=== PATIENT | female | born 1940 | race Caucasian/White ===

== ENCOUNTER 2017-09-03 09:47 | Emergency (ER) | payer MEDICARE, OTHER ==
--- NOTE | 2017-09-03 10:42 | EDM.PDOC ---
ED HPI GENERAL MEDICAL PROBLEM - General Chief Complaint: Neuro Symptoms/Deficits Stated Complaint: MEDICAL Time Seen by Provider: 09/03/17 10:15 Source of Information: Reports: Patient, EMS History Limitations: Reports: No Limitations - History of Present Illness INITIAL COMMENTS - FREE TEXT/NARRATIVE: 76-year-old female with sudden onset of vertigo last evening. She was watching TV when she got up to go to the bathroom and had a sudden onset of spinning sensation and difficulty walking. It bothered her all night, some nausea but no vomiting and no pain. No peripheral symptoms such as extremity weakness. Today she was still having difficulty getting around her apartment so she called the ambulance. They had to assist her to the gurney because she was so unsteady. She has not had previous episodes similar to this, no recent illness, fever, or trauma. Onset: Sudden Duration: Hour(s): (13-14 hours ago, symptoms developed last evening) Severity: Moderate Associated Symptoms: Reports: Malaise, Weakness. Denies: Fever/Chills, Loss of Appetite Right Arm Pain Score (Numeric/FACES): 10 - Related Data Allergies Allergy/AdvReac Type Severity Reaction Status Date / Time azithromycin [From Zithromax] Allergy Hives Verified 09/03/17 16:04 citalopram Allergy Cannot Verified 09/03/17 16:04 Remember paroxetine Allergy Cannot Verified 09/03/17 16:04 Remember Sulfa (Sulfonamide Allergy Rash Verified 09/03/17 16:04 Antibiotics) trazodone Allergy Arrhythmias Verified 09/03/17 16:04 Home Meds: Home Meds Albuterol [Proair HFA] 2 puff INH Q4H 05/11/15 [History] Aspirin [Adult Low Dose Aspirin EC] 81 mg PO DAILY 05/11/15 [History] Biotin 1 mg PO DAILY 05/11/15 [History] Cholecalciferol (Vitamin D3) [Vitamin D3] 1,000 unit PO DAILY 05/11/15 [History] Ipratropium/Albuterol Sulfate [Iprat-Albut 0.5-3(2.5) MG/3 ML] 3 ml INH Q6H PRN 05/11/15 [History] Montelukast [Singulair] 10 mg PO BEDTIME 05/11/15 [History] Multivitamin [Multi-Vitamin Daily] 1 tab PO DAILY 05/11/15 [History] Sertraline [Zoloft] 100 mg PO DAILY 05/11/15 [History] Past Medical History 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 Respiratory History: Reports: COPD, Other (See Below) Other Respiratory History: home 02 3L Neurological History: Reports: Other (See Below) Other Neuro History: ventigo this am ambulance found her sitting on floor in apartment Psychiatric History: Reports: Depression Social & Family History - Tobacco Use Smoking Status *Q: Former Smoker Years of Tobacco use: 30 Used Tobacco, but Quit: Yes Month Tobacco Last Used: 240 Second Hand Smoke Exposure: No - Caffeine Use Caffeine Use: Reports: Coffee - Recreational Drug Use Recreational Drug Use: No - Living Situation & Occupation Living situation: Reports: Alone ED ROS GENERAL - Review of Systems Review Of Systems: See Below Constitutional: Reports: Malaise. Denies: Fever, Chills HEENT: Reports: Other (Left eye is artificial) Respiratory: Denies: Shortness of Breath Cardiovascular: Denies: Chest Pain GI/Abdominal: Denies: Abdominal Pain, Nausea, Vomiting Neurological: Reports: Dizziness. Denies: Headache Psychiatric: Reports: No Symptoms ED EXAM, NEURO - Physical Exam Exam: See Below Exam Limited By: No Limitations General Appearance: Alert, No Apparent Distress Eye Exam: Right Eye: Nystagmus (Patient has a small amount of right eye nystagmus when looking to the left), Left Eye: Other (Left eye is prosthetic) Neck: Normal Inspection. No: Carotid Bruit Respiratory/Chest: No Respiratory Distress, Lungs Clear Cardiovascular: Regular Rate, Rhythm, Extra Beats (Occasional ectopic beats) Neurological: Alert, No Motor/Sensory Deficits Psychiatric: Normal Affect, Normal Mood Skin Exam: Warm, Dry Course - Vital Signs Last Recorded V/S: Last Vital Signs Temp 96.1 F 09/03/17 09:56 Pulse 96 09/03/17 11:14 Resp 22 H 09/03/17 09:56 BP 149/82 H 09/03/17 11:14 Pulse Ox 97 09/03/17 09:56 - Orders/Labs/Meds Meds: Medications Discontinued Medications Generic Name Dose Route Start Last Admin Trade Name Freq PRN Reason Stop Dose Admin Meclizine HCl 25 mg 09/03/17 10:53 09/03/17 10:57 Antivert PO 09/03/17 10:54 25 mg ONETIME ONE Administration - Re-Assessments/Exams Free Text/Narrative Re-Assessment/Exam: 09/03/17 10:49 Because of the intensity of the symptoms and sudden onset, a CT the head was obtained. 09/03/17 11:[address] was negative for any acute findings. It did show some chronic hydrocephaly-like changes and there were no previous films for comparison. 30 minutes after a 25 mg dose of meclizine the patient was feeling much better. She wanted to try to treat this at home so was discharged with extra doses of meclizine to take 3 times daily. I asked her to follow up with her primary physician in the next 1-2 weeks at discuss the CT findings and she can return sooner if worsening. Departure - Departure Time of Disposition: 12:49 Disposition: Home, Self-Care 01 Condition: Good Clinical Impression: Vertigo - Discharge Information Instructions: Vertigo, [id number] Referrals: PCP,None [Primary Care Provider] - Forms: ED Department Discharge Care Plan Goals: Use meclizine as prescribed for the next couple of days if needed. Resume activity as tolerated and return anytime if worsening. Recheck next week if not improving satisfactorily.
[2017-09-03] MEDS ORDERED: Meclizine 25 MG Tab PO ONE (10:53)
--- NOTE | 2017-09-03 11:07 | CT ---
Head wo Cont HISTORY: Sudden severe vertigo COMPARISON: None Total DLP: 708. FINDINGS: There is hydrocephalus. There is dilatation of the lateral ventricles as well as third vent ricle. Fourth ventricle is not dilated. There is no hemorrhage, mass effect, or edema. There are scat tered coarse calcifications involving the cerebral cortex bilaterally. Impression: 1. Findings concerning for obstructive hydrocephalus perhaps at the aqueduct of [place]. If there are prior studies performed elsewhere comparison would be useful. 2. Scattered coarse calcifications of the cerebral cortex bilaterally. The findings suggest a prior g ranulomatous or infectious process.
[2017-09-03 11:14] VITALS: BP 149/82
== END 2017-09-03 12:48 | disposition home or self-care (01) ==
LOC: JP.ED 09:47
DX: R42 Dizziness and giddiness (principal); J44.9 Chronic obstructive pulmonary disease, unspecified; F32.9 Major depressive disorder, single episode, unspecified; Z88.1 Allergy status to other antibiotic agents; Z88.2 Allergy status to sulfonamides; Z88.8 Allergy status to other drugs, medicaments and biological substances; Z87.891 Personal history of nicotine dependence; Z79.82 Long term (current) use of aspirin
CPT/HCPCS: 70450; 99284; A9270

== ENCOUNTER 2017-09-03 15:56 | Inpatient (IN) | payer MEDICARE, OTHER ==
[2017-09-03] MEDS ORDERED: methylPREDNISolone Sodium Succinate 125 MG/2 ML SDV IVPUSH ONE (15:58)
[2017-09-03] MEDS ORDERED: Albuterol/Ipratropium 3.0-0.5 MG/3 ML Neb Soln NEB ONE (16:05)
[2017-09-03] MEDS ORDERED: Albuterol/Ipratropium 3.0-0.5 MG/3 ML Neb Soln ONE (16:07)
--- NOTE | 2017-09-03 16:12 | EDM.PDOC ---
ED HPI GENERAL MEDICAL PROBLEM - General Chief Complaint: Respiratory Problem Stated Complaint: MEDICAL Time Seen by Provider: 09/03/17 15:56 Source of Information: Reports: Patient, EMS History Limitations: Reports: Physical Impairment, Respiratory Distress - History of Present Illness INITIAL COMMENTS - FREE TEXT/NARRATIVE: 76-year-old female who was in the emergency room this morning with vertigo and dizziness went home and several hours later became acutely short of breath. EMS was called and when they arrived she was tripoding, O2 saturations in the mid to upper 80s and laboring. A DuoNeb was given and CPAP applied, O2 saturations 95% on arrival to the emergency room but she was still very short of breath. She does have a history of COPD. She was anxious this morning prior to discharge but not dyspneic. Onset: Sudden (Within the last few hours) Severity: Moderate Improves with: Reports: Other (Nebulizer and CPAP was improving her condition) Associated Symptoms: Reports: Weakness, Other (Evaluated for vertigo earlier this morning). Denies: Fever/Chills, Headaches - Related Data Allergies Allergy/AdvReac Type Severity Reaction Status Date / Time azithromycin [From Zithromax] Allergy Hives Verified 09/03/17 16:04 citalopram Allergy Cannot Verified 09/03/17 16:04 Remember paroxetine Allergy Cannot Verified 09/03/17 16:04 Remember Sulfa (Sulfonamide Allergy Rash Verified 09/03/17 16:04 Antibiotics) trazodone Allergy Arrhythmias Verified 09/03/17 16:04 Home Meds: Home Meds Albuterol [Proair HFA] 2 puff INH Q4H 05/11/15 [History] Aspirin [Adult Low Dose Aspirin EC] 81 mg PO DAILY 05/11/15 [History] Biotin 1 mg PO DAILY 05/11/15 [History] Cholecalciferol (Vitamin D3) [Vitamin D3] 1,000 unit PO DAILY 05/11/15 [History] Ipratropium/Albuterol Sulfate [Iprat-Albut 0.5-3(2.5) MG/3 ML] 3 ml INH Q6H PRN 05/11/15 [History] Montelukast [Singulair] 10 mg PO BEDTIME 05/11/15 [History] Multivitamin [Multi-Vitamin Daily] 1 tab PO DAILY 09/05/15 [History] Sertraline [Zoloft] 100 mg PO DAILY 05/11/15 [History] Past Medical History 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 Respiratory History: Reports: COPD, Other (See Below) Other Respiratory History: home 02 3L Neurological History: Reports: Other (See Below) Other Neuro History: ventigo this am ambulance found her sitting on floor in apartment Psychiatric History: Reports: Depression Social & Family History - Tobacco Use Smoking Status *Q: Former Smoker Years of Tobacco use: 30 Used Tobacco, but Quit: Yes Month Tobacco Last Used: 240 Second Hand Smoke Exposure: No - Caffeine Use Caffeine Use: Reports: Coffee - Recreational Drug Use Recreational Drug Use: No - Living Situation & Occupation Living situation: Reports: Alone ED ROS GENERAL - Review of Systems Review Of Systems: Unable To Obtain (Patient is unable to respond with the CPAP and dyspnea, a review of systems was obtained on her visit this morning) ED EXAM, GENERAL - Physical Exam Exam: See Below Exam Limited By: Respiratory Distress General Appearance: Moderate Distress Eye Exam: Bilateral Eye: Other (Prosthetic left eye) Respiratory/Chest: Respiratory Distress, Decreased Breath Sounds (Bilaterally, especially on the right). No: Crackles, Rales Cardiovascular: Regular Rate, Rhythm, Tachycardia GI/Abdominal: Non-Tender Extremities: No: Pedal Edema Neurological: Alert, Oriented Psychiatric: Anxious Skin Exam: Warm, Dry Course - Vital Signs Last Recorded V/S: Last Vital Signs Temp 98.9 F 09/04/17 06:00 Pulse 121 H 09/04/17 06:00 Resp 25 H 09/04/17 06:00 BP 192/87 H 09/04/17 06:00 Pulse Ox 87 L 09/04/17 06:00 - Orders/Labs/Meds Orders: Active Orders 24 hr Category Date Time Status Chest 1V Frontal [CR] Stat Exams 09/03/17 15:58 Taken Medication Orders Acetaminophen (Tylenol) 650 mg PO Q4H PRN PRN Reason: Pain (Mild 1-3)/fever Acetaminophen (Tylenol) 650 mg RECTAL Q4H PRN PRN Reason: Mild pain/fever Albuterol (Proventil Neb Soln) 2.5 mg NEB Q4H PRN PRN Reason: Shortness Of Breath/wheezing Last Admin: 09/04/17 01:22 Dose: 2.5 mg Albuterol/Ipratropium (Duoneb 3.0-0.5 Mg/3 Ml) 3 ml NEB QIDRT [facility] Last Admin: 09/04/17 07:15 Dose: 3 ml Admin: 09/03/17 21:05 Dose: 3 ml Aspirin (Halfprin) 81 mg PO DAILY [facility] Budesonide (Pulmicort) 0.5 mg NEB BIDRT [facility] Last Admin: 09/04/17 07:15 Dose: 0.5 mg Admin: 09/03/17 21:05 Dose: 0.5 mg Docusate Sodium (Colace) 100 mg PO BID PRN PRN Reason: Constipation Enoxaparin Sodium (Lovenox) 40 mg SUBCUT Q24H [facility] Levofloxacin/Dextrose 750 mg/ (Premix) 150 mls @ 100 mls/hr IV Q24H [facility] Last Admin: 09/03/17 18:55 Dose: 100 mls/hr Sodium Chloride (Normal Saline) 1,000 mls @ 75 mls/hr IV ASDIRECTED [facility] Last Admin: 09/04/17 06:10 Dose: 75 mls/hr Infusion: 09/04/17 04:12 Dose: 75 mls/hr Infusion: 09/03/17 23:55 Dose: 75 mls/hr Admin: 09/03/17 18:29 Dose: 125 mls/hr Lorazepam (Ativan) 0.5 mg IVPUSH Q2H PRN PRN Reason: Anxiety Last Admin: 09/04/17 05:58 Dose: 0.5 mg Admin: 09/03/17 23:45 Dose: 0.5 mg Admin: 09/03/17 21:06 Dose: 0.5 mg Magnesium Hydroxide (Milk Of Magnesia) 30 ml PO Q12H PRN PRN Reason: Constipation Methylprednisolone Sodium Succinate (Solu-Medrol) 40 mg IVPUSH Q6H [facility] Last Admin: 09/04/17 04:04 Dose: 40 mg Admin: 09/03/17 21:14 Dose: 40 mg Montelukast Sodium (Singulair) 10 mg PO BEDTIME [facility] Last Admin: 09/03/17 21:14 Dose: 10 mg Ondansetron HCl (Zofran) 4 mg IV Q4H PRN PRN Reason: Nausea/Vomiting Oxycodone HCl (Oxycodone) 5 mg PO Q4H PRN PRN Reason: Pain (moderate 4-6) Last Admin: 09/04/17 01:06 Dose: 5 mg Polyethylene Glycol (Miralax) 17 gm PO DAILY PRN PRN Reason: Constipation Sertraline HCl (Zoloft) 100 mg PO DAILY [facility] Sodium Chloride (Saline Flush) 10 ml FLUSH ASDIRECTED PRN PRN Reason: Keep Vein Open Labs: Laboratory Tests 09/03/17 09/03/17 09/03/17 Range/Units 15:58 15:58 16:25 WBC 12.8 H (4.5-11.0) K/uL RBC 4.74 (3.30-5.50) M/uL Hgb 14.1 (12.0-15.0) g/dL Hct 43.4 (36.0-48.0) % MCV 92 (80-98) fL MCH 30 (27-31) pg MCHC 33 (32-36) % Plt Count 285 (150-400) K/uL Neut % (Auto) 92 H (36-66) % Lymph % (Auto) 4 L (24-44) % [place]vert % (Auto) 5 (2-6) % Eos % (Auto) 0 L (2-4) % Baso % (Auto) 0 (0-1) % Puncture Site Rt radial ABG pH 7.263 L (7.350-7.450) ABG pCO2 62.6 H (35.0-42.0) mmHg ABG pO2 88.0 (75.0-100.0) mmHg ABG HCO3 27.3 H (22.0-26.0) mmol/L ABG Total CO2 24.8 (21.0-25.0) mmol/L ABG O2 Saturation 95.2 (95.0-98.0) % ABG O2 Content 18.9 (15.0-23.0) %vol ABG Base Excess -0.8 mm/L ABG Hemoglobin 14.2 (12.0-16.0) g/dL ABG Oxyhemoglobin 94.2 % ABG Carboxyhemoglobin 0.3 (0.0-1.6) % ABG Methemoglobin 0.7 % Damien Test Pass O2 Delivery Device Non rebr mask Oxygen Flow Rate 10 L Sodium 137 L (140-148) mmol/L Potassium 4.9 (3.6-5.2) mmol/L Chloride 100 (100-108) mmol/L Carbon Dioxide 28 (21-32) mmol/L Anion Gap 13.9 (5.0-14.0) mmol/L BUN 20 H D (7-18) mg/dL Creatinine 0.7 (0.6-1.0) mg/dL Est Cr Clr Drug Dosing 49.88 mL/min Estimated GFR (MDRD) > 60 (>60) Glucose 166 H (74-106) mg/dL Calcium 9.0 (8.5-10.1) mg/dL Total Bilirubin 0.5 (0.2-1.0) mg/dL AST 32 (15-37) U/L ALT 40 (12-78) U/L Alkaline Phosphatase 76 (46-116) U/L Troponin I 0.085 H* (0.000-0.056) ng/mL Total Protein 6.9 (6.4-8.2) g/dL Albumin 3.7 (3.4-5.0) g/dL Globulin 3.2 (2.3-3.5) g/dL Albumin/Globulin Ratio 1.2 (1.2-2.2) Meds: Medications Generic Name Dose Route Start Last Admin Trade Name Freq PRN Reason Stop Dose Admin Acetaminophen 650 mg 09/03/17 17:39 Tylenol PO Q4H PRN Pain (Mild 1-3)/fever Acetaminophen 650 mg 09/03/17 17:39 Tylenol RECTAL Q4H PRN Mild pain/fever Albuterol 2.5 mg 09/03/17 17:39 09/04/17 01:22 Proventil Neb Soln NEB 2.5 mg Q4H PRN Administration Shortness Of Breath/wheezing Albuterol/Ipratropium 3 ml 09/03/17 21:00 09/04/17 07:15 Duoneb 3.0-0.5 Mg/3 Ml NEB 3 ml QIDRT [facility] Administration Aspirin 81 mg 09/04/17 09:00 Halfprin PO DAILY [facility] Budesonide 0.5 mg 09/03/17 21:00 09/04/17 07:15 Pulmicort NEB 0.5 mg BIDRT [facility] Administration Docusate Sodium 100 mg 09/03/17 17:39 Colace PO BID PRN Constipation Enoxaparin Sodium 40 mg 09/04/17 20:00 Lovenox SUBCUT Q24H [facility] Levofloxacin/Dextrose 750 mg/ 150 mls @ 100 mls/hr 09/03/17 18:00 09/03/17 18 :55 Premix IV 100 mls/hr Q24H [facility] Administration Sodium Chloride 1,000 mls @ 75 mls/hr 09/03/17 17:39 09/04/17 06:10 Normal Saline IV 75 mls/hr ASDIRECTED [facility] Administration Lorazepam 0.5 mg 09/03/17 17:39 09/04/17 05:58 Ativan IVPUSH 0.5 mg Q2H PRN Administration Anxiety Magnesium Hydroxide 30 ml 09/03/17 17:39 Milk Of Magnesia PO Q12H PRN Constipation Methylprednisolone Sodium Succinate 40 mg 09/03/17 22:00 09/04/17 04:04 Solu-Medrol IVPUSH 40 mg Q6H [facility] Administration Montelukast Sodium 10 mg 09/03/17 21:00 09/03/17 21:14 Singulair PO 10 mg BEDTIME [facility] Administration Ondansetron HCl 4 mg 09/03/17 17:39 Zofran IV Q4H PRN Nausea/Vomiting Oxycodone HCl 5 mg 09/03/17 17:39 09/04/17 01:06 Oxycodone PO 5 mg Q4H PRN Administration Pain (moderate 4-6) Polyethylene Glycol 17 gm 09/03/17 17:39 Miralax PO DAILY PRN Constipation Sertraline HCl 100 mg 09/04/17 09:00 Zoloft PO DAILY [facility] Sodium Chloride 10 ml 09/03/17 17:39 Saline Flush FLUSH ASDIRECTED PRN Keep Vein Open Discontinued Medications Generic Name Dose Route Start Last Admin Trade Name Freq PRN Reason Stop Dose Admin Albuterol/Ipratropium 3 ml 09/03/17 16:05 09/03/17 16:40 Duoneb 3.0-0.5 Mg/3 Ml NEB 09/03/17 16:06 3 ml ONETIME ONE Administration Albuterol/Ipratropium Confirm 09/03/17 16:07 Duoneb 3.0-0.5 Mg/3 Ml Administered 09/03/17 16:08 Dose 3 ml .ROUTE .STK-MED ONE Enoxaparin Sodium 40 mg 09/03/17 17:39 09/03/17 19:52 Lovenox SUBCUT 40 mg DAILY [facility] Administration Lorazepam 0.5 mg 09/03/17 16:28 09/03/17 16:40 Ativan IVPUSH 09/03/17 16:29 0.5 mg ONETIME ONE Administration Lorazepam 0.5 mg 09/03/17 17:19 09/03/17 17:35 Ativan IVPUSH 09/03/17 17:20 0.5 mg ONETIME ONE Administration Methylprednisolone Sodium Succinate 125 mg 09/03/17 15:58 09/03/17 16:40 Solu-Medrol IVPUSH 09/03/17 15:59 125 mg ONETIME ONE Administration - Re-Assessments/Exams Free Text/Narrative Re-Assessment/Exam: 09/03/17 16:12 A 1 view chest x-ray showed hyperinflation of the right lung, chronic scarring but no acute findings, stable from previous x-rays. And second DuoNeb was given , an IV started and the patient was given 125 mg of Solu-Medrol. CBC CMP and troponin were obtained. 09/03/17 17:11 Hemoglobin was normal. White count was 14,000. Troponin returned slightly elevated at 0.08, likely from cardiac stress. BiPAP was ordered. ABGs done revealed a pH of 7.26, PCO2 of 62.6. Ativan 0.5 mg was given IV and the patient started to slowly improve. Dr. Morris was consulted to admit the patient for COPD exacerbation. I did discuss her head CT findings with neurology and it was felt the findings were chronic and very unlikely acute, however if she develops neurologic symptoms she would need urgent transfer to a neurosurgery capable hospital. Departure - Departure Time of Disposition: 18:06 Disposition: Admitted As Inpatient 67 Condition: Poor Clinical Impression: COPD exacerbation, Respiratory distress, acute, Anxiety - Discharge Information - My Orders Last 24 Hours: My Active Orders 09/03/17 15:58 Chest 1V Frontal [CR] Stat - Assessment/Plan Last 24 Hours: My Active Orders 09/03/17 15:58 Chest 1V Frontal [CR] Stat
[2017-09-03] MEDS ORDERED: LORazepam 2 MG/ML MDV IVPUSH ONE ×2 (16:28→17:19)
--- NOTE | 2017-09-03 17:38 | PCM.HP ---
H&P History of Present Illness - General Date of Service: 09/03/17 Admit Problem/Dx: Admission Diagnosis/Problem Admission Diagnosis/Problem Hypoxia Source of Information: Patient, Family, Old Records, Provider, RN Notes Reviewed History Limitations: Reports: Respiratory Distress (On BiPAP) - History of Present Illness Initial Comments - Free Text/Narative: Ms. Cheatham is a 76-year-old woman admitted through the emergency department with acute on chronic respiratory failure. At baseline she has severe COPD and does require use of oxygen at home. She came into the emergency department this morning because of acute onset of vertigo which occurred on the evening prior to admission and persisted into the following morning. CT scan of the head was obtained which did show dilatation of the ventricles, she had no specific neurologic compromise and after review with neurology it was felt likely that this was chronic and did not require acute evaluation. She was discharged home with family members. After arriving at home she rapidly developed significant respiratory compromise with increased shortness of breath. EMS was contacted and brought her into the emergency department for reassessment. She was noted to have severe respiratory compromise with hypoxia and hypercapnia. Chest x-ray shows no obvious infiltrate on initial assessment, white blood cell count is mildly elevated. Respiratory rate has remained increased despite supplemental oxygen and nebulizer therapy. She has been started on noninvasive positive pressure ventilation in the emergency department. I reviewed her wishes for CODE STATUS when I saw her in the emergency department and she is very emphatic about not wanting CPR, defibrillation, or intubation with mechanical ventilation. Both of her sons were present during this discussion. - Related Data Allergies/Adverse Reactions: Allergies Allergy/AdvReac Type Severity Reaction Status Date / Time azithromycin [From Zithromax] Allergy Hives Verified 09/03/17 16:04 citalopram Allergy Cannot Verified 09/03/17 16:04 Remember paroxetine Allergy Cannot Verified 09/03/17 16:04 Remember Sulfa (Sulfonamide Allergy Rash Verified 09/03/17 16:04 Antibiotics) trazodone Allergy Arrhythmias Verified 09/03/17 16:04 Home Medications: Home Meds Albuterol [Proair HFA] 2 puff INH Q4H 05/11/15 [History] Aspirin [Adult Low Dose Aspirin EC] 81 mg PO DAILY 05/11/15 [History] Biotin 1 mg PO DAILY 05/11/15 [History] Cholecalciferol (Vitamin D3) [Vitamin D3] 1,000 unit PO DAILY 05/11/15 [History] Ipratropium/Albuterol Sulfate [Iprat-Albut 0.5-3(2.5) MG/3 ML] 3 ml INH Q6H PRN 05/11/15 [History] Montelukast [Singulair] 10 mg PO BEDTIME 05/11/15 [History] Multivitamin [Multi-Vitamin Daily] 1 tab PO DAILY 05/11/15 [History] Sertraline [Zoloft] 100 mg PO DAILY 05/11/15 [History] Past Medical History 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 Respiratory History: Reports: COPD, Other (See Below) Other Respiratory History: home 02 3L Neurological History: Reports: Other (See Below) Other Neuro History: ventigo this am ambulance found her sitting on floor in apartment Psychiatric History: Reports: Depression Social & Family History - Tobacco Use Smoking Status *Q: Former Smoker Years of Tobacco use: 30 Used Tobacco, but Quit: Yes Month Tobacco Last Used: 240 Second Hand Smoke Exposure: No - Caffeine Use Caffeine Use: Reports: Coffee - Recreational Drug Use Recreational Drug Use: No - Living Situation & Occupation Living situation: Reports: Alone H&P Review of Systems - Review of Systems: Review Of Systems: See Below General: Reports: Fever, Chills, Weakness, Diaphoresis, Decreased Appetite HEENT: Reports: Vertigo. Denies: Ear Pain, Eye Pain, Headaches Pulmonary: Reports: Shortness of Breath, Wheezing, Cough. Denies: Sputum, Hemoptysis Cardiovascular: Reports: Dyspnea on Exertion. Denies: Chest Pain, Palpitations , Orthopnea, PND, Edema, Lightheadedness Gastrointestinal: Reports: No Symptoms Genitourinary: Reports: No Symptoms Musculoskeletal: Reports: No Symptoms Skin: Reports: No Symptoms Psychiatric: Reports: No Symptoms Neurological: Reports: No Symptoms Hematologic/Lymphatic: Reports: No Symptoms Immunologic: Reports: No Symptoms Exam - Exam Exam: See Below - Vital Signs Vital Signs: Last Vital Signs Temp 95.8 F 09/03/17 16:39 Pulse 127 H 09/03/17 16:59 Resp 32 H 09/03/17 16:39 BP 172/84 H 09/03/17 16:59 Pulse Ox 88 L 09/03/17 16:59 Weight: 105 lb 13.15 oz - Exam Quality Assessment: Supplemental Oxygen, DVT Prophylaxis General: Alert, Cooperative, Severe Distress HEENT: Conjunctiva Clear, Hearing Intact, Mucosa Moist & [place], Normal Nasal Septum, Posterior Pharynx Clear, Pupils Equal Neck: Supple, Trachea Midline, +2 Carotid Pulse wo Bruit Lungs: Decreased Breath Sounds, Rhonchi, Wheezing. No: Crackles, Rales, Rub, Stridor Cardiovascular: Regular Rhythm, Normal S1, Normal S2, Tachycardia. No: Irregular Rhythm, Systolic Murmur, Diastolic Murmur GI/Abdominal Exam: Soft, Non-Tender, No Organomegaly, No Distention Back Exam: Normal Inspection, Full Range of Motion Extremities: Non-Tender, No Pedal Edema Skin: Warm, Dry, Intact Neurological: Cranial Nerves Intact, Strength Equal Bilateral, Normal Speech, Normal Tone, Sensation Intact. No: Focal Deficit Neuro Extensive - Mental Status: Alert, Oriented x3, Normal Mood/Affect, Normal Cognition, Memory Intact - Patient Data Lab Results Last 24 hrs: Laboratory Results - last 24 hr 09/03/17 09/03/17 09/03/17 Range/Units 15:58 15:58 16:25 WBC 12.8 H (4.5-11.0) K/uL RBC 4.74 (3.30-5.50) M/uL Hgb 14.1 (12.0-15.0) g/dL Hct 43.4 (36.0-48.0) % MCV 92 (80-98) fL MCH 30 (27-31) pg MCHC 33 (32-36) % Plt Count 285 (150-400) K/uL Neut % (Auto) 92 H (36-66) % Lymph % (Auto) 4 L (24-44) % [place] % (Auto) 5 (2-6) % Eos % (Auto) 0 L (2-4) % Baso % (Auto) 0 (0-1) % Puncture Site Rt radial ABG pH 7.263 L (7.350-7.450) ABG pCO2 62.6 H (35.0-42.0) mmHg ABG pO2 88.0 (75.0-100.0) mmHg ABG HCO3 27.3 H (22.0-26.0) mmol/L ABG Total CO2 24.8 (21.0-25.0) mmol/L ABG O2 Saturation 95.2 (95.0-98.0) % ABG O2 Content 18.9 (15.0-23.0) %vol ABG Base Excess -0.8 mm/L ABG Hemoglobin 14.2 (12.0-16.0) g/dL ABG Oxyhemoglobin 94.2 % ABG Carboxyhemoglobin 0.3 (0.0-1.6) % ABG Methemoglobin 0.7 % Damien Test Pass O2 Delivery Device Non rebr mask Oxygen Flow Rate 10 L Sodium 137 L (140-148) mmol/L Potassium 4.9 (3.6-5.2) mmol/L Chloride 100 (100-108) mmol/L Carbon Dioxide 28 (21-32) mmol/L Anion Gap 13.9 (5.0-14.0) mmol/L BUN 20 H D (7-18) mg/dL Creatinine 0.7 (0.6-1.0) mg/dL Est Cr Clr Drug Dosing 49.88 mL/min Estimated GFR (MDRD) > 60 (>60) Glucose 166 H (74-106) mg/dL Calcium 9.0 (8.5-10.1) mg/dL Total Bilirubin 0.5 (0.2-1.0) mg/dL AST 32 (15-37) U/L ALT 40 (12-78) U/L Alkaline Phosphatase 76 (46-116) U/L Troponin I 0.085 H* (0.000-0.056) ng/mL Total Protein 6.9 (6.4-8.2) g/dL Albumin 3.7 (3.4-5.0) g/dL Globulin 3.2 (2.3-3.5) g/dL Albumin/Globulin Ratio 1.2 (1.2-2.2) Result Diagrams: 09/03/17 15:58 09/03/17 15:58 *Q Meaningful Use (ADM) - VTE *Q VTE Criteria *Q: - VTE Risk Assess *Q Each Risk Factor Represents 1 Point: Abnormal Pulmonary Function (COPD) Total Score 1 Point Risk Factors: 1 Each Risk Factor Represents 2 Points: None Total Score 2 Point Risk Factors: 0 Each Risk Factor Represents 3 Points: Age 75 Years or Greater Total Score 3 Point Risk Factors: 3 Each Risk Factor Represents 5 Points: None Total Score 5 Point Risk Factors: 0 Venous Thromboembolism Risk Factor Score *Q: 4 - Stroke *Q Stroke Criteria *Q: - AMI *Q AMI Criteria *Q: Problem List Initiated/Reviewed/Updated: Yes Orders Last 24hrs: Active Orders 24 hr Category Date Time Status Patient Status Manage Transfer [TRANSFER] Routine ADT 09/03/17 17:21 Ordered BIPAP Adult [RT BiPAP/CPAP] [RC] ASDIRECTED Care 09/03/17 16:42 Active RT Aerosol Therapy [RC] ASDIRECTED Care 09/03/17 16:06 Active Chest 1V Frontal [CR] Stat Exams 09/03/17 15:58 Taken Resuscitation Status Routine Resus Stat 09/03/17 17:22 Ordered Assessment/Plan Comment:: ASSESSMENT AND PLAN ACUTE ON CHRONIC HYPOXIC AND HYPERCAPNIC RESPIRATORY FAILURE-secondary to COPD exacerbation and likely underlying bronchitis. Chest x-ray shows no obvious infiltrate, white blood cell count is modestly elevated. She has a long- standing history of oxygen-dependent COPD. -Blood and sputum cultures pending -IV fluids for hydration -Noninvasive positive pressure ventilation -Nebulizer therapy with albuterol, duo nebs, and Pulmicort -Levofloxacin 750 mg IV every 24 hours -Solu-Medrol 40 milligrams IV every 6 hours COPD EXACERBATION SECONDARY TO BRONCHITIS -Management as above BENIGN POSITIONAL VERTIGO -Anti-medic therapy as needed -Symptomatic care PALLIATIVE CARE-patient is adamant about not wanting aggressive interventions past what we are currently doing. She understands that she is experiencing severe respiratory compromise and current interventions may not be enough to pull her through this episode. If she becomes worse despite interventions would like to be comfortable but does not want to consider intubation or mechanical ventilation. MAINTENANCE ISSUES -DVT prophylaxis; Lovenox 40 mg subcutaneous daily -GI prophylaxis; not indicated -Bellamy catheter; not indicated -Nutrition; regular diet -Nicotine dependence; not required CODE STATUS-DNR/DNI ADMISSION STATUS-patient will be admitted to inpatient status, expect at least a 2 night hospital stay for evaluation and management of problems as outlined above. At the time of this admission I do not reasonably expected evaluation and management of this problem will require more than a 96 hour hospital stay. DISPOSITION-anticipate discharge to home after the hospital stay. PRIMARY CARE PROVIDER-
[2017-09-03] MEDS ORDERED: Acetaminophen 650 MG Supp RECTAL PRN (17:39)
[2017-09-03] MEDS ORDERED: Enoxaparin 40 MG/0.4 ML Syringe SUBCUT SCH (17:39)
[2017-09-03] MEDS ORDERED: Ondansetron 4 MG/2 ML SDV IV PRN (17:39)
[2017-09-03] MEDS ORDERED: Polyethylene Glycol 3350 Powder 17 GM Packet PO PRN (17:39)
[2017-09-03] MEDS ORDERED: Sodium Chloride 0.9% 10 ML Syringe FLUSH PRN (17:39)
[2017-09-03] MEDS ORDERED: Acetaminophen 325 MG Tab PO PRN (17:39)
[2017-09-03] MEDS ORDERED: Magnesium Hydroxide 400 MG/5 ML Susp 30 ML Cup PO PRN (17:39)
[2017-09-03] MEDS ORDERED: Docusate Sodium 100 MG Cap PO PRN (17:39)
[2017-09-03] MEDS: Sodium Chloride 0.9% 1,000 ML IV SCH (18:29)
[2017-09-03] MEDS: Levofloxacin/Dextrose 5%-Water 750 MG in Premix Bag 1 BAG IV SCH (18:55)
[2017-09-03] MEDS: Albuterol/Ipratropium 3.0-0.5 MG/3 ML Neb Soln NEB SCH (21:05)
[2017-09-03] MEDS: Budesonide 0.5 MG/2 ML Neb Susp NEB SCH (21:05)
[2017-09-03] MEDS: LORazepam 2 MG/ML MDV IVPUSH PRN ×2 (21:06→23:45)
[2017-09-03] MEDS: Montelukast 10 MG Tab PO SCH (21:14)
[2017-09-03] MEDS: methylPREDNISolone Sodium Succinate 40 MG/1 ML SDV IVPUSH SCH (21:14)
[2017-09-04] MEDS: oxyCODONE 5 MG Tab PO PRN (01:06)
[2017-09-04] MEDS: Albuterol 0.083% 2.5 MG/3 ML Neb Soln NEB PRN (01:22)
[2017-09-04] MEDS: methylPREDNISolone Sodium Succinate 40 MG/1 ML SDV IVPUSH SCH ×4 (04:04→21:30)
[2017-09-04] MEDS: LORazepam 2 MG/ML MDV IVPUSH PRN ×2 (05:58→20:07)
[2017-09-04] MEDS: Sodium Chloride 0.9% 1,000 ML IV SCH ×2 (06:10→21:30)
[2017-09-04] MEDS: Albuterol/Ipratropium 3.0-0.5 MG/3 ML Neb Soln NEB SCH ×4 (07:15→20:28)
[2017-09-04] MEDS: Budesonide 0.5 MG/2 ML Neb Susp NEB SCH ×2 (07:15→20:28)
[2017-09-04] MEDS: Aspirin 81 MG Tab.EC PO SCH (08:33)
[2017-09-04] MEDS: Sertraline 50 MG Tab PO SCH (08:33)
--- NOTE | 2017-09-04 10:44 | PCM.PN ---
- General Info Date of Service: 09/04/17 Subjective Update: This patient has improved somewhat since admission, blood gases from this morning show adequate oxygenation and less CO2 retention. Continues to require use of noninvasive positive pressure ventilation and is unable to tolerate being off of support for any significant period of time. She reports that she is presently comfortable with use of the BiPAP. - Review of Systems General: Reports: Weakness. Denies: Fever, Chills Pulmonary: Reports: Shortness of Breath, Cough, Wheezing. Denies: Pleuritic Chest Pain, Sputum, Hemoptysis Cardiovascular: Reports: Dyspnea on Exertion. Denies: Chest Pain, Palpitations , Orthopnea, PND Gastrointestinal: Reports: No Symptoms - Patient Data Vitals - Most Recent: Last Vital Signs Temp 98.9 F 09/04/17 06:00 Pulse 121 H 09/04/17 06:00 Resp 25 H 09/04/17 06:00 BP 192/87 H 09/04/17 06:00 Pulse Ox 87 L 09/04/17 06:00 Weight - Most Recent: 110 lb 9.6 oz I&O - Last 24 Hours: Intake & Output 09/03/17 09/04/17 09/04/17 22:59 06:59 14:59 Intake Total 953 Output Total 150 Balance 803 Lab Results Last 24 Hours: Laboratory Results - last 24 hr 09/03/17 09/03/17 09/03/17 Range/Units 18:00 19:34 23:10 WBC (4.5-11.0) K/uL RBC (3.30-5.50) M/uL Hgb (12.0-15.0) g/dL Hct (36.0-48.0) % MCV (80-98) fL MCH (27-31) pg MCHC (32-36) % Plt Count (150-400) K/uL Neut % (Auto) (36-66) % Lymph % (Auto) (24-44) % [place] % (Auto) (2-6) % Eos % (Auto) (2-4) % Baso % (Auto) (0-1) % Puncture Site Lt radial ABG pH 7.254 L (7.350-7.450) ABG pCO2 61.2 H (35.0-42.0) mmHg ABG pO2 160.0 H (75.0-100.0) mmHg ABG HCO3 26.1 H (22.0-26.0) mmol/L ABG Total CO2 24.0 (21.0-25.0) mmol/L ABG O2 Saturation 98.8 H (95.0-98.0) % ABG O2 Content 18.7 (15.0-23.0) %vol ABG Base Excess -1.8 mm/L ABG Hemoglobin 13.5 (12.0-16.0) g/dL ABG Oxyhemoglobin 97.5 % ABG Carboxyhemoglobin 0.5 (0.0-1.6) % ABG Methemoglobin 0.8 % Damien Test Pass O2 Delivery Device Bipap Oxygen Flow Rate L Sodium (140-148) mmol/L Potassium (3.6-5.2) mmol/L Chloride (100-108) mmol/L Carbon Dioxide (21-32) mmol/L Anion Gap (5.0-14.0) mmol/L BUN (7-18) mg/dL Creatinine (0.6-1.0) mg/dL Est Cr Clr Drug Dosing mL/min Estimated GFR (MDRD) (>60) Glucose (74-106) mg/dL Lactic Acid 1.3 (0.4-2.0) mmol/L Calcium (8.5-10.1) mg/dL Magnesium (1.8-2.4) mg/dL Troponin I 0.659 H* (0.000-0.056) ng/mL 09/04/17 09/04/17 09/04/17 Range/Units 05:55 05:55 05:55 WBC 16.5 H (4.5-11.0) K/uL RBC 4.19 (3.30-5.50) M/uL Hgb 12.5 (12.0-15.0) g/dL Hct 39.0 (36.0-48.0) % MCV 93 (80-98) fL MCH 30 (27-31) pg MCHC 32 (32-36) % Plt Count 197 (150-400) K/uL Neut % (Auto) 95 H (36-66) % Lymph % (Auto) 2 L (24-44) % [place] % (Auto) 3 (2-6) % Eos % (Auto) 0 L (2-4) % Baso % (Auto) 0 (0-1) % Puncture Site R radial ABG pH 7.341 L (7.350-7.450) ABG pCO2 46.9 H (35.0-42.0) mmHg ABG pO2 72.8 L (75.0-100.0) mmHg ABG HCO3 24.7 (22.0-26.0) mmol/L ABG Total CO2 22.6 (21.0-25.0) mmol/L ABG O2 Saturation 94.6 L (95.0-98.0) % ABG O2 Content 16.1 (15.0-23.0) %vol ABG Base Excess -0.8 mm/L ABG Hemoglobin 12.3 (12.0-16.0) g/dL ABG Oxyhemoglobin 92.5 % ABG Carboxyhemoglobin 1.4 (0.0-1.6) % ABG Methemoglobin 0.8 % Damien Test [place] O2 Delivery Device Bipap Oxygen Flow Rate L Sodium 137 L (140-148) mmol/L Potassium 4.7 (3.6-5.2) mmol/L Chloride 103 (100-108) mmol/L Carbon Dioxide 26 (21-32) mmol/L Anion Gap 12.7 (5.0-14.0) mmol/L BUN 25 H (7-18) mg/dL Creatinine 0.7 (0.6-1.0) mg/dL Est Cr Clr Drug Dosing 49.88 mL/min Estimated GFR (MDRD) > 60 (>60) Glucose 129 H (74-106) mg/dL Lactic Acid (0.4-2.0) mmol/L Calcium 8.6 (8.5-10.1) mg/dL Magnesium 1.9 (1.8-2.4) mg/dL Troponin I 0.509 H* (0.000-0.056) ng/mL Med Orders - Current: Current Medications Acetaminophen (Tylenol) 650 mg PO Q4H PRN PRN Reason: Pain (Mild 1-3)/fever Acetaminophen (Tylenol) 650 mg RECTAL Q4H PRN PRN Reason: Mild pain/fever Albuterol (Proventil Neb Soln) 2.5 mg NEB Q4H PRN PRN Reason: Shortness Of Breath/wheezing Last Admin: 09/04/17 01:22 Dose: 2.5 mg Albuterol/Ipratropium (Duoneb 3.0-0.5 Mg/3 Ml) 3 ml NEB QIDRT [facility] Last Admin: 09/04/17 10:20 Dose: 3 ml Aspirin (Halfprin) 81 mg PO DAILY [facility] Last Admin: 09/04/17 08:33 Dose: 81 mg Budesonide (Pulmicort) 0.5 mg NEB BIDRT [facility] Last Admin: 09/04/17 07:15 Dose: 0.5 mg Docusate Sodium (Colace) 100 mg PO BID PRN PRN Reason: Constipation Enoxaparin Sodium (Lovenox) 40 mg SUBCUT Q24H [facility] Levofloxacin/Dextrose 750 mg/ (Premix) 150 mls @ 100 mls/hr IV Q24H [facility] Last Admin: 09/03/17 18:55 Dose: 100 mls/hr Sodium Chloride (Normal Saline) 1,000 mls @ 50 mls/hr IV ASDIRECTED [facility] Lorazepam (Ativan) 0.5 mg IVPUSH Q2H PRN PRN Reason: Anxiety Last Admin: 09/04/17 05:58 Dose: 0.5 mg Magnesium Hydroxide (Milk Of Magnesia) 30 ml PO Q12H PRN PRN Reason: Constipation Methylprednisolone Sodium Succinate (Solu-Medrol) 40 mg IVPUSH Q6H [facility] Last Admin: 09/04/17 04:04 Dose: 40 mg Montelukast Sodium (Singulair) 10 mg PO BEDTIME [facility] Last Admin: 09/03/17 21:14 Dose: 10 mg Ondansetron HCl (Zofran) 4 mg IV Q4H PRN PRN Reason: Nausea/Vomiting Oxycodone HCl (Oxycodone) 5 mg PO Q4H PRN PRN Reason: Pain (moderate 4-6) Last Admin: 09/04/17 01:06 Dose: 5 mg Polyethylene Glycol (Miralax) 17 gm PO DAILY PRN PRN Reason: Constipation Sertraline HCl (Zoloft) 100 mg PO DAILY [facility] Last Admin: 09/04/17 08:33 Dose: 100 mg Sodium Chloride (Saline Flush) 10 ml FLUSH ASDIRECTED PRN PRN Reason: Keep Vein Open Discontinued Medications Albuterol/Ipratropium (Duoneb 3.0-0.5 Mg/3 Ml) 3 ml NEB ONETIME ONE Stop: 09/03/17 16:06 Last Admin: 09/03/17 16:40 Dose: 3 ml Albuterol/Ipratropium (Duoneb 3.0-0.5 Mg/3 Ml) Confirm Administered Dose 3 ml .ROUTE .STK-MED ONE Stop: 09/03/17 16:08 Enoxaparin Sodium (Lovenox) 40 mg SUBCUT DAILY [facility] Last Admin: 09/03/17 19:52 Dose: 40 mg Sodium Chloride (Normal Saline) 1,000 mls @ 75 mls/hr IV ASDIRECTED [facility] Last Admin: 09/04/17 06:10 Dose: 75 mls/hr Lorazepam (Ativan) 0.5 mg IVPUSH ONETIME ONE Stop: 09/03/17 16:29 Last Admin: 09/03/17 16:40 Dose: 0.5 mg Lorazepam (Ativan) 0.5 mg IVPUSH ONETIME ONE Stop: 09/03/17 17:20 Last Admin: 09/03/17 17:35 Dose: 0.5 mg Methylprednisolone Sodium Succinate (Solu-Medrol) 125 mg IVPUSH ONETIME ONE Stop: 09/03/17 15:59 Last Admin: 09/03/17 16:40 Dose: 125 mg - Exam Quality Assessment: Supplemental Oxygen, DVT Prophylaxis General: Alert, Cooperative, Moderate Distress Lungs: Decreased Breath Sounds, Rhonchi, Wheezing. No: Crackles, Rales, Rub, Stridor Cardiovascular: Regular Rhythm, No Murmurs, Tachycardia GI/Abdominal Exam: Soft, Non-Tender, No Organomegaly, No Distention Extremities: Non-Tender, No Pedal Edema Skin: Warm, Dry, Intact - Problem List Review Problem List Initiated/Reviewed/Updated: Yes - My Orders Last 24 Hours: My Active Orders 09/03/17 17:22 Resuscitation Status Routine 09/03/17 17:39 Patient Status [ADT] Routine Ambulate [RC] QID Cardiac Monitoring [RC] Q6H Height and Weight [RC] DAILY Intake and Output [RC] QSHIFT Notify Provider Vital Signs [RC] Q12H Oxygen Therapy [RC] Q12H Peripheral IV Care [RC] Q6H Pulse Oximetry [RC] CONTINUOUS RT Aerosol Therapy [RC] ASDIRECTED RT BiPAP/CPAP [RC] ASDIRECTED Up With Assistance [RC] ASDIRECTED Up to Chair [RC] QID VTE/DVT Education [RC] Per Unit Routine Vital Signs [RC] Q2H PT Evaluation and Treatment [CONS] Routine Acetaminophen [Tylenol] 650 mg PO Q4H PRN Acetaminophen [Tylenol] 650 mg RECTAL Q4H PRN Albuterol [Proventil Neb Soln] 2.5 mg NEB Q4H PRN Docusate Sodium [Colace] 100 mg PO BID PRN LORazepam [Ativan] 0.5 mg IVPUSH Q2H PRN Magnesium Hydroxide [Milk of Magnesia] 30 ml PO Q12H PRN Ondansetron [Zofran] 4 mg IV Q4H PRN Polyethylene Glycol 3350 [MiraLAX] 17 gm PO DAILY PRN Sodium Chloride 0.9% [Saline Flush] 10 ml FLUSH ASDIRECTED PRN oxyCODONE 5 mg PO Q4H PRN Peripheral IV Insertion Adult [OM.PC] Routine 09/03/17 17:41 Blood Culture x2 Reflex Set [OM.PC] Urgent 09/03/17 17:42 CULTURE RESPIRATORY + SMEAR [RM] Stat 09/03/17 18:00 CULTURE BLOOD [BC] Stat Levofloxacin/Dextrose 5%-Water [Levaquin in D5W 750 MG/150 ML] 750 mg Premix Bag 1 bag IV Q24H 09/03/17 18:15 CULTURE BLOOD [BC] Stat 09/03/17 21:00 Albuterol/Ipratropium [DuoNeb 3.0-0.5 MG/3 ML] 3 ml NEB QIDRT Budesonide [Pulmicort] 0.5 mg NEB BIDRT 09/03/17 22:00 methylPREDNISolone Sod Succ [Solu-MEDROL] 40 mg IVPUSH Q6H 09/03/17 Dinner Regular Diet [DIET] 09/04/17 05:11 Chest 1V Frontal [CR] AM 09/04/17 10:45 Sodium Chloride 0.9% [Normal Saline] 1,000 ml IV ASDIRECTED 09/04/17 20:00 Enoxaparin [Lovenox] 40 mg SUBCUT Q24H 09/05/17 05:00 BASIC METABOLIC PANEL,BMP [CHEM] Timed BLOOD GAS ARTERIAL [BG] Timed CBC WITH AUTO DIFF [HEME] Timed MAGNESIUM [CHEM] Timed - Plan Plan:: ASSESSMENT AND PLAN ACUTE ON CHRONIC HYPOXIC AND HYPERCAPNIC RESPIRATORY FAILURE-moderately improved from admission, adequate oxygenation and improvement in hypercapnia. Continues to require use of the noninvasive positive pressure ventilation. -Blood and sputum cultures pending -IV fluids for hydration -Noninvasive positive pressure ventilation -Nebulizer therapy with albuterol, duo nebs, and Pulmicort -Levofloxacin 750 mg IV every 24 hours -Solu-Medrol 40 milligrams IV every 6 hours COPD EXACERBATION SECONDARY TO BRONCHITIS -Management as above BENIGN POSITIONAL VERTIGO -Anti-medic therapy as needed -Symptomatic care PALLIATIVE CARE-patient is adamant about not wanting aggressive interventions past what we are currently doing. She understands that she is experiencing severe respiratory compromise and current interventions may not be enough to pull her through this episode. If she becomes worse despite interventions would like to be comfortable but does not want to consider intubation or mechanical ventilation. MAINTENANCE ISSUES -DVT prophylaxis; Lovenox 40 mg subcutaneous daily -GI prophylaxis; not indicated -Bellamy catheter; not indicated -Nutrition; regular diet -Nicotine dependence; not required CODE STATUS-DNR/DNI ADMISSION STATUS-patient will be admitted to inpatient status, expect at least a 2 night hospital stay for evaluation and management of problems as outlined above. At the time of this admission I do not reasonably expected evaluation and management of this problem will require more than a 96 hour hospital stay. DISPOSITION-anticipate discharge to home after the hospital stay. PRIMARY CARE PROVIDER-
[2017-09-04] MEDS: Levofloxacin/Dextrose 5%-Water 750 MG in Premix Bag 1 BAG IV SCH (17:00)
[2017-09-04] MEDS: Enoxaparin 40 MG/0.4 ML Syringe SUBCUT SCH (21:30)
[2017-09-04] MEDS: Montelukast 10 MG Tab PO SCH (21:30)
[2017-09-05] MEDS: LORazepam 2 MG/ML MDV IVPUSH PRN ×5 (01:07→21:58)
[2017-09-05] MEDS: methylPREDNISolone Sodium Succinate 40 MG/1 ML SDV IVPUSH SCH ×3 (04:01→21:56)
[2017-09-05] MEDS: Budesonide 0.5 MG/2 ML Neb Susp NEB SCH ×2 (07:19→20:21)
[2017-09-05] MEDS: Albuterol/Ipratropium 3.0-0.5 MG/3 ML Neb Soln NEB SCH ×4 (07:19→20:08)
--- NOTE | 2017-09-05 08:33 | PCM.PN ---
- General Info Date of Service: 09/05/17 Subjective Update: Ms. Cheatham has remained stable over the past 24 hours, continues to require use of noninvasive positive pressure ventilation. Saturations dropped relatively rapidly when she is off of the respiratory support. Vital signs have been good and she has remained afebrile. Not able to provide significant information concerning current symptoms or review systems because of respiratory compromise and ongoing use of BiPAP. - Review of Systems General: Reports: Weakness. Denies: Fever, Chills - Patient Data Vitals - Most Recent: Last Vital Signs Temp 98.5 F 09/05/17 07:38 Pulse 122 H 09/05/17 07:38 Resp 26 H 09/05/17 07:38 BP 164/97 H 09/05/17 07:38 Pulse Ox 91 L 09/05/17 07:38 Weight - Most Recent: 117 lb 4.8 oz I&O - Last 24 Hours: Intake & Output 09/04/17 09/05/17 09/05/17 22:59 06:59 14:59 Intake Total 1130 718 Output Total 100 100 Balance 1030 618 Lab Results Last 24 Hours: Laboratory Results - last 24 hr 09/05/17 09/05/17 09/05/17 Range/Units 05:00 05:00 05:00 WBC 12.8 H (4.5-11.0) K/uL RBC 3.91 (3.30-5.50) M/uL Hgb 11.6 L (12.0-15.0) g/dL Hct 36.8 (36.0-48.0) % MCV 94 (80-98) fL MCH 30 (27-31) pg MCHC 32 (32-36) % Plt Count 160 (150-400) K/uL Neut % (Auto) 92 H (36-66) % Lymph % (Auto) 3 L (24-44) % Cocke % (Auto) 6 (2-6) % Eos % (Auto) 0 L (2-4) % Baso % (Auto) 0 (0-1) % Puncture Site R radial ABG pH 7.380 (7.350-7.450) ABG pCO2 46.8 H (35.0-42.0) mmHg ABG pO2 98.1 (75.0-100.0) mmHg ABG HCO3 27.1 H (22.0-26.0) mmol/L ABG Total CO2 24.7 (21.0-25.0) mmol/L ABG O2 Saturation 97.9 (95.0-98.0) % ABG O2 Content 15.9 (15.0-23.0) %vol ABG Base Excess 2.0 mm/L ABG Hemoglobin 11.7 L (12.0-16.0) g/dL ABG Oxyhemoglobin 95.9 % ABG Carboxyhemoglobin 1.2 (0.0-1.6) % ABG Methemoglobin 0.8 % Damien Test Passed O2 Delivery Device Bipap Oxygen Flow Rate L Sodium 140 (140-148) mmol/L Potassium 4.4 (3.6-5.2) mmol/L Chloride 105 (100-108) mmol/L Carbon Dioxide 28 (21-32) mmol/L Anion Gap 6.6 (5.0-14.0) mmol/L BUN 23 H (7-18) mg/dL Creatinine 0.5 L (0.6-1.0) mg/dL Est Cr Clr Drug Dosing 69.83 mL/min Estimated GFR (MDRD) > 60 (>60) Glucose 128 H (74-106) mg/dL Calcium 8.7 (8.5-10.1) mg/dL Magnesium 2.2 (1.8-2.4) mg/dL Toney Results Last 24 Hours: Microbiology 09/03/17 18:15 Aerobic Blood Culture - Preliminary Blood - Venous - Lab Draw NO GROWTH AFTER 1 DAY Anaerobic Blood Culture - Preliminary NO GROWTH AFTER 1 DAY 09/03/17 18:00 Aerobic Blood Culture - Preliminary Blood - Venous NO GROWTH AFTER 1 DAY Anaerobic Blood Culture - Preliminary NO GROWTH AFTER 1 DAY Med Orders - Current: Current Medications Acetaminophen (Tylenol) 650 mg PO Q4H PRN PRN Reason: Pain (Mild 1-3)/fever Acetaminophen (Tylenol) 650 mg RECTAL Q4H PRN PRN Reason: Mild pain/fever Albuterol (Proventil Neb Soln) 2.5 mg NEB Q4H PRN PRN Reason: Shortness Of Breath/wheezing Last Admin: 09/04/17 01:22 Dose: 2.5 mg Albuterol/Ipratropium (Duoneb 3.0-0.5 Mg/3 Ml) 3 ml NEB QIDRT [facility] Last Admin: 09/05/17 07:19 Dose: 3 ml Aspirin (Halfprin) 81 mg PO DAILY [facility] Last Admin: 09/04/17 08:33 Dose: 81 mg Budesonide (Pulmicort) 0.5 mg NEB BIDRT [facility] Last Admin: 09/05/17 07:19 Dose: 0.5 mg Docusate Sodium (Colace) 100 mg PO BID PRN PRN Reason: Constipation Enoxaparin Sodium (Lovenox) 40 mg SUBCUT Q24H [facility] Last Admin: 09/04/17 21:30 Dose: 40 mg Levofloxacin/Dextrose 750 mg/ (Premix) 150 mls @ 100 mls/hr IV Q24H [facility] Last Admin: 09/04/17 17:00 Dose: 100 mls/hr Sodium Chloride (Normal Saline) 1,000 mls @ 50 mls/hr IV ASDIRECTED [facility] Last Admin: 09/04/17 21:30 Dose: 50 mls/hr Lorazepam (Ativan) 0.5 mg IVPUSH Q2H PRN PRN Reason: Anxiety Last Admin: 09/05/17 06:26 Dose: 0.5 mg Magnesium Hydroxide (Milk Of Magnesia) 30 ml PO Q12H PRN PRN Reason: Constipation Methylprednisolone Sodium Succinate (Solu-Medrol) 40 mg IVPUSH Q6H [facility] Last Admin: 09/05/17 04:01 Dose: 40 mg Montelukast Sodium (Singulair) 10 mg PO BEDTIME [facility] Last Admin: 09/04/17 21:30 Dose: 10 mg Ondansetron HCl (Zofran) 4 mg IV Q4H PRN PRN Reason: Nausea/Vomiting Oxycodone HCl (Oxycodone) 5 mg PO Q4H PRN PRN Reason: Pain (moderate 4-6) Last Admin: 09/04/17 01:06 Dose: 5 mg Polyethylene Glycol (Miralax) 17 gm PO DAILY PRN PRN Reason: Constipation Sertraline HCl (Zoloft) 100 mg PO DAILY [facility] Last Admin: 09/04/17 08:33 Dose: 100 mg Sodium Chloride (Saline Flush) 10 ml FLUSH ASDIRECTED PRN PRN Reason: Keep Vein Open Discontinued Medications Albuterol/Ipratropium (Duoneb 3.0-0.5 Mg/3 Ml) 3 ml NEB ONETIME ONE Stop: 09/03/17 16:06 Last Admin: 09/03/17 16:40 Dose: 3 ml Albuterol/Ipratropium (Duoneb 3.0-0.5 Mg/3 Ml) Confirm Administered Dose 3 ml .ROUTE .STK-MED ONE Stop: 09/03/17 16:08 Last Admin: 09/04/17 16:52 Dose: Not Given Enoxaparin Sodium (Lovenox) 40 mg SUBCUT DAILY [facility] Last Admin: 09/03/17 19:52 Dose: 40 mg Sodium Chloride (Normal Saline) 1,000 mls @ 75 mls/hr IV ASDIRECTED [facility] Last Admin: 09/04/17 06:10 Dose: 75 mls/hr Lorazepam (Ativan) 0.5 mg IVPUSH ONETIME ONE Stop: 09/03/17 16:29 Last Admin: 09/03/17 16:40 Dose: 0.5 mg Lorazepam (Ativan) 0.5 mg IVPUSH ONETIME ONE Stop: 09/03/17 17:20 Last Admin: 09/03/17 17:35 Dose: 0.5 mg Methylprednisolone Sodium Succinate (Solu-Medrol) 125 mg IVPUSH ONETIME ONE Stop: 09/03/17 15:59 Last Admin: 09/03/17 16:40 Dose: 125 mg - Exam Quality Assessment: Supplemental Oxygen (Noninvasive positive pressure ventilation), Urine Catheter, DVT Prophylaxis General: Cooperative, Mild Distress Lungs: Rhonchi, Wheezing. No: Decreased Breath Sounds, Crackles, Rales, Rub, Stridor Cardiovascular: Regular Rhythm, Tachycardia. No: Irregular Rhythm GI/Abdominal Exam: Soft, Non-Tender, No Organomegaly, No Distention Extremities: Non-Tender, No Pedal Edema Skin: Warm, Dry - Problem List Review Problem List Initiated/Reviewed/Updated: Yes - My Orders Last 24 Hours: My Active Orders 09/06/17 05:00 BASIC METABOLIC PANEL,BMP [CHEM] Timed CBC WITH AUTO DIFF [HEME] Timed 09/04/17 10:45 Sodium Chloride 0.9% [Normal Saline] 1,000 ml IV ASDIRECTED 09/04/17 20:00 Enoxaparin [Lovenox] 40 mg SUBCUT Q24H - Plan Plan:: ASSESSMENT AND PLAN ACUTE ON CHRONIC HYPOXIC AND HYPERCAPNIC RESPIRATORY stable but not significantly improved over the past 24 hours, continues to require use of noninvasive positive pressure ventilation -Blood and sputum cultures pending -IV fluids for hydration, oral intake remains poor -Noninvasive positive pressure ventilation -Nebulizer therapy with albuterol, duo nebs, and Pulmicort -Levofloxacin 750 mg IV every 24 hours -Solu-Medrol 40 milligrams IV every 12 hours COPD EXACERBATION SECONDARY TO BRONCHITIS -Management as above BENIGN POSITIONAL VERTIGO -Anti-medic therapy as needed -Symptomatic care PALLIATIVE CARE-patient is adamant about not wanting aggressive interventions past what we are currently doing. She understands that she is experiencing severe respiratory compromise and current interventions may not be enough to pull her through this episode. If she becomes worse despite interventions would like to be comfortable but does not want to consider intubation or mechanical ventilation. MAINTENANCE ISSUES -DVT prophylaxis; Lovenox 40 mg subcutaneous daily -GI prophylaxis; not indicated -Bellamy catheter; not indicated -Nutrition; regular diet -Nicotine dependence; not required CODE STATUS-DNR/DNI ADMISSION STATUS-patient will be admitted to inpatient status, expect at least a 2 night hospital stay for evaluation and management of problems as outlined above. At the time of this admission I do not reasonably expected evaluation and management of this problem will require more than a 96 hour hospital stay. DISPOSITION-anticipate discharge to home after the hospital stay. PRIMARY CARE PROVIDER-
[2017-09-05] MEDS: Aspirin 81 MG Tab.EC PO SCH (10:27)
[2017-09-05] MEDS: Sertraline 50 MG Tab PO SCH (10:27)
[2017-09-05] MEDS: oxyCODONE 5 MG Tab PO PRN ×3 (11:15→20:24)
[2017-09-05] MEDS: Levofloxacin/Dextrose 5%-Water 750 MG in Premix Bag 1 BAG IV SCH (18:00)
[2017-09-05] MEDS: Enoxaparin 40 MG/0.4 ML Syringe SUBCUT SCH (19:36)
[2017-09-05] MEDS: Sodium Chloride 0.9% 1,000 ML IV SCH (19:51)
[2017-09-05] MEDS: Montelukast 10 MG Tab PO SCH (20:09)
[2017-09-06] MEDS: LORazepam 2 MG/ML MDV IVPUSH PRN ×4 (06:01→23:46)
[2017-09-06] MEDS: Albuterol/Ipratropium 3.0-0.5 MG/3 ML Neb Soln NEB SCH ×4 (06:31→20:15)
[2017-09-06] MEDS: Budesonide 0.5 MG/2 ML Neb Susp NEB SCH ×2 (07:09→20:04)
--- NOTE | 2017-09-06 09:39 | PCM.PN ---
- General Info Date of Service: 09/06/17 - Review of Systems General: Reports: Weakness Pulmonary: Reports: Shortness of Breath. Denies: Cough Systems Review Comment:: No acute events overnight. Vital signs have been stable with mild tachycardia persisting. She has not had any fevers. She does continue to require nearly constant use of noninvasive ventilation. She is able to tolerate only short periods of time without it and this is stable since hospital admission. No complaints of chest pain or abdominal pain. Volume status appears appropriate at this time. She is very weak. Significant anxiety that does seem better after use of lorazepam. - Patient Data Vitals - Most Recent: Last Vital Signs Temp 37.1 C 09/06/17 07:49 Pulse 123 H 09/06/17 07:49 Resp 30 H 09/06/17 07:49 BP 156/92 H 09/06/17 07:49 Pulse Ox 97 09/06/17 07:49 Weight - Most Recent: 55.792 kg I&O - Last 24 Hours: Intake & Output 09/05/17 09/06/17 09/06/17 22:59 06:59 14:59 Intake Total 471 700 Balance 471 700 Lab Results Last 24 Hours: Laboratory Results - last 24 hr 09/06/17 09/06/17 Range/Units 05:50 05:50 WBC 12.1 H (4.5-11.0) K/uL RBC 3.96 (3.30-5.50) M/uL Hgb 11.7 L (12.0-15.0) g/dL Hct 37.8 (36.0-48.0) % MCV 96 (80-98) fL MCH 30 (27-31) pg MCHC 31 L (32-36) % Plt Count 174 (150-400) K/uL Neut % (Auto) 91 H (36-66) % Lymph % (Auto) 3 L (24-44) % [place]more % (Auto) 6 (2-6) % Eos % (Auto) 0 L (2-4) % Baso % (Auto) 0 (0-1) % Sodium 142 (140-148) mmol/L Potassium 4.6 (3.6-5.2) mmol/L Chloride 106 (100-108) mmol/L Carbon Dioxide 34 H (21-32) mmol/L Anion Gap 6.6 (5.0-14.0) mmol/L BUN 23 H (7-18) mg/dL Creatinine 0.6 (0.6-1.0) mg/dL Est Cr Clr Drug Dosing 58.19 mL/min Estimated GFR (MDRD) > 60 (>60) Glucose 113 H (74-106) mg/dL Calcium 8.7 (8.5-10.1) mg/dL Troponin I 0.126 H* (0.000-0.056) ng/mL Toney Results Last 24 Hours: Microbiology 09/03/17 18:15 Aerobic Blood Culture - Preliminary Blood - Venous - Lab Draw NO GROWTH AFTER 2 DAYS Anaerobic Blood Culture - Preliminary NO GROWTH AFTER 2 DAYS 09/03/17 18:00 Aerobic Blood Culture - Preliminary Blood - Venous NO GROWTH AFTER 2 DAYS Anaerobic Blood Culture - Preliminary NO GROWTH AFTER 2 DAYS 09/05/17 16:23 Influenza Type A Antigen Screen - Final Nasopharyngeal Swab - Nare, Left NEGATIVE INFLUENZA A VIRUS AG Influenza Type B Antigen Screen - Final NEGATIVE INFLUENZA B VIRUS AG Med Orders - Current: Current Medications Acetaminophen (Tylenol) 650 mg PO Q4H PRN PRN Reason: Pain (Mild 1-3)/fever Acetaminophen (Tylenol) 650 mg RECTAL Q4H PRN PRN Reason: Mild pain/fever Albuterol (Proventil Neb Soln) 2.5 mg NEB Q4H PRN PRN Reason: Shortness Of Breath/wheezing Last Admin: 09/04/17 01:22 Dose: 2.5 mg Albuterol/Ipratropium (Duoneb 3.0-0.5 Mg/3 Ml) 3 ml NEB QIDRT [facility] Last Admin: 09/06/17 06:31 Dose: 3 ml Aspirin (Halfprin) 81 mg PO DAILY [facility] Last Admin: 09/05/17 10:27 Dose: 81 mg Budesonide (Pulmicort) 0.5 mg NEB BIDRT [facility] Last Admin: 09/06/17 07:09 Dose: 0.5 mg Docusate Sodium (Colace) 100 mg PO BID PRN PRN Reason: Constipation Enoxaparin Sodium (Lovenox) 40 mg SUBCUT Q24H [facility] Last Admin: 09/05/17 19:36 Dose: 40 mg Levofloxacin/Dextrose 750 mg/ (Premix) 150 mls @ 100 mls/hr IV Q24H [facility] Last Admin: 09/05/17 18:00 Dose: 100 mls/hr Sodium Chloride (Normal Saline) 1,000 mls @ 50 mls/hr IV ASDIRECTED [facility] Last Admin: 09/05/17 19:51 Dose: 50 mls/hr Ceftriaxone Sodium 1 gm/ (Sodium Chloride) 50 mls @ 100 mls/hr IV Q24H [facility] Lorazepam (Ativan) 0.5 mg IVPUSH Q2H PRN PRN Reason: Anxiety Last Admin: 09/06/17 06:01 Dose: 0.5 mg Magnesium Hydroxide (Milk Of Magnesia) 30 ml PO Q12H PRN PRN Reason: Constipation Methylprednisolone Sodium Succinate (Solu-Medrol) 40 mg IVPUSH Q12H [facility] Last Admin: 09/05/17 21:56 Dose: 40 mg Montelukast Sodium (Singulair) 10 mg PO BEDTIME [facility] Last Admin: 09/05/17 20:09 Dose: 10 mg Ondansetron HCl (Zofran) 4 mg IV Q4H PRN PRN Reason: Nausea/Vomiting Oxycodone HCl (Oxycodone) 5 mg PO Q4H PRN PRN Reason: Pain (moderate 4-6) Last Admin: 09/05/17 20:24 Dose: 5 mg Polyethylene Glycol (Miralax) 17 gm PO DAILY PRN PRN Reason: Constipation Sertraline HCl (Zoloft) 100 mg PO DAILY [facility] Last Admin: 09/05/17 10:27 Dose: 100 mg Sodium Chloride (Saline Flush) 10 ml FLUSH ASDIRECTED PRN PRN Reason: Keep Vein Open Discontinued Medications Albuterol/Ipratropium (Duoneb 3.0-0.5 Mg/3 Ml) 3 ml NEB ONETIME ONE Stop: 09/03/17 16:06 Last Admin: 09/03/17 16:40 Dose: 3 ml Albuterol/Ipratropium (Duoneb 3.0-0.5 Mg/3 Ml) Confirm Administered Dose 3 ml .ROUTE .STK-MED ONE Stop: 09/03/17 16:08 Last Admin: 09/04/17 16:52 Dose: Not Given Enoxaparin Sodium (Lovenox) 40 mg SUBCUT DAILY [facility] Last Admin: 09/03/17 19:52 Dose: 40 mg Sodium Chloride (Normal Saline) 1,000 mls @ 75 mls/hr IV ASDIRECTED [facility] Last Admin: 09/04/17 06:10 Dose: 75 mls/hr Lorazepam (Ativan) 0.5 mg IVPUSH ONETIME ONE Stop: 09/03/17 16:29 Last Admin: 09/03/17 16:40 Dose: 0.5 mg Lorazepam (Ativan) 0.5 mg IVPUSH ONETIME ONE Stop: 09/03/17 17:20 Last Admin: 09/03/17 17:35 Dose: 0.5 mg Methylprednisolone Sodium Succinate (Solu-Medrol) 125 mg IVPUSH ONETIME ONE Stop: 09/03/17 15:59 Last Admin: 09/03/17 16:40 Dose: 125 mg Methylprednisolone Sodium Succinate (Solu-Medrol) 40 mg IVPUSH Q6H [facility] Last Admin: 09/05/17 04:01 Dose: 40 mg - Exam Quality Assessment: Supplemental Oxygen General: Alert, Cooperative, No Acute Distress Neck: Supple Lungs: Other (poor exp air movement ). No: Normal Respiratory Effort ( increased work of breathing), Crackles, Wheezing Cardiovascular: Regular Rhythm, Tachycardia GI/Abdominal Exam: Normal Bowel Sounds, Soft, No Distention Extremities: No Pedal Edema. No: Increased Warmth Skin: Warm, Dry Psy/Mental Status: Alert, Normal Affect - Problem List Review Problem List Initiated/Reviewed/Updated: Yes - My Orders Last 24 Hours: My Active Orders 09/06/17 09:34 D Dimer [D-DIMER QUANTITATIVE] [COAG] Routine 09/06/17 09:45 cefTRIAXone [Rocephin] 1 gm Sodium Chloride 0.9% [Normal Saline] 50 ml IV Q24H 09/07/17 05:00 BASIC METABOLIC PANEL,BMP [CHEM] Timed CBC W/O DIFF,HEMOGRAM [HEME] Timed (1) - Plan Plan:: ASSESSMENT AND PLAN ACUTE ON CHRONIC HYPOXIC AND HYPERCAPNIC RESPIRATORY - stable but not making much improvement. Still significant impairment of expiratory airflow. Still completely dependent on noninvasive ventilation. No fevers. D-dimer only very mildly elevated from normal. -Blood and sputum cultures pending -IV fluids for hydration, oral intake remains poor -Noninvasive positive pressure ventilation -Nebulizer therapy with albuterol, duo nebs, and Pulmicort -Continue levofloxacin, and ceftriaxone -Solu-Medrol 40 milligrams IV every 12 hours -CT scan tomorrow if not making progress COPD EXACERBATION SECONDARY TO BRONCHITIS - still significant impairment and expiratory airflow. -Management as above BENIGN POSITIONAL VERTIGO -no symptoms at this time -Anti-emetic therapy as needed -Symptomatic care PALLIATIVE CARE - patient is adamant about not wanting aggressive interventions past what we are currently doing. She understands that she is experiencing severe respiratory compromise and current interventions may not be enough to pull her through this episode. If she becomes worse despite interventions would like to be comfortable but does not want to consider intubation or mechanical ventilation. MAINTENANCE ISSUES -DVT prophylaxis; Lovenox 40 mg subcutaneous daily -GI prophylaxis; not indicated -Bellamy catheter; not indicated -Nutrition; regular diet DISPOSITION - [facility] hospital stay. She will need physical therapy once respiratory status stabilizes. Federico Ayon M.D.
[2017-09-06] MEDS: cefTRIAXone 1 GM in Sodium Chloride 0.9% 50 ML IV SCH (09:56)
[2017-09-06] MEDS: oxyCODONE 5 MG Tab PO PRN ×2 (10:31→15:38)
[2017-09-06] MEDS: Aspirin 81 MG Tab.EC PO SCH (10:31)
[2017-09-06] MEDS: Sertraline 50 MG Tab PO SCH (10:31)
[2017-09-06] MEDS: methylPREDNISolone Sodium Succinate 40 MG/1 ML SDV IVPUSH SCH ×2 (10:31→21:12)
[2017-09-06] MEDS: Sodium Chloride 0.9% 1,000 ML IV SCH (16:47)
[2017-09-06] MEDS: Levofloxacin/Dextrose 5%-Water 750 MG in Premix Bag 1 BAG IV SCH (17:30)
[2017-09-06] MEDS: Enoxaparin 40 MG/0.4 ML Syringe SUBCUT SCH (20:14)
[2017-09-06] MEDS: Montelukast 10 MG Tab PO SCH (20:14)
[2017-09-06] MEDS: Morphine 4 MG/ML Syringe IVPUSH PRN (21:09)
[2017-09-07] MEDS: Morphine 4 MG/ML Syringe IVPUSH PRN ×4 (04:13→23:05)
[2017-09-07] MEDS: Albuterol 0.083% 2.5 MG/3 ML Neb Soln NEB PRN (04:16)
[2017-09-07] MEDS: Albuterol/Ipratropium 3.0-0.5 MG/3 ML Neb Soln NEB SCH ×4 (07:12→20:52)
[2017-09-07] MEDS: Budesonide 0.5 MG/2 ML Neb Susp NEB SCH ×2 (07:12→20:52)
--- NOTE | 2017-09-07 08:57 | CR ---
Chest 1V Frontal INDICATION: Follow-up after hydration COMPARISON: 09/03/2017 FINDINGS: Single view of the chest. Chronic increased lung markings left lung, stable. Right lung h yperinflated and clear. No change in heart size.
--- NOTE | 2017-09-07 08:58 | CR ---
Chest 1V Frontal INDICATION: short of breath COMPARISON: 08/28/2016 and other prior exams FINDINGS: Single view of the chest. Chronic increased lung markings left lung, stable. Right lung h yperinflated and clear. No change in heart size.
--- NOTE | 2017-09-07 09:14 | PCM.PN ---
- General Info Date of Service: 09/07/17 Functional Status: Reports: Pain Controlled - Review of Systems General: Reports: Weakness Pulmonary: Reports: Shortness of Breath, Cough Systems Review Comment:: no acute events overnight. Still significant difficulties with anxiety though this seems a little better after she was able to tolerate a period of time off of the noninvasive ventilation. Currently off of the noninvasive ventilation but does feel an increased work of breathing. Respiratory rate around 20 this morning. Moderate hypertension has been present but she does not have symptoms of headache or blurry vision at this time. She is very weak. Tolerating current antibiotics. Not having fevers. - Patient Data Vitals - Most Recent: Last Vital Signs Temp 36.3 C 09/07/17 07:37 Pulse 102 H 09/07/17 07:37 Resp 19 09/07/17 07:37 BP 192/94 H 09/07/17 07:37 Pulse Ox 97 09/07/17 07:37 Weight - Most Recent: 55.157 kg I&O - Last 24 Hours: Intake & Output 09/06/17 09/07/17 09/07/17 22:59 06:59 14:59 Intake Total 603 704 Output Total 200 Balance 403 704 Lab Results Last 24 Hours: Laboratory Results - last 24 hr 09/06/17 09/07/17 09/07/17 Range/Units 05:45 04:45 04:45 WBC 10.6 (4.5-11.0) K/uL RBC 4.25 (3.30-5.50) M/uL Hgb 12.5 (12.0-15.0) g/dL Hct 40.6 (36.0-48.0) % MCV 96 (80-98) fL MCH 29 (27-31) pg MCHC 31 L (32-36) % Plt Count 203 (150-400) K/uL D-Dimer, Quantitative 499 H (0.0-400.0) ng/mL Sodium 141 (140-148) mmol/L Potassium 4.5 (3.6-5.2) mmol/L Chloride 106 (100-108) mmol/L Carbon Dioxide 34 H (21-32) mmol/L Anion Gap 5.5 (5.0-14.0) mmol/L BUN 21 H (7-18) mg/dL Creatinine 0.5 L (0.6-1.0) mg/dL Est Cr Clr Drug Dosing 69.83 mL/min Estimated GFR (MDRD) > 60 (>60) Glucose 112 H (74-106) mg/dL Calcium 8.6 (8.5-10.1) mg/dL Toney Results Last 24 Hours: Microbiology 09/03/17 18:15 Aerobic Blood Culture - Preliminary Blood - Venous - Lab Draw NO GROWTH AFTER 3 DAYS Anaerobic Blood Culture - Preliminary NO GROWTH AFTER 3 DAYS 09/03/17 18:00 Aerobic Blood Culture - Preliminary Blood - Venous NO GROWTH AFTER 3 DAYS Anaerobic Blood Culture - Preliminary NO GROWTH AFTER 3 DAYS Med Orders - Current: Current Medications Acetaminophen (Tylenol) 650 mg PO Q4H PRN PRN Reason: Pain (Mild 1-3)/fever Acetaminophen (Tylenol) 650 mg RECTAL Q4H PRN PRN Reason: Mild pain/fever Albuterol (Proventil Neb Soln) 2.5 mg NEB Q4H PRN PRN Reason: Shortness Of Breath/wheezing Last Admin: 09/07/17 04:16 Dose: 2.5 mg Albuterol/Ipratropium (Duoneb 3.0-0.5 Mg/3 Ml) 3 ml NEB QIDRT [facility] Last Admin: 09/07/17 07:12 Dose: 3 ml Aspirin (Halfprin) 81 mg PO DAILY [facility] Last Admin: 09/06/17 10:31 Dose: 81 mg Budesonide (Pulmicort) 0.5 mg NEB BIDRT [facility] Last Admin: 09/07/17 07:12 Dose: 0.5 mg Docusate Sodium (Colace) 100 mg PO BID PRN PRN Reason: Constipation Enoxaparin Sodium (Lovenox) 40 mg SUBCUT Q24H [facility] Last Admin: 09/06/17 20:14 Dose: 40 mg Levofloxacin/Dextrose 750 mg/ (Premix) 150 mls @ 100 mls/hr IV Q24H [facility] Last Admin: 09/06/17 17:30 Dose: 100 mls/hr Ceftriaxone Sodium 1 gm/ (Sodium Chloride) 50 mls @ 100 mls/hr IV Q24H [facility] Last Admin: 09/06/17 09:56 Dose: 100 mls/hr Potassium Chloride/Dextrose/Sod Cl (D5 1/2 Ns W/ 20 Meq/L Kcl) 1,000 mls @ 50 mls/hr IV ASDIRECTED [facility] Lorazepam (Ativan) 0.5 - 1 mg IVPUSH Q2H PRN PRN Reason: Anxiety Last Admin: 09/06/17 23:46 Dose: 1 mg Magnesium Hydroxide (Milk Of Magnesia) 30 ml PO Q12H PRN PRN Reason: Constipation Methylprednisolone Sodium Succinate (Solu-Medrol) 40 mg IVPUSH Q12H [facility] Last Admin: 09/06/17 21:12 Dose: 40 mg Montelukast Sodium (Singulair) 10 mg PO BEDTIME [facility] Last Admin: 09/06/17 20:14 Dose: 10 mg Morphine Sulfate (Morphine) 4 mg IVPUSH Q2H PRN PRN Reason: Shortness of Breath Last Admin: 09/07/17 04:13 Dose: 4 mg Ondansetron HCl (Zofran) 4 mg IV Q4H PRN PRN Reason: Nausea/Vomiting Oxycodone HCl (Oxycodone) 5 mg PO Q4H PRN PRN Reason: Pain (moderate 4-6) Last Admin: 09/06/17 15:38 Dose: 5 mg Polyethylene Glycol (Miralax) 17 gm PO DAILY PRN PRN Reason: Constipation Sertraline HCl (Zoloft) 100 mg PO DAILY [facility] Last Admin: 09/06/17 10:31 Dose: 100 mg Sodium Chloride (Saline Flush) 10 ml FLUSH ASDIRECTED PRN PRN Reason: Keep Vein Open Discontinued Medications Albuterol/Ipratropium (Duoneb 3.0-0.5 Mg/3 Ml) 3 ml NEB ONETIME ONE Stop: 09/03/17 16:06 Last Admin: 09/03/17 16:40 Dose: 3 ml Albuterol/Ipratropium (Duoneb 3.0-0.5 Mg/3 Ml) Confirm Administered Dose 3 ml .ROUTE .STK-MED ONE Stop: 09/03/17 16:08 Last Admin: 09/04/17 16:52 Dose: Not Given Enoxaparin Sodium (Lovenox) 40 mg SUBCUT DAILY [facility] Last Admin: 09/03/17 19:52 Dose: 40 mg Sodium Chloride (Normal Saline) 1,000 mls @ 75 mls/hr IV ASDIRECTED [facility] Last Admin: 09/04/17 06:10 Dose: 75 mls/hr Sodium Chloride (Normal Saline) 1,000 mls @ 50 mls/hr IV ASDIRECTED [facility] Last Admin: 09/06/17 16:47 Dose: 50 mls/hr Lorazepam (Ativan) 0.5 mg IVPUSH ONETIME ONE Stop: 09/03/17 16:29 Last Admin: 09/03/17 16:40 Dose: 0.5 mg Lorazepam (Ativan) 0.5 mg IVPUSH ONETIME ONE Stop: 09/03/17 17:20 Last Admin: 09/03/17 17:35 Dose: 0.5 mg Lorazepam (Ativan) 0.5 mg IVPUSH Q2H PRN PRN Reason: Anxiety Last Admin: 09/06/17 20:02 Dose: 0.5 mg Methylprednisolone Sodium Succinate (Solu-Medrol) 125 mg IVPUSH ONETIME ONE Stop: 09/03/17 15:59 Last Admin: 09/03/17 16:40 Dose: 125 mg Methylprednisolone Sodium Succinate (Solu-Medrol) 40 mg IVPUSH Q6H [facility] Last Admin: 09/05/17 04:01 Dose: 40 mg - Exam Quality Assessment: Supplemental Oxygen General: Alert, Cooperative, Mild Distress, Lethargic Lungs: Normal Respiratory Effort, Decreased Breath Sounds (both bases), Other ( prolonged exp phase but better today ). No: Wheezing Cardiovascular: Regular Rhythm, Tachycardia GI/Abdominal Exam: Normal Bowel Sounds, Soft, No Distention Extremities: No Pedal Edema Skin: Warm, Intact Psy/Mental Status: Alert, Anxious - Problem List Review Problem List Initiated/Reviewed/Updated: Yes - My Orders Last 24 Hours: My Active Orders 09/06/17 10:00 cefTRIAXone [Rocephin] 1 gm Sodium Chloride 0.9% [Normal Saline] 50 ml IV Q24H 09/06/17 20:35 Morphine 4 mg IVPUSH Q2H PRN 09/06/17 20:36 LORazepam [Ativan] 0.5 - 1 mg IVPUSH Q2H PRN 09/07/17 09:15 D5 1/2 NS w/ 20 mEq/L KCl 1,000 ml IV ASDIRECTED 09/08/17 05:00 BASIC METABOLIC PANEL,BMP [CHEM] Timed CBC W/O DIFF,HEMOGRAM [HEME] Timed (1) - Plan Plan:: ASSESSMENT AND PLAN ACUTE ON CHRONIC HYPOXIC AND HYPERCAPNIC RESPIRATORY - seems a little better today and she was able to tolerate proximally 12 hours off the noninvasive ventilation. Still feels very short of breath and still dealing with a fair amount of anxiety. Cultures have been negative so far. -continue gentle IV fluids -Follow-up cultures -Noninvasive positive pressure ventilation as needed -Nebulizer therapy with albuterol, duo nebs, and Pulmicort -Continue levofloxacin and ceftriaxone -Solu-Medrol 40 milligrams IV every 12 hours, transition to prednisone tomorrow -CT scan tomorrow if not making progress or declines COPD EXACERBATION SECONDARY TO BRONCHITIS - improved airflow today. -Management as above BENIGN POSITIONAL VERTIGO -no symptoms at this time -Anti-emetic therapy as needed -Symptomatic care PALLIATIVE CARE - patient is adamant about not wanting aggressive interventions past what we are currently doing. She understands that she is experiencing severe respiratory compromise and current interventions may not be enough to pull her through this episode. If she becomes worse despite interventions would like to be comfortable but does not want to consider intubation or mechanical ventilation. MAINTENANCE ISSUES -DVT prophylaxis; Lovenox 40 mg subcutaneous daily -GI prophylaxis; not indicated -Bellamy catheter; not indicated -Nutrition; regular diet DISPOSITION - anticipate discharge to care home after the hospital stay. She will need physical therapy once respiratory status stabilizes. Federico Ayon M.D.
[2017-09-07] MEDS: methylPREDNISolone Sodium Succinate 40 MG/1 ML SDV IVPUSH SCH ×2 (09:40→21:00)
[2017-09-07] MEDS: Sertraline 50 MG Tab PO SCH (09:40)
[2017-09-07] MEDS: Aspirin 81 MG Tab.EC PO SCH (09:40)
[2017-09-07] MEDS: cefTRIAXone 1 GM in Sodium Chloride 0.9% 50 ML IV SCH (09:46)
[2017-09-07] MEDS: D5 1/2 NS w/ 20 mEq/L KCl 1,000 ML IV SCH (11:17)
[2017-09-07] MEDS: Enoxaparin 40 MG/0.4 ML Syringe SUBCUT SCH (19:45)
[2017-09-07] MEDS: Levofloxacin/Dextrose 5%-Water 750 MG in Premix Bag 1 BAG IV SCH (19:45)
[2017-09-07] MEDS: Montelukast 10 MG Tab PO SCH (20:52)
[2017-09-08] MEDS: LORazepam 2 MG/ML MDV IVPUSH PRN (02:02)
[2017-09-08] MEDS: Albuterol/Ipratropium 3.0-0.5 MG/3 ML Neb Soln NEB SCH ×4 (07:05→20:58)
[2017-09-08] MEDS: Budesonide 0.5 MG/2 ML Neb Susp NEB SCH ×2 (07:05→20:58)
[2017-09-08] MEDS: Aspirin 81 MG Tab.EC PO SCH (08:07)
[2017-09-08] MEDS: Sertraline 50 MG Tab PO SCH (08:07)
--- NOTE | 2017-09-08 09:28 | PCM.PN ---
- General Info Date of Service: 09/08/17 Functional Status: Reports: Pain Controlled - Review of Systems General: Reports: Weakness Pulmonary: Reports: Shortness of Breath, Cough Systems Review Comment:: no acute events overnight. Still requiring a fair amount of support from the noninvasive ventilation. She has not had any fevers. Seems a little more alert today. She has been telling the nurses that she's ready to go and meet Kam. Still significant airflow impairment. No complaints of abdominal pain or chest pain today. - Patient Data Vitals - Most Recent: Last Vital Signs Temp 36.7 C 09/08/17 09:00 Pulse 108 H 09/08/17 09:00 Resp 20 09/08/17 09:00 BP 146/87 H 09/08/17 09:00 Pulse Ox 97 09/08/17 09:00 Weight - Most Recent: 54.794 kg I&O - Last 24 Hours: Intake & Output 09/07/17 09/08/17 09/08/17 22:59 06:59 14:59 Intake Total 897 542 Balance 897 542 Lab Results Last 24 Hours: Laboratory Results - last 24 hr 09/08/17 09/08/17 Range/Units 05:47 05:47 WBC 10.3 (4.5-11.0) K/uL RBC 4.29 (3.30-5.50) M/uL Hgb 12.8 (12.0-15.0) g/dL Hct 41.2 (36.0-48.0) % MCV 96 (80-98) fL MCH 30 (27-31) pg MCHC 31 L (32-36) % Plt Count 211 (150-400) K/uL Sodium 142 (140-148) mmol/L Potassium 5.0 (3.6-5.2) mmol/L Chloride 104 (100-108) mmol/L Carbon Dioxide 34 H (21-32) mmol/L Anion Gap 9.0 (5.0-14.0) mmol/L BUN 20 H (7-18) mg/dL Creatinine 0.5 L (0.6-1.0) mg/dL Est Cr Clr Drug Dosing 69.83 mL/min Estimated GFR (MDRD) > 60 (>60) Glucose 143 H (74-106) mg/dL Calcium 8.6 (8.5-10.1) mg/dL Toney Results Last 24 Hours: Microbiology 09/03/17 18:15 Aerobic Blood Culture - Preliminary Blood - Venous - Lab Draw NO GROWTH AFTER 4 DAYS Anaerobic Blood Culture - Preliminary NO GROWTH AFTER 4 DAYS 09/03/17 18:00 Aerobic Blood Culture - Preliminary Blood - Venous NO GROWTH AFTER 4 DAYS Anaerobic Blood Culture - Preliminary NO GROWTH AFTER 4 DAYS Med Orders - Current: Current Medications Acetaminophen (Tylenol) 650 mg PO Q4H PRN PRN Reason: Pain (Mild 1-3)/fever Acetaminophen (Tylenol) 650 mg RECTAL Q4H PRN PRN Reason: Mild pain/fever Albuterol (Proventil Neb Soln) 2.5 mg NEB Q4H PRN PRN Reason: Shortness Of Breath/wheezing Last Admin: 09/07/17 04:16 Dose: 2.5 mg Albuterol/Ipratropium (Duoneb 3.0-0.5 Mg/3 Ml) 3 ml NEB QIDRT [facility] Last Admin: 09/08/17 07:05 Dose: 3 ml Aspirin (Halfprin) 81 mg PO DAILY [facility] Last Admin: 09/08/17 08:07 Dose: 81 mg Budesonide (Pulmicort) 0.5 mg NEB BIDRT [facility] Last Admin: 09/08/17 07:05 Dose: 0.5 mg Docusate Sodium (Colace) 100 mg PO BID PRN PRN Reason: Constipation Enoxaparin Sodium (Lovenox) 40 mg SUBCUT Q24H [facility] Last Admin: 09/07/17 19:45 Dose: 40 mg Ceftriaxone Sodium 1 gm/ (Sodium Chloride) 50 mls @ 100 mls/hr IV Q24H [facility] Last Admin: 09/07/17 09:46 Dose: 100 mls/hr Potassium Chloride/Dextrose/Sod Cl (D5 1/2 Ns W/ 20 Meq/L Kcl) 1,000 mls @ 50 mls/hr IV ASDIRECTED [facility] Last Admin: 09/07/17 11:17 Dose: 50 mls/hr Doxycycline Hyclate 100 mg/ (Sodium Chloride) 100 mls @ 100 mls/hr IV Q12HR [facility] Magnesium Sulfate 2 gm/ Premix 50 mls @ 12.5 mls/hr IV ONETIME ONE Stop: 09/08/17 13:23 Lorazepam (Ativan) 0.5 - 1 mg IVPUSH Q2H PRN PRN Reason: Anxiety Last Admin: 09/08/17 02:02 Dose: 1 mg Magnesium Hydroxide (Milk Of Magnesia) 30 ml PO Q12H PRN PRN Reason: Constipation Methylprednisolone Sodium Succinate (Solu-Medrol) 62.5 mg IVPUSH Q8H [facility] Montelukast Sodium (Singulair) 10 mg PO BEDTIME [facility] Last Admin: 09/07/17 20:52 Dose: Not Given Morphine Sulfate (Morphine) 4 mg IVPUSH Q2H PRN PRN Reason: Shortness of Breath Last Admin: 09/07/17 23:05 Dose: 4 mg Ondansetron HCl (Zofran) 4 mg IV Q4H PRN PRN Reason: Nausea/Vomiting Oxycodone HCl (Oxycodone) 5 mg PO Q4H PRN PRN Reason: Pain (moderate 4-6) Last Admin: 09/06/17 15:38 Dose: 5 mg Polyethylene Glycol (Miralax) 17 gm PO DAILY PRN PRN Reason: Constipation Sertraline HCl (Zoloft) 100 mg PO DAILY [facility] Last Admin: 09/08/17 08:07 Dose: 100 mg Sodium Chloride (Saline Flush) 10 ml FLUSH ASDIRECTED PRN PRN Reason: Keep Vein Open Discontinued Medications Albuterol/Ipratropium (Duoneb 3.0-0.5 Mg/3 Ml) 3 ml NEB ONETIME ONE Stop: 09/03/17 16:06 Last Admin: 09/03/17 16:40 Dose: 3 ml Albuterol/Ipratropium (Duoneb 3.0-0.5 Mg/3 Ml) Confirm Administered Dose 3 ml .ROUTE .STK-MED ONE Stop: 09/03/17 16:08 Last Admin: 09/04/17 16:52 Dose: Not Given Enoxaparin Sodium (Lovenox) 40 mg SUBCUT DAILY [facility] Last Admin: 09/03/17 19:52 Dose: 40 mg Levofloxacin/Dextrose 750 mg/ (Premix) 150 mls @ 100 mls/hr IV Q24H [facility] Last Admin: 09/07/17 19:45 Dose: 100 mls/hr Sodium Chloride (Normal Saline) 1,000 mls @ 75 mls/hr IV ASDIRECTED [facility] Last Admin: 09/04/17 06:10 Dose: 75 mls/hr Sodium Chloride (Normal Saline) 1,000 mls @ 50 mls/hr IV ASDIRECTED [facility] Last Admin: 09/06/17 16:47 Dose: 50 mls/hr Lorazepam (Ativan) 0.5 mg IVPUSH ONETIME ONE Stop: 09/03/17 16:29 Last Admin: 09/03/17 16:40 Dose: 0.5 mg Lorazepam (Ativan) 0.5 mg IVPUSH ONETIME ONE Stop: 09/03/17 17:20 Last Admin: 09/03/17 17:35 Dose: 0.5 mg Lorazepam (Ativan) 0.5 mg IVPUSH Q2H PRN PRN Reason: Anxiety Last Admin: 09/06/17 20:02 Dose: 0.5 mg Methylprednisolone Sodium Succinate (Solu-Medrol) 125 mg IVPUSH ONETIME ONE Stop: 09/03/17 15:59 Last Admin: 09/03/17 16:40 Dose: 125 mg Methylprednisolone Sodium Succinate (Solu-Medrol) 40 mg IVPUSH Q6H [facility] Last Admin: 09/05/17 04:01 Dose: 40 mg Methylprednisolone Sodium Succinate (Solu-Medrol) 40 mg IVPUSH Q12H [facility] Last Admin: 09/07/17 21:00 Dose: 40 mg - Exam Quality Assessment: Supplemental Oxygen, Urine Catheter General: Alert, Cooperative, Mild Distress Neck: Supple Lungs: Other (poor air movement with expiration). No: Normal Respiratory Effort (increased work of breathing), Crackles Cardiovascular: Regular Rhythm, Tachycardia GI/Abdominal Exam: Normal Bowel Sounds, Soft, No Distention Extremities: No Pedal Edema Skin: Warm, Dry Psy/Mental Status: Alert. No: Anxious - Problem List Review Problem List Initiated/Reviewed/Updated: Yes - My Orders Last 24 Hours: My Active Orders 09/07/17 09:15 D5 1/2 NS w/ 20 mEq/L KCl 1,000 ml IV ASDIRECTED 09/08/17 09:24 Dietary Supplements [RC] TIDAC Ang Chest [CT] Routine Magnesium Sulfate/Water [Magnesium Sulfate 2 GM in Water 50 ML] 2 gm Premix Bag 1 bag IV ONETIME 09/08/17 09:30 Doxycycline [Vibramycin] 100 mg Sodium Chloride 0.9% [Normal Saline] 100 ml IV Q12HR methylPREDNISolone Sod Succ [Solu-MEDROL] 62.5 mg IVPUSH Q8H 09/09/17 05:00 CBC W/O DIFF,HEMOGRAM [HEME] Timed (1) COMPREHENSIVE METABOLIC PN,CMP [CHEM] Timed MAGNESIUM [CHEM] Timed - Plan Plan:: ASSESSMENT AND PLAN ACUTE ON CHRONIC HYPOXIC AND HYPERCAPNIC RESPIRATORY - seems a little better but still requiring significant time on the noninvasive ventilation.vital signs relatively stable other than moderate hypertension. -continue gentle IV fluids -Follow-up cultures -Noninvasive positive pressure ventilation as needed -Nebulizer therapy with albuterol, duo nebs, and Pulmicort -Continue ceftriaxone, discontinue levofloxacin and start doxycycline -Solu-Medrol 62.5 mg every 8 hours -CT scan today COPD EXACERBATION SECONDARY TO BRONCHITIS - improved airflow today. -Management as above BENIGN POSITIONAL VERTIGO - no symptoms at this time -Anti-emetic therapy as needed -Symptomatic care PALLIATIVE CARE - patient is adamant about not wanting aggressive interventions past what we are currently doing. She understands that she is experiencing severe respiratory compromise and current interventions may not be enough to pull her through this episode. If she becomes worse despite interventions would like to be comfortable but does not want to consider intubation or mechanical ventilation. MAINTENANCE ISSUES -DVT prophylaxis; Lovenox 40 mg subcutaneous daily -GI prophylaxis; not indicated -Bellamy catheter; not indicated -Nutrition; regular diet DISPOSITION - anticipate discharge to [facility] after the hospital stay. She will need physical therapy once respiratory status stabilizes. Federico Ayon M.D.
[2017-09-08] MEDS ORDERED: methylPREDNISolone Sodium Succinate 40 MG/1 ML SDV IVPUSH SCH (09:30)
[2017-09-08] MEDS: cefTRIAXone 1 GM in Sodium Chloride 0.9% 50 ML IV SCH (09:48)
[2017-09-08] MEDS: D5 1/2 NS w/ 20 mEq/L KCl 1,000 ML IV SCH (09:48)
[2017-09-08] MEDS ORDERED: Sodium Chloride 0.9% 10 ML Syringe FLUSH PRN (09:59)
[2017-09-08] MEDS ORDERED: Iopamidol 755 Mg/ML 100 ML Bottle IV SCH (10:00)
[2017-09-08] MEDS: methylPREDNISolone Sodium Succinate 125 MG/2 ML SDV IV SCH ×2 (10:44→17:55)
[2017-09-08] MEDS: Doxycycline 100 MG in Sodium Chloride 0.9% 100 ML IV SCH ×2 (10:45→22:18)
--- NOTE | 2017-09-08 10:54 | CT ---
Ang Chest INDICATION: hypoxic resp failure, tachycardia TECHNIQUE: CT chest performed with IV contrast using CTA protocol. 3D radial and/or 3D sagittal MIP images reconstructions were obtained and reviewed. DLP: 170 mGycm COMPARISON: CT chest 12/20/2012 FINDINGS: Severe emphysematous change, worse on the right. 4.7 x 3.3 cm mass in the left lower lobe. Mild postobstructive infiltrate or atelectasis in the left lower lobe. No evidence of pulmonary embol ism. Thoracic aorta normal caliber. No mediastinal mass. Minimal left pleural effusion. Multiple old compression deformities in the lower thoracic spine with resultant kyphosis. IMPRESSION: 1. No evidence of pulmonary embolism. 2. 4.7 cm left lower lobe mass. Recommend PET/CT. 3. Severe emphysema.
[2017-09-08] MEDS ORDERED: Magnesium Sulfate/Water 2 GM in Premix Bag 1 BAG IV ONE (11:00)
[2017-09-08] MEDS: Morphine 4 MG/ML Syringe IVPUSH PRN ×2 (14:40→18:39)
[2017-09-08] MEDS: Enoxaparin 40 MG/0.4 ML Syringe SUBCUT SCH (20:58)
[2017-09-08] MEDS: Montelukast 10 MG Tab PO SCH (20:59)
[2017-09-09] MEDS: Morphine 4 MG/ML Syringe IVPUSH PRN ×2 (00:52→20:28)
[2017-09-09] MEDS: Albuterol 0.083% 2.5 MG/3 ML Neb Soln NEB PRN (00:55)
[2017-09-09] MEDS: methylPREDNISolone Sodium Succinate 125 MG/2 ML SDV IV SCH ×3 (01:05→17:00)
[2017-09-09] MEDS: LORazepam 2 MG/ML MDV IVPUSH PRN ×3 (02:33→18:47)
[2017-09-09] MEDS: Budesonide 0.5 MG/2 ML Neb Susp NEB SCH ×2 (07:07→20:42)
[2017-09-09] MEDS: Albuterol/Ipratropium 3.0-0.5 MG/3 ML Neb Soln NEB SCH ×4 (07:07→20:42)
[2017-09-09] MEDS: D5 1/2 NS w/ 20 mEq/L KCl 1,000 ML IV SCH (07:31)
--- NOTE | 2017-09-09 09:10 | PCM.PN ---
- General Info Date of Service: 09/09/17 Functional Status: Reports: Pain Controlled - Review of Systems General: Reports: Weakness Pulmonary: Reports: Shortness of Breath Systems Review Comment:: No acute events overnight. I did have a conference with the patient and her 3 sons last night to relay the results of the CT scan and the lung mass in the lower left chest. The plan is to continue her current cares and try to get her through this respiratory infection so she can go to the residential and hopefully eventually home. They're undecided on further workup at this time. She is more alert and interactive today. She has been stable with the noninvasive ventilation and does well for periods of time without it. She has not had any fevers. No chest pain. - Patient Data Vitals - Most Recent: Last Vital Signs Temp 36.6 C 09/09/17 07:00 Pulse 88 09/09/17 07:07 Resp 11 L 09/09/17 07:00 BP 137/80 09/09/17 07:00 Pulse Ox 93 L 09/09/17 07:18 Weight - Most Recent: 56.291 kg I&O - Last 24 Hours: Intake & Output 09/08/17 09/09/17 09/09/17 22:59 06:59 14:59 Intake Total 838 533 Balance 838 533 Lab Results Last 24 Hours: Laboratory Results - last 24 hr 09/09/17 09/09/17 Range/Units 05:18 05:18 WBC 8.7 (4.5-11.0) K/uL RBC 4.39 (3.30-5.50) M/uL Hgb 12.8 (12.0-15.0) g/dL Hct 42.1 (36.0-48.0) % MCV 96 (80-98) fL MCH 29 (27-31) pg MCHC 30 L (32-36) % Plt Count 196 (150-400) K/uL Sodium 141 (140-148) mmol/L Potassium 4.9 (3.6-5.2) mmol/L Chloride 102 (100-108) mmol/L Carbon Dioxide 38 H (21-32) mmol/L Anion Gap 5.9 (5.0-14.0) mmol/L BUN 17 (7-18) mg/dL Creatinine 0.5 L (0.6-1.0) mg/dL Est Cr Clr Drug Dosing 69.83 mL/min Estimated GFR (MDRD) > 60 (>60) Glucose 160 H (74-106) mg/dL Calcium 8.6 (8.5-10.1) mg/dL Magnesium 2.2 (1.8-2.4) mg/dL Total Bilirubin 0.4 (0.2-1.0) mg/dL AST 23 (15-37) U/L ALT 74 D (12-78) U/L Alkaline Phosphatase 52 (46-116) U/L Total Protein 5.4 L (6.4-8.2) g/dL Albumin 2.9 L (3.4-5.0) g/dL Globulin 2.5 (2.3-3.5) g/dL Albumin/Globulin Ratio 1.2 (1.2-2.2) Toney Results Last 24 Hours: Microbiology 09/03/17 18:15 Aerobic Blood Culture - Final Blood - Venous - Lab Draw NO GROWTH AFTER 5 DAYS Anaerobic Blood Culture - Final NO GROWTH AFTER 5 DAYS 09/03/17 18:00 Aerobic Blood Culture - Final Blood - Venous NO GROWTH AFTER 5 DAYS Anaerobic Blood Culture - Final NO GROWTH AFTER 5 DAYS Med Orders - Current: Current Medications Acetaminophen (Tylenol) 650 mg PO Q4H PRN PRN Reason: Pain (Mild 1-3)/fever Acetaminophen (Tylenol) 650 mg RECTAL Q4H PRN PRN Reason: Mild pain/fever Albuterol (Proventil Neb Soln) 2.5 mg NEB Q4H PRN PRN Reason: Shortness Of Breath/wheezing Last Admin: 09/09/17 00:55 Dose: 2.5 mg Albuterol/Ipratropium (Duoneb 3.0-0.5 Mg/3 Ml) 3 ml NEB QIDRT [facility] Last Admin: 09/09/17 07:07 Dose: 3 ml Aspirin (Halfprin) 81 mg PO DAILY [facility] Last Admin: 09/08/17 08:07 Dose: 81 mg Budesonide (Pulmicort) 0.5 mg NEB BIDRT [facility] Last Admin: 09/09/17 07:07 Dose: 0.5 mg Docusate Sodium (Colace) 100 mg PO BID PRN PRN Reason: Constipation Enoxaparin Sodium (Lovenox) 40 mg SUBCUT Q24H [facility] Last Admin: 09/08/17 20:58 Dose: 40 mg Ceftriaxone Sodium 1 gm/ (Sodium Chloride) 50 mls @ 100 mls/hr IV Q24H [facility] Last Admin: 09/08/17 09:48 Dose: 100 mls/hr Potassium Chloride/Dextrose/Sod Cl (D5 1/2 Ns W/ 20 Meq/L Kcl) 1,000 mls @ 50 mls/hr IV ASDIRECTED [facility] Last Admin: 09/09/17 07:31 Dose: 50 mls/hr Doxycycline Hyclate 100 mg/ (Sodium Chloride) 100 mls @ 100 mls/hr IV Q12H [facility] Last Admin: 09/08/17 22:18 Dose: 100 mls/hr Lorazepam (Ativan) 0.5 - 1 mg IVPUSH Q2H PRN PRN Reason: Anxiety Last Admin: 09/09/17 02:33 Dose: 1 mg Magnesium Hydroxide (Milk Of Magnesia) 30 ml PO Q12H PRN PRN Reason: Constipation Methylprednisolone Sodium Succinate (Solu-Medrol) 62.5 mg IV Q8H [facility] Last Admin: 09/09/17 01:05 Dose: 62.5 mg Montelukast Sodium (Singulair) 10 mg PO BEDTIME [facility] Last Admin: 09/08/17 20:59 Dose: Not Given Morphine Sulfate (Morphine) 4 mg IVPUSH Q2H PRN PRN Reason: Shortness of Breath Last Admin: 09/09/17 00:52 Dose: 4 mg Ondansetron HCl (Zofran) 4 mg IV Q4H PRN PRN Reason: Nausea/Vomiting Oxycodone HCl (Oxycodone) 5 mg PO Q4H PRN PRN Reason: Pain (moderate 4-6) Last Admin: 09/06/17 15:38 Dose: 5 mg Polyethylene Glycol (Miralax) 17 gm PO DAILY PRN PRN Reason: Constipation Sertraline HCl (Zoloft) 100 mg PO DAILY [facility] Last Admin: 09/08/17 08:07 Dose: 100 mg Sodium Chloride (Saline Flush) 10 ml FLUSH ASDIRECTED PRN PRN Reason: Keep Vein Open Last Admin: 09/08/17 10:15 Dose: 10 ml Discontinued Medications Albuterol/Ipratropium (Duoneb 3.0-0.5 Mg/3 Ml) 3 ml NEB ONETIME ONE Stop: 09/03/17 16:06 Last Admin: 09/03/17 16:40 Dose: 3 ml Albuterol/Ipratropium (Duoneb 3.0-0.5 Mg/3 Ml) Confirm Administered Dose 3 ml .ROUTE .STK-MED ONE Stop: 09/03/17 16:08 Last Admin: 09/04/17 16:52 Dose: Not Given Enoxaparin Sodium (Lovenox) 40 mg SUBCUT DAILY [facility] Last Admin: 09/03/17 19:52 Dose: 40 mg Levofloxacin/Dextrose 750 mg/ (Premix) 150 mls @ 100 mls/hr IV Q24H [facility] Last Admin: 09/07/17 19:45 Dose: 100 mls/hr Sodium Chloride (Normal Saline) 1,000 mls @ 75 mls/hr IV ASDIRECTED [facility] Last Admin: 09/04/17 06:10 Dose: 75 mls/hr Sodium Chloride (Normal Saline) 1,000 mls @ 50 mls/hr IV ASDIRECTED [facility] Last Admin: 09/06/17 16:47 Dose: 50 mls/hr Magnesium Sulfate 2 gm/ Premix 50 mls @ 12.5 mls/hr IV ONETIME ONE Stop: 09/08/17 14:59 Last Admin: 09/08/17 10:44 Dose: 12.5 mls/hr Sodium Chloride (Normal Saline) 83 mls @ 3 mls/sec IV ONETIME ONE Stop: 09/08/17 10:00 Last Admin: 09/08/17 10:15 Dose: 3 mls/sec Iopamidol (Isovue-370 (76%)) 70 ml IV . DIRECTED [facility] Stop: 09/08/17 23:00 Last Admin: 09/08/17 10:15 Dose: 70 ml Lorazepam (Ativan) 0.5 mg IVPUSH ONETIME ONE Stop: 09/03/17 16:29 Last Admin: 09/03/17 16:40 Dose: 0.5 mg Lorazepam (Ativan) 0.5 mg IVPUSH ONETIME ONE Stop: 09/03/17 17:20 Last Admin: 09/03/17 17:35 Dose: 0.5 mg Lorazepam (Ativan) 0.5 mg IVPUSH Q2H PRN PRN Reason: Anxiety Last Admin: 09/06/17 20:02 Dose: 0.5 mg Methylprednisolone Sodium Succinate (Solu-Medrol) 125 mg IVPUSH ONETIME ONE Stop: 09/03/17 15:59 Last Admin: 09/03/17 16:40 Dose: 125 mg Methylprednisolone Sodium Succinate (Solu-Medrol) 40 mg IVPUSH Q6H [facility] Last Admin: 09/05/17 04:01 Dose: 40 mg Methylprednisolone Sodium Succinate (Solu-Medrol) 40 mg IVPUSH Q12H [facility] Last Admin: 09/07/17 21:00 Dose: 40 mg Sodium Chloride (Saline Flush) 10 ml FLUSH ONETIME PRN PRN Reason: PER RADIOLOGY PROTOCOL Stop: 09/08/17 23:00 - Exam Quality Assessment: Supplemental Oxygen General: Alert, Cooperative, Mild Distress Neck: Supple Lungs: Other (still poor air movement but better again today). No: Normal Respiratory Effort (mild increase in work of breathing), Crackles, Wheezing Cardiovascular: Regular Rhythm, Tachycardia GI/Abdominal Exam: Normal Bowel Sounds, Soft, No Distention Extremities: No Pedal Edema Skin: Warm, Dry Psy/Mental Status: Alert, Normal Affect - Problem List Review Problem List Initiated/Reviewed/Updated: Yes - My Orders Last 24 Hours: My Active Orders 09/08/17 09:24 Dietary Supplements [RC] TIDAC 09/08/17 10:00 methylPREDNISolone Sod Succ [Solu-MEDROL] 62.5 mg IV Q8H 09/08/17 10:30 Doxycycline [Vibramycin] 100 mg Sodium Chloride 0.9% [Normal Saline] 100 ml IV Q12H - Plan Plan:: ASSESSMENT AND PLAN ACUTE ON CHRONIC HYPOXIC AND HYPERCAPNIC RESPIRATORY - slowly improving but still requiring intermittent noninvasive ventilation. More alert and interactive today and examination has improved over the past couple of days. -continue gentle IV fluids -Follow-up cultures -Noninvasive positive pressure ventilation as needed -Nebulizer therapy with albuterol, duo nebs, and Pulmicort -Continue ceftriaxone and doxycycline -Solu-Medrol 62.5 mg every 8 hours LEFT LUNG MASS - noted on CT scan yesterday. 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 Family is trying to decide if they would like additional workup at this time. Short-term goal is to get her through this infection and decide on workup versus comfort cares after the hospital stay. COPD EXACERBATION SECONDARY TO BRONCHITIS - improved airflow over the past 2 days. -Management as above BENIGN POSITIONAL VERTIGO - no symptoms at this time -Anti-emetic therapy as needed -Symptomatic care PALLIATIVE CARE - patient is adamant about not wanting aggressive interventions past what we are currently doing. She understands that she is experiencing severe respiratory compromise and current interventions may not be enough to pull her through this episode. If she becomes worse despite interventions would like to be comfortable but does not want to consider intubation or mechanical ventilation. MAINTENANCE ISSUES -DVT prophylaxis; Lovenox 40 mg subcutaneous daily -GI prophylaxis; not indicated -Bellamy catheter; not indicated -Nutrition; regular diet DISPOSITION - anticipate discharge to residential after the hospital stay. She will need physical therapy once respiratory status stabilizes. Federico Ayon M.D.
[2017-09-09] MEDS: cefTRIAXone 1 GM in Sodium Chloride 0.9% 50 ML IV SCH (09:11)
[2017-09-09] MEDS: Sertraline 50 MG Tab PO SCH (09:11)
[2017-09-09] MEDS: Aspirin 81 MG Tab.EC PO SCH (09:11)
[2017-09-09] MEDS: Doxycycline 100 MG in Sodium Chloride 0.9% 100 ML IV SCH ×2 (10:28→22:11)
[2017-09-09] MEDS: Enoxaparin 40 MG/0.4 ML Syringe SUBCUT SCH (20:27)
[2017-09-09] MEDS: Montelukast 10 MG Tab PO SCH (20:31)
[2017-09-10] MEDS: methylPREDNISolone Sodium Succinate 125 MG/2 ML SDV IV SCH ×3 (01:41→18:03)
[2017-09-10] MEDS: Morphine 4 MG/ML Syringe IVPUSH PRN ×4 (02:01→21:15)
[2017-09-10] MEDS: D5 1/2 NS w/ 20 mEq/L KCl 1,000 ML IV SCH (05:18)
[2017-09-10] MEDS: Albuterol/Ipratropium 3.0-0.5 MG/3 ML Neb Soln NEB SCH ×4 (07:10→20:51)
[2017-09-10] MEDS: Budesonide 0.5 MG/2 ML Neb Susp NEB SCH ×2 (07:10→20:51)
[2017-09-10] MEDS: Sertraline 50 MG Tab PO SCH (09:07)
[2017-09-10] MEDS: Aspirin 81 MG Tab.EC PO SCH (09:07)
[2017-09-10] MEDS: cefTRIAXone 1 GM in Sodium Chloride 0.9% 50 ML IV SCH (09:09)
--- NOTE | 2017-09-10 09:28 | PCM.PN ---
- General Info Date of Service: 09/10/17 Functional Status: Reports: Pain Controlled, Tolerating Diet - Review of Systems General: Reports: Weakness Pulmonary: Reports: Shortness of Breath Systems Review Comment:: No acute events overnight. She has been off and on the noninvasive ventilation but seems to be breathing easier today. She reports that she feels little less short of breath today. She is more talkative and alert again today. She has not been running any fevers. All of the cultures have been negative. She was able to do some exercises with physical therapy though they were in bed. No bowel movement in a few days. - Patient Data Vitals - Most Recent: Last Vital Signs Temp 37.2 C 09/09/17 23:00 Pulse 92 09/10/17 07:11 Resp 11 L 09/10/17 07:00 BP 145/83 H 09/10/17 07:00 Pulse Ox 97 09/10/17 07:19 Weight - Most Recent: 55 kg I&O - Last 24 Hours: Intake & Output 09/09/17 09/10/17 09/10/17 22:59 06:59 14:59 Intake Total 890 785 Balance 890 785 Med Orders - Current: Current Medications Acetaminophen (Tylenol) 650 mg PO Q4H PRN PRN Reason: Pain (Mild 1-3)/fever Acetaminophen (Tylenol) 650 mg RECTAL Q4H PRN PRN Reason: Mild pain/fever Albuterol (Proventil Neb Soln) 2.5 mg NEB Q4H PRN PRN Reason: Shortness Of Breath/wheezing Last Admin: 09/09/17 00:55 Dose: 2.5 mg Albuterol/Ipratropium (Duoneb 3.0-0.5 Mg/3 Ml) 3 ml NEB QIDRT [facility] Last Admin: 09/10/17 07:10 Dose: 3 ml Aspirin (Halfprin) 81 mg PO DAILY [facility] Last Admin: 09/10/17 09:07 Dose: 81 mg Budesonide (Pulmicort) 0.5 mg NEB BIDRT [facility] Last Admin: 09/10/17 07:10 Dose: 0.5 mg Docusate Sodium (Colace) 100 mg PO BID PRN PRN Reason: Constipation Last Admin: 09/10/17 09:08 Dose: 100 mg Enoxaparin Sodium (Lovenox) 40 mg SUBCUT Q24H [facility] Last Admin: 09/09/17 20:27 Dose: 40 mg Ceftriaxone Sodium 1 gm/ (Sodium Chloride) 50 mls @ 100 mls/hr IV Q24H [facility] Last Admin: 09/10/17 09:09 Dose: 100 mls/hr Potassium Chloride/Dextrose/Sod Cl (D5 1/2 Ns W/ 20 Meq/L Kcl) 1,000 mls @ 50 mls/hr IV ASDIRECTED [facility] Last Admin: 09/10/17 05:18 Dose: 50 mls/hr Doxycycline Hyclate 100 mg/ (Sodium Chloride) 100 mls @ 100 mls/hr IV Q12H [facility] Last Admin: 09/09/17 22:11 Dose: 100 mls/hr Lorazepam (Ativan) 0.5 - 1 mg IVPUSH Q2H PRN PRN Reason: Anxiety Last Admin: 09/09/17 18:47 Dose: 1 mg Magnesium Hydroxide (Milk Of Magnesia) 30 ml PO Q12H PRN PRN Reason: Constipation Last Admin: 09/10/17 09:07 Dose: 30 ml Methylprednisolone Sodium Succinate (Solu-Medrol) 62.5 mg IV Q8H [facility] Last Admin: 09/10/17 09:09 Dose: 62.5 mg Montelukast Sodium (Singulair) 10 mg PO BEDTIME [facility] Last Admin: 09/09/17 20:31 Dose: 10 mg Morphine Sulfate (Morphine) 4 mg IVPUSH Q2H PRN PRN Reason: Shortness of Breath Last Admin: 09/10/17 02:01 Dose: 4 mg Ondansetron HCl (Zofran) 4 mg IV Q4H PRN PRN Reason: Nausea/Vomiting Oxycodone HCl (Oxycodone) 5 mg PO Q4H PRN PRN Reason: Pain (moderate 4-6) Last Admin: 09/06/17 15:38 Dose: 5 mg Polyethylene Glycol (Miralax) 17 gm PO DAILY PRN PRN Reason: Constipation Last Admin: 09/10/17 09:08 Dose: 17 gm Sertraline HCl (Zoloft) 100 mg PO DAILY [facility] Last Admin: 09/10/17 09:07 Dose: 100 mg Sodium Chloride (Saline Flush) 10 ml FLUSH ASDIRECTED PRN PRN Reason: Keep Vein Open Last Admin: 09/08/17 10:15 Dose: 10 ml Discontinued Medications Albuterol/Ipratropium (Duoneb 3.0-0.5 Mg/3 Ml) 3 ml NEB ONETIME ONE Stop: 09/03/17 16:06 Last Admin: 09/03/17 16:40 Dose: 3 ml Albuterol/Ipratropium (Duoneb 3.0-0.5 Mg/3 Ml) Confirm Administered Dose 3 ml .ROUTE .STK-MED ONE Stop: 09/03/17 16:08 Last Admin: 09/04/17 16:52 Dose: Not Given Enoxaparin Sodium (Lovenox) 40 mg SUBCUT DAILY [facility] Last Admin: 09/03/17 19:52 Dose: 40 mg Levofloxacin/Dextrose 750 mg/ (Premix) 150 mls @ 100 mls/hr IV Q24H [facility] Last Admin: 09/07/17 19:45 Dose: 100 mls/hr Sodium Chloride (Normal Saline) 1,000 mls @ 75 mls/hr IV ASDIRECTED [facility] Last Admin: 09/04/17 06:10 Dose: 75 mls/hr Sodium Chloride (Normal Saline) 1,000 mls @ 50 mls/hr IV ASDIRECTED [facility] Last Admin: 09/06/17 16:47 Dose: 50 mls/hr Magnesium Sulfate 2 gm/ Premix 50 mls @ 12.5 mls/hr IV ONETIME ONE Stop: 09/08/17 14:59 Last Admin: 09/08/17 10:44 Dose: 12.5 mls/hr Sodium Chloride (Normal Saline) 83 mls @ 3 mls/sec IV ONETIME ONE Stop: 09/08/17 10:00 Last Admin: 09/08/17 10:15 Dose: 3 mls/sec Iopamidol (Isovue-370 (76%)) 70 ml IV . DIRECTED [facility] Stop: 09/08/17 23:00 Last Admin: 09/08/17 10:15 Dose: 70 ml Lorazepam (Ativan) 0.5 mg IVPUSH ONETIME ONE Stop: 09/03/17 16:29 Last Admin: 09/03/17 16:40 Dose: 0.5 mg Lorazepam (Ativan) 0.5 mg IVPUSH ONETIME ONE Stop: 09/03/17 17:20 Last Admin: 09/03/17 17:35 Dose: 0.5 mg Lorazepam (Ativan) 0.5 mg IVPUSH Q2H PRN PRN Reason: Anxiety Last Admin: 09/06/17 20:02 Dose: 0.5 mg Methylprednisolone Sodium Succinate (Solu-Medrol) 125 mg IVPUSH ONETIME ONE Stop: 09/03/17 15:59 Last Admin: 09/03/17 16:40 Dose: 125 mg Methylprednisolone Sodium Succinate (Solu-Medrol) 40 mg IVPUSH Q6H [facility] Last Admin: 09/05/17 04:01 Dose: 40 mg Methylprednisolone Sodium Succinate (Solu-Medrol) 40 mg IVPUSH Q12H [facility] Last Admin: 09/07/17 21:00 Dose: 40 mg Sodium Chloride (Saline Flush) 10 ml FLUSH ONETIME PRN PRN Reason: PER RADIOLOGY PROTOCOL Stop: 09/08/17 23:00 - Exam Quality Assessment: Supplemental Oxygen General: Alert, Oriented, Cooperative, No Acute Distress Lungs: Normal Respiratory Effort, Other (minimal but improved exp air movement) . No: Crackles Cardiovascular: Regular Rhythm, Tachycardia GI/Abdominal Exam: Normal Bowel Sounds, Soft Extremities: No Pedal Edema Skin: Warm, Dry Psy/Mental Status: Alert, Normal Affect - Problem List Review Problem List Initiated/Reviewed/Updated: Yes - My Orders Last 24 Hours: My Active Orders 09/11/17 05:00 BASIC METABOLIC PANEL,BMP [CHEM] Timed CBC W/O DIFF,HEMOGRAM [HEME] Timed (1) - Plan Plan:: ASSESSMENT AND PLAN ACUTE ON CHRONIC HYPOXIC AND HYPERCAPNIC RESPIRATORY - slowly improving but still requiring intermittent noninvasive ventilation. More alert and interactive again today and moving better air. 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 Family is trying to decide if they would like additional workup at this time. Short-term goal is to get her through this infection and decide on workup versus comfort cares after the hospital stay. COPD EXACERBATION SECONDARY TO BRONCHITIS - improved airflow over the past 3 days. -Management as above BENIGN POSITIONAL VERTIGO - no symptoms at this time -Anti-emetic therapy as needed -Symptomatic care PALLIATIVE CARE - patient is adamant about not wanting aggressive interventions past what we are currently doing. She understands that she is experiencing severe respiratory compromise and current interventions may not be enough to pull her through this episode. If she becomes worse despite interventions would like to be comfortable but does not want to consider intubation or mechanical ventilation. MAINTENANCE ISSUES -DVT prophylaxis; Lovenox 40 mg subcutaneous daily -GI prophylaxis; not indicated -Bellamy catheter; not indicated -Nutrition; regular diet DISPOSITION - anticipate discharge to [facility] after the hospital stay. She will need physical therapy once respiratory status stabilizes. Federico Ayon M.D.
[2017-09-10] MEDS: Doxycycline 100 MG in Sodium Chloride 0.9% 100 ML IV SCH ×2 (10:59→22:23)
[2017-09-10] MEDS: Enoxaparin 40 MG/0.4 ML Syringe SUBCUT SCH (20:50)
[2017-09-10] MEDS: Montelukast 10 MG Tab PO SCH (20:51)
[2017-09-11] MEDS: methylPREDNISolone Sodium Succinate 125 MG/2 ML SDV IV SCH ×2 (02:10→09:08)
[2017-09-11] MEDS: D5 1/2 NS w/ 20 mEq/L KCl 1,000 ML IV SCH ×2 (02:59→22:16)
[2017-09-11] MEDS: Albuterol 0.083% 2.5 MG/3 ML Neb Soln NEB PRN (03:06)
[2017-09-11] MEDS: Albuterol/Ipratropium 3.0-0.5 MG/3 ML Neb Soln NEB SCH ×4 (08:00→20:02)
[2017-09-11] MEDS: Budesonide 0.5 MG/2 ML Neb Susp NEB SCH ×2 (08:01→20:02)
[2017-09-11] MEDS: Morphine 4 MG/ML Syringe IVPUSH PRN ×2 (08:37→20:42)
[2017-09-11] MEDS: Aspirin 81 MG Tab.EC PO SCH (09:08)
[2017-09-11] MEDS: Sertraline 50 MG Tab PO SCH (09:08)
[2017-09-11] MEDS: cefTRIAXone 1 GM in Sodium Chloride 0.9% 50 ML IV SCH (09:11)
--- NOTE | 2017-09-11 09:43 | PCM.PN ---
- General Info Date of Service: 09/11/17 Functional Status: Reports: Pain Controlled, Tolerating Diet - Review of Systems General: Reports: Weakness Pulmonary: Reports: Shortness of Breath Systems Review Comment:: No acute events overnight. She seems to be doing better during her noninvasive ventilation is removed. She is moving better air today. She has not had any fevers. No complaints of chest pain. She is very weak and does not have much of an appetite. - Patient Data Vitals - Most Recent: Last Vital Signs Temp 36.5 C 09/11/17 08:00 Pulse 97 09/11/17 05:28 Resp 20 09/11/17 08:00 BP 159/97 H 09/11/17 08:00 Pulse Ox 97 09/11/17 08:00 Weight - Most Recent: 54.9 kg I&O - Last 24 Hours: Intake & Output 09/10/17 09/11/17 09/11/17 22:59 06:59 14:59 Intake Total 1010 625 Balance 1010 625 Lab Results Last 24 Hours: Laboratory Results - last 24 hr 09/11/17 09/11/17 Range/Units 05:58 05:58 WBC 15.3 H (4.5-11.0) K/uL RBC 4.65 (3.30-5.50) M/uL Hgb 13.5 (12.0-15.0) g/dL Hct 43.9 (36.0-48.0) % MCV 94 (80-98) fL MCH 29 (27-31) pg MCHC 31 L (32-36) % Plt Count 224 (150-400) K/uL Sodium 140 (140-148) mmol/L Potassium 5.1 (3.6-5.2) mmol/L Chloride 101 (100-108) mmol/L Carbon Dioxide 35 H (21-32) mmol/L Anion Gap 9.1 (5.0-14.0) mmol/L BUN 19 H (7-18) mg/dL Creatinine 0.4 L (0.6-1.0) mg/dL Est Cr Clr Drug Dosing 87.29 mL/min Estimated GFR (MDRD) > 60 (>60) Glucose 151 H (74-106) mg/dL Calcium 9.0 (8.5-10.1) mg/dL Med Orders - Current: Current Medications Acetaminophen (Tylenol) 650 mg PO Q4H PRN PRN Reason: Pain (Mild 1-3)/fever Acetaminophen (Tylenol) 650 mg RECTAL Q4H PRN PRN Reason: Mild pain/fever Albuterol (Proventil Neb Soln) 2.5 mg NEB Q4H PRN PRN Reason: Shortness Of Breath/wheezing Last Admin: 09/11/17 03:06 Dose: 2.5 mg Albuterol/Ipratropium (Duoneb 3.0-0.5 Mg/3 Ml) 3 ml NEB QIDRT [facility] Last Admin: 09/11/17 08:00 Dose: 3 ml Aspirin (Halfprin) 81 mg PO DAILY [facility] Last Admin: 09/11/17 09:08 Dose: 81 mg Budesonide (Pulmicort) 0.5 mg NEB BIDRT [facility] Last Admin: 09/11/17 08:01 Dose: 0.5 mg Docusate Sodium (Colace) 100 mg PO BID PRN PRN Reason: Constipation Last Admin: 09/10/17 09:08 Dose: 100 mg Enoxaparin Sodium (Lovenox) 40 mg SUBCUT Q24H [facility] Last Admin: 09/10/17 20:50 Dose: 40 mg Ceftriaxone Sodium 1 gm/ (Sodium Chloride) 50 mls @ 100 mls/hr IV Q24H [facility] Last Admin: 09/11/17 09:11 Dose: 100 mls/hr Potassium Chloride/Dextrose/Sod Cl (D5 1/2 Ns W/ 20 Meq/L Kcl) 1,000 mls @ 50 mls/hr IV ASDIRECTED [facility] Last Admin: 09/11/17 02:59 Dose: 50 mls/hr Lorazepam (Ativan) 0.5 - 1 mg IVPUSH Q2H PRN PRN Reason: Anxiety Last Admin: 09/09/17 18:47 Dose: 1 mg Magnesium Hydroxide (Milk Of Magnesia) 30 ml PO Q12H PRN PRN Reason: Constipation Last Admin: 09/10/17 09:07 Dose: 30 ml Montelukast Sodium (Singulair) 10 mg PO BEDTIME [facility] Last Admin: 09/10/17 20:51 Dose: 10 mg Morphine Sulfate (Morphine) 4 mg IVPUSH Q2H PRN PRN Reason: Shortness of Breath Last Admin: 09/11/17 08:37 Dose: 4 mg Ondansetron HCl (Zofran) 4 mg IV Q4H PRN PRN Reason: Nausea/Vomiting Oxycodone HCl (Oxycodone) 5 mg PO Q4H PRN PRN Reason: Pain (moderate 4-6) Last Admin: 09/06/17 15:38 Dose: 5 mg Polyethylene Glycol (Miralax) 17 gm PO DAILY PRN PRN Reason: Constipation Last Admin: 09/10/17 09:08 Dose: 17 gm Sertraline HCl (Zoloft) 100 mg PO DAILY [facility] Last Admin: 09/11/17 09:08 Dose: 100 mg Sodium Chloride (Saline Flush) 10 ml FLUSH ASDIRECTED PRN PRN Reason: Keep Vein Open Last Admin: 09/08/17 10:15 Dose: 10 ml Discontinued Medications Albuterol/Ipratropium (Duoneb 3.0-0.5 Mg/3 Ml) 3 ml NEB ONETIME ONE Stop: 09/03/17 16:06 Last Admin: 09/03/17 16:40 Dose: 3 ml Albuterol/Ipratropium (Duoneb 3.0-0.5 Mg/3 Ml) Confirm Administered Dose 3 ml .ROUTE .STK-MED ONE Stop: 09/03/17 16:08 Last Admin: 09/04/17 16:52 Dose: Not Given Enoxaparin Sodium (Lovenox) 40 mg SUBCUT DAILY [facility] Last Admin: 09/03/17 19:52 Dose: 40 mg Levofloxacin/Dextrose 750 mg/ (Premix) 150 mls @ 100 mls/hr IV Q24H [facility] Last Admin: 09/07/17 19:45 Dose: 100 mls/hr Sodium Chloride (Normal Saline) 1,000 mls @ 75 mls/hr IV ASDIRECTED [facility] Last Admin: 09/04/17 06:10 Dose: 75 mls/hr Sodium Chloride (Normal Saline) 1,000 mls @ 50 mls/hr IV ASDIRECTED [facility] Last Admin: 09/06/17 16:47 Dose: 50 mls/hr Doxycycline Hyclate 100 mg/ (Sodium Chloride) 100 mls @ 100 mls/hr IV Q12H [facility] Last Admin: 09/10/17 22:23 Dose: 100 mls/hr Magnesium Sulfate 2 gm/ Premix 50 mls @ 12.5 mls/hr IV ONETIME ONE Stop: 09/08/17 14:59 Last Admin: 09/08/17 10:44 Dose: 12.5 mls/hr Sodium Chloride (Normal Saline) 83 mls @ 3 mls/sec IV ONETIME ONE Stop: 09/08/17 10:00 Last Admin: 09/08/17 10:15 Dose: 3 mls/sec Iopamidol (Isovue-370 (76%)) 70 ml IV . DIRECTED [facility] Stop: 09/08/17 23:00 Last Admin: 09/08/17 10:15 Dose: 70 ml Lorazepam (Ativan) 0.5 mg IVPUSH ONETIME ONE Stop: 09/03/17 16:29 Last Admin: 09/03/17 16:40 Dose: 0.5 mg Lorazepam (Ativan) 0.5 mg IVPUSH ONETIME ONE Stop: 09/03/17 17:20 Last Admin: 09/03/17 17:35 Dose: 0.5 mg Lorazepam (Ativan) 0.5 mg IVPUSH Q2H PRN PRN Reason: Anxiety Last Admin: 09/06/17 20:02 Dose: 0.5 mg Methylprednisolone Sodium Succinate (Solu-Medrol) 125 mg IVPUSH ONETIME ONE Stop: 09/03/17 15:59 Last Admin: 09/03/17 16:40 Dose: 125 mg Methylprednisolone Sodium Succinate (Solu-Medrol) 40 mg IVPUSH Q6H [facility] Last Admin: 09/05/17 04:01 Dose: 40 mg Methylprednisolone Sodium Succinate (Solu-Medrol) 40 mg IVPUSH Q12H [facility] Last Admin: 09/07/17 21:00 Dose: 40 mg Methylprednisolone Sodium Succinate (Solu-Medrol) 62.5 mg IV Q8H [facility] Last Admin: 09/11/17 09:08 Dose: 62.5 mg Sodium Chloride (Saline Flush) 10 ml FLUSH ONETIME PRN PRN Reason: PER RADIOLOGY PROTOCOL Stop: 09/08/17 23:00 - Exam Quality Assessment: Supplemental Oxygen General: Alert, Oriented, Cooperative, No Acute Distress Neck: Supple Lungs: Clear to Auscultation, Normal Respiratory Effort, Other (prolonged exp phase but better air movement) Cardiovascular: Regular Rhythm, Tachycardia GI/Abdominal Exam: Soft, Non-Tender, Distended (mild) Extremities: No Pedal Edema Psy/Mental Status: Alert, Normal Affect - Problem List Review Problem List Initiated/Reviewed/Updated: Yes - My Orders Last 24 Hours: My Active Orders 09/11/17 09:42 Discontinue Telemetry Monitoring [Cardiac Monitoring Discontinue] [RC] Click to Edit 09/11/17 09:45 Doxycycline [Vibramycin] 100 mg PO BID 09/11/17 16:30 predniSONE 20 mg PO BIDAC 09/12/17 05:00 BASIC METABOLIC PANEL,BMP [CHEM] Timed CBC W/O DIFF,HEMOGRAM [HEME] Timed (1) - Plan Plan:: ASSESSMENT AND PLAN ACUTE ON CHRONIC HYPOXIC AND HYPERCAPNIC RESPIRATORY - slowly improving. Still using noninvasive ventilation some but is more stable each day. Moving better air on examination today. Symptomatically feels better. 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 Family and patient are trying to decide if they would like additional workup at this time. Short-term goal is to get her through this infection and decide on workup versus comfort cares after the hospital stay. COPD EXACERBATION SECONDARY TO BRONCHITIS - improved airflow over the past few days. -Management as above PALLIATIVE CARE - patient is adamant about not wanting aggressive interventions past what we are currently doing. She understands that she is experiencing severe respiratory compromise and current interventions may not be enough to pull her through this episode. If she becomes worse despite interventions would like to be comfortable but does not want to consider intubation or mechanical ventilation. MAINTENANCE ISSUES -DVT prophylaxis; Lovenox 40 mg subcutaneous daily -GI prophylaxis; not indicated -Bellamy catheter; not indicated -Nutrition; regular diet DISPOSITION - anticipate discharge to [facility] after the hospital stay. She is working with physical therapy but very limited in what she can do at this point. Federico Ayon M.D.
[2017-09-11] MEDS: Doxycycline 100 MG Cap PO SCH ×2 (11:21→20:02)
[2017-09-11] MEDS: LORazepam 2 MG/ML MDV IVPUSH PRN (11:21)
[2017-09-11] MEDS: predniSONE 20 MG Tab PO SCH (17:29)
[2017-09-11] MEDS: Enoxaparin 40 MG/0.4 ML Syringe SUBCUT SCH (19:47)
[2017-09-11] MEDS: Montelukast 10 MG Tab PO SCH (20:02)
[2017-09-12] MEDS: Albuterol 0.083% 2.5 MG/3 ML Neb Soln NEB PRN ×4 (03:56→17:25)
[2017-09-12] MEDS: LORazepam 2 MG/ML MDV IVPUSH PRN (05:11)
[2017-09-12] MEDS: Albuterol/Ipratropium 3.0-0.5 MG/3 ML Neb Soln NEB SCH ×4 (07:00→20:01)
[2017-09-12] MEDS: Budesonide 0.5 MG/2 ML Neb Susp NEB SCH ×2 (07:00→20:01)
[2017-09-12] MEDS: Aspirin 81 MG Tab.EC PO SCH (08:18)
[2017-09-12] MEDS: Doxycycline 100 MG Cap PO SCH ×2 (08:18→20:01)
[2017-09-12] MEDS: predniSONE 20 MG Tab PO SCH ×2 (08:18→16:19)
[2017-09-12] MEDS: Sertraline 50 MG Tab PO SCH (08:18)
[2017-09-12] MEDS: Morphine 4 MG/ML Syringe IVPUSH PRN ×2 (08:44→10:56)
--- NOTE | 2017-09-12 09:41 | PCM.PN ---
- General Info Date of Service: 09/12/17 Functional Status: Reports: Pain Controlled - Review of Systems General: Reports: Weakness Pulmonary: Reports: Shortness of Breath, Cough Systems Review Comment:: No acute events overnight. Patient was off of the noninvasive ventilation overnight. She feels more short of breath today. Cough has persisted but is not any worse. She has not had any fevers. No complaints of chest pain. Still feels weak. Appetite has been poor. - Patient Data Vitals - Most Recent: Last Vital Signs Temp 36.2 C 09/12/17 07:45 Pulse 94 09/12/17 07:45 Resp 20 09/12/17 07:45 BP 126/75 09/12/17 07:45 Pulse Ox 93 L 09/12/17 07:45 Weight - Most Recent: 54.1 kg I&O - Last 24 Hours: Intake & Output 09/11/17 09/12/17 09/12/17 22:59 06:59 14:59 Intake Total 650 622 Balance 650 622 Lab Results Last 24 Hours: Laboratory Results - last 24 hr 09/12/17 09/12/17 Range/Units 05:26 05:26 WBC 17.9 H (4.5-11.0) K/uL RBC 4.79 (3.30-5.50) M/uL Hgb 14.3 (12.0-15.0) g/dL Hct 44.5 (36.0-48.0) % MCV 93 (80-98) fL MCH 30 (27-31) pg MCHC 32 (32-36) % Plt Count 234 (150-400) K/uL Sodium 137 L (140-148) mmol/L Potassium 4.9 (3.6-5.2) mmol/L Chloride 99 L (100-108) mmol/L Carbon Dioxide 36 H (21-32) mmol/L Anion Gap 6.9 (5.0-14.0) mmol/L BUN 19 H (7-18) mg/dL Creatinine 0.4 L (0.6-1.0) mg/dL Est Cr Clr Drug Dosing 87.29 mL/min Estimated GFR (MDRD) > 60 (>60) Glucose 125 H (74-106) mg/dL Calcium 9.4 (8.5-10.1) mg/dL Med Orders - Current: Current Medications Acetaminophen (Tylenol) 650 mg PO Q4H PRN PRN Reason: Pain (Mild 1-3)/fever Acetaminophen (Tylenol) 650 mg RECTAL Q4H PRN PRN Reason: Mild pain/fever Albuterol (Proventil Neb Soln) 2.5 mg NEB Q4H PRN PRN Reason: Shortness Of Breath/wheezing Last Admin: 09/12/17 08:44 Dose: 2.5 mg Albuterol/Ipratropium (Duoneb 3.0-0.5 Mg/3 Ml) 3 ml NEB QIDRT [facility] Last Admin: 09/12/17 07:00 Dose: 3 ml Aspirin (Halfprin) 81 mg PO DAILY [facility] Last Admin: 09/12/17 08:18 Dose: 81 mg Budesonide (Pulmicort) 0.5 mg NEB BIDRT [facility] Last Admin: 09/12/17 07:00 Dose: 0.5 mg Docusate Sodium (Colace) 100 mg PO BID PRN PRN Reason: Constipation Last Admin: 09/10/17 09:08 Dose: 100 mg Doxycycline Hyclate (Vibramycin) 100 mg PO BID [facility] Last Admin: 09/12/17 08:18 Dose: 100 mg Enoxaparin Sodium (Lovenox) 40 mg SUBCUT Q24H [facility] Last Admin: 09/11/17 19:47 Dose: 40 mg Ceftriaxone Sodium 1 gm/ (Sodium Chloride) 50 mls @ 100 mls/hr IV Q24H [facility] Last Admin: 09/11/17 09:11 Dose: 100 mls/hr Potassium Chloride/Dextrose/Sod Cl (D5 1/2 Ns W/ 20 Meq/L Kcl) 1,000 mls @ 50 mls/hr IV ASDIRECTED [facility] Last Admin: 09/11/17 22:16 Dose: 50 mls/hr Lorazepam (Ativan) 0.5 - 1 mg IVPUSH Q2H PRN PRN Reason: Anxiety Last Admin: 09/12/17 05:11 Dose: 0.5 mg Magnesium Hydroxide (Milk Of Magnesia) 30 ml PO Q12H PRN PRN Reason: Constipation Last Admin: 09/10/17 09:07 Dose: 30 ml Montelukast Sodium (Singulair) 10 mg PO BEDTIME [facility] Last Admin: 09/11/17 20:02 Dose: 10 mg Morphine Sulfate (Morphine) 4 mg IVPUSH Q2H PRN PRN Reason: Shortness of Breath Last Admin: 09/12/17 08:44 Dose: 4 mg Ondansetron HCl (Zofran) 4 mg IV Q4H PRN PRN Reason: Nausea/Vomiting Oxycodone HCl (Oxycodone) 5 mg PO Q4H PRN PRN Reason: Pain (moderate 4-6) Last Admin: 09/06/17 15:38 Dose: 5 mg Polyethylene Glycol (Miralax) 17 gm PO DAILY PRN PRN Reason: Constipation Last Admin: 09/10/17 09:08 Dose: 17 gm Prednisone (Prednisone) 20 mg PO BIDAC [facility] Last Admin: 09/12/17 08:18 Dose: 20 mg Sertraline HCl (Zoloft) 100 mg PO DAILY [facility] Last Admin: 09/12/17 08:18 Dose: 100 mg Sodium Chloride (Saline Flush) 10 ml FLUSH ASDIRECTED PRN PRN Reason: Keep Vein Open Last Admin: 09/08/17 10:15 Dose: 10 ml Discontinued Medications Albuterol/Ipratropium (Duoneb 3.0-0.5 Mg/3 Ml) 3 ml NEB ONETIME ONE Stop: 09/03/17 16:06 Last Admin: 09/03/17 16:40 Dose: 3 ml Albuterol/Ipratropium (Duoneb 3.0-0.5 Mg/3 Ml) Confirm Administered Dose 3 ml .ROUTE .STK-MED ONE Stop: 09/03/17 16:08 Last Admin: 09/04/17 16:52 Dose: Not Given Enoxaparin Sodium (Lovenox) 40 mg SUBCUT DAILY [facility] Last Admin: 09/03/17 19:52 Dose: 40 mg Levofloxacin/Dextrose 750 mg/ (Premix) 150 mls @ 100 mls/hr IV Q24H [facility] Last Admin: 09/07/17 19:45 Dose: 100 mls/hr Sodium Chloride (Normal Saline) 1,000 mls @ 75 mls/hr IV ASDIRECTED [facility] Last Admin: 09/04/17 06:10 Dose: 75 mls/hr Sodium Chloride (Normal Saline) 1,000 mls @ 50 mls/hr IV ASDIRECTED [facility] Last Admin: 09/06/17 16:47 Dose: 50 mls/hr Doxycycline Hyclate 100 mg/ (Sodium Chloride) 100 mls @ 100 mls/hr IV Q12H [facility] Last Admin: 09/10/17 22:23 Dose: 100 mls/hr Magnesium Sulfate 2 gm/ Premix 50 mls @ 12.5 mls/hr IV ONETIME ONE Stop: 09/08/17 14:59 Last Admin: 09/08/17 10:44 Dose: 12.5 mls/hr Sodium Chloride (Normal Saline) 83 mls @ 3 mls/sec IV ONETIME ONE Stop: 09/08/17 10:00 Last Admin: 09/08/17 10:15 Dose: 3 mls/sec Iopamidol (Isovue-370 (76%)) 70 ml IV . DIRECTED [facility] Stop: 09/08/17 23:00 Last Admin: 09/08/17 10:15 Dose: 70 ml Lorazepam (Ativan) 0.5 mg IVPUSH ONETIME ONE Stop: 09/03/17 16:29 Last Admin: 09/03/17 16:40 Dose: 0.5 mg Lorazepam (Ativan) 0.5 mg IVPUSH ONETIME ONE Stop: 09/03/17 17:20 Last Admin: 09/03/17 17:35 Dose: 0.5 mg Lorazepam (Ativan) 0.5 mg IVPUSH Q2H PRN PRN Reason: Anxiety Last Admin: 09/06/17 20:02 Dose: 0.5 mg Methylprednisolone Sodium Succinate (Solu-Medrol) 125 mg IVPUSH ONETIME ONE Stop: 09/03/17 15:59 Last Admin: 09/03/17 16:40 Dose: 125 mg Methylprednisolone Sodium Succinate (Solu-Medrol) 40 mg IVPUSH Q6H [facility] Last Admin: 09/05/17 04:01 Dose: 40 mg Methylprednisolone Sodium Succinate (Solu-Medrol) 40 mg IVPUSH Q12H [facility] Last Admin: 09/07/17 21:00 Dose: 40 mg Methylprednisolone Sodium Succinate (Solu-Medrol) 62.5 mg IV Q8H [facility] Last Admin: 09/11/17 09:08 Dose: 62.5 mg Sodium Chloride (Saline Flush) 10 ml FLUSH ONETIME PRN PRN Reason: PER RADIOLOGY PROTOCOL Stop: 09/08/17 23:00 - Exam Quality Assessment: Supplemental Oxygen General: Alert, Oriented, Cooperative, No Acute Distress Lungs: Other (poor exp air movement ). No: Normal Respiratory Effort ( increased work of breathing ), Crackles, Wheezing Cardiovascular: Regular Rate, Regular Rhythm GI/Abdominal Exam: Soft, No Distention, Tender (mild ) Extremities: Pedal Edema (trace ankle edema). No: Increased Warmth Skin: Warm, Intact Psy/Mental Status: Alert, Normal Affect - Problem List Review Problem List Initiated/Reviewed/Updated: Yes - My Orders Last 24 Hours: My Active Orders 09/11/17 09:42 Discontinue Telemetry Monitoring [Cardiac Monitoring Discontinue] [RC] Click to Edit 09/11/17 09:45 Doxycycline [Vibramycin] 100 mg PO BID 09/11/17 16:30 predniSONE 20 mg PO BIDAC 09/13/17 05:00 BASIC METABOLIC PANEL,BMP [CHEM] Timed CBC W/O DIFF,HEMOGRAM [HEME] Timed (1) 09/13/17 07:00 Consult to Speech Language Pathology [MATERIAL SCHEDULER Evaluation and Treatment] [CONS] Routine - Plan Plan:: ASSESSMENT AND PLAN ACUTE ON CHRONIC HYPOXIC AND HYPERCAPNIC RESPIRATORY - stable since yesterday. Did not use noninvasive ventilation overnight and seems tired out this morning. No fevers. Still not much of an appetite and very weak. Tolerating current medications. 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 Family and patient are trying to decide if they would like additional workup at this time. Short-term goal is to get her through this infection and decide on workup versus comfort cares after the hospital stay. COPD EXACERBATION SECONDARY TO BRONCHITIS - improved airflow over the past few days. -Management as above PALLIATIVE CARE - patient is adamant about not wanting aggressive interventions past what we are currently doing. She understands that she is experiencing severe respiratory compromise and current interventions may not be enough to pull her through this episode. If she becomes worse despite interventions would like to be comfortable but does not want to consider intubation or mechanical ventilation. MAINTENANCE ISSUES -DVT prophylaxis; enoxaparin 40 mg subcutaneous daily -GI prophylaxis; not indicated -Bellamy catheter; not indicated -Nutrition; regular diet DISPOSITION - [facility]. She is working with physical therapy but very limited in what she can do at this point. Federico Ayon M.D.
[2017-09-12] MEDS: cefTRIAXone 1 GM in Sodium Chloride 0.9% 50 ML IV SCH (10:12)
[2017-09-12] MEDS: Morphine 2 MG/ML Syringe IVPUSH PRN ×2 (17:14→21:46)
[2017-09-12] MEDS: D5 1/2 NS w/ 20 mEq/L KCl 1,000 ML IV SCH (18:38)
[2017-09-12] MEDS: Enoxaparin 40 MG/0.4 ML Syringe SUBCUT SCH (19:55)
[2017-09-12] MEDS: Montelukast 10 MG Tab PO SCH (20:01)
[2017-09-12] MEDS ORDERED: Dimethicone 20%/Zinc Oxide 25% 56 GM Spray Bottle TOP PRN (22:35)
[2017-09-13] MEDS: Albuterol 0.083% 2.5 MG/3 ML Neb Soln NEB PRN (00:11)
[2017-09-13] MEDS: LORazepam 2 MG/ML MDV IVPUSH PRN ×2 (01:14→16:54)
[2017-09-13] MEDS: Albuterol/Ipratropium 3.0-0.5 MG/3 ML Neb Soln NEB SCH ×4 (07:09→21:20)
[2017-09-13] MEDS: Budesonide 0.5 MG/2 ML Neb Susp NEB SCH ×2 (07:09→21:20)
--- NOTE | 2017-09-13 09:53 | PCM.PN ---
- General Info Date of Service: 09/13/17 Subjective Update: Ms. Cheatham continues to require intermittent use of noninvasive ventilation. Respiratory status remains fairly compromised with increased shortness of breath with talking and eating. CT scan obtained last week did show evidence of a 5 cm pulmonary mass consistent with underlying malignancy. She had previously decided on comfort cares only but now has backed away from that somewhat. - Review of Systems General: Reports: Weakness. Denies: Fever, Chills Pulmonary: Reports: Shortness of Breath, Cough, Wheezing. Denies: Pleuritic Chest Pain, Sputum, Hemoptysis Cardiovascular: Reports: Dyspnea on Exertion. Denies: Chest Pain, Palpitations , Orthopnea, PND, Edema, Lightheadedness Gastrointestinal: Reports: No Symptoms - Patient Data Vitals - Most Recent: Last Vital Signs Temp 97.8 F 09/13/17 04:00 Pulse 98 09/13/17 04:00 Resp 24 H 09/13/17 04:00 BP 107/69 09/13/17 04:00 Pulse Ox 90 L 09/13/17 04:00 Weight - Most Recent: 120 lb 9.486 oz I&O - Last 24 Hours: Intake & Output 09/12/17 09/13/17 09/13/17 22:59 06:59 14:59 Intake Total 654 615 Balance 654 615 Lab Results Last 24 Hours: Laboratory Results - last 24 hr 09/13/17 09/13/17 Range/Units 05:00 05:00 WBC 14.9 H (4.5-11.0) K/uL RBC 4.74 (3.30-5.50) M/uL Hgb 13.9 (12.0-15.0) g/dL Hct 43.6 (36.0-48.0) % MCV 92 (80-98) fL MCH 29 (27-31) pg MCHC 32 (32-36) % Plt Count 216 (150-400) K/uL Sodium 137 L (140-148) mmol/L Potassium 4.9 (3.6-5.2) mmol/L Chloride 99 L (100-108) mmol/L Carbon Dioxide 35 H (21-32) mmol/L Anion Gap 7.9 (5.0-14.0) mmol/L BUN 21 H (7-18) mg/dL Creatinine 0.4 L (0.6-1.0) mg/dL Est Cr Clr Drug Dosing 87.29 mL/min Estimated GFR (MDRD) > 60 (>60) Glucose 126 H (74-106) mg/dL Calcium 9.0 (8.5-10.1) mg/dL Med Orders - Current: Current Medications Acetaminophen (Tylenol) 650 mg PO Q4H PRN PRN Reason: Pain (Mild 1-3)/fever Acetaminophen (Tylenol) 650 mg RECTAL Q4H PRN PRN Reason: Mild pain/fever Albuterol (Proventil Neb Soln) 2.5 mg NEB Q4H PRN PRN Reason: Shortness Of Breath/wheezing Last Admin: 09/13/17 00:11 Dose: 2.5 mg Albuterol/Ipratropium (Duoneb 3.0-0.5 Mg/3 Ml) 3 ml NEB QIDRT [facility] Last Admin: 09/13/17 07:09 Dose: 3 ml Aspirin (Halfprin) 81 mg PO DAILY [facility] Last Admin: 09/12/17 08:18 Dose: 81 mg Budesonide (Pulmicort) 0.5 mg NEB BIDRT [facility] Last Admin: 09/13/17 07:09 Dose: 0.5 mg Dimethicone/Zinc Oxide (Rash Relief-Zinc Oxide [place]) 0 gm TOP ASDIRECTED PRN PRN Reason: Rash Docusate Sodium (Colace) 100 mg PO BID PRN PRN Reason: Constipation Last Admin: 09/10/17 09:08 Dose: 100 mg Doxycycline Hyclate (Vibramycin) 100 mg PO BID [facility] Last Admin: 09/12/17 20:01 Dose: 100 mg Enoxaparin Sodium (Lovenox) 40 mg SUBCUT Q24H [facility] Last Admin: 09/12/17 19:55 Dose: 40 mg Ceftriaxone Sodium 1 gm/ (Sodium Chloride) 50 mls @ 100 mls/hr IV Q24H [facility] Last Admin: 09/12/17 10:12 Dose: 100 mls/hr Potassium Chloride/Dextrose/Sod Cl (D5 1/2 Ns W/ 20 Meq/L Kcl) 1,000 mls @ 50 mls/hr IV ASDIRECTED [facility] Last Admin: 09/12/17 18:38 Dose: 50 mls/hr Lorazepam (Ativan) 0.5 - 1 mg IVPUSH Q2H PRN PRN Reason: Anxiety Last Admin: 09/13/17 01:14 Dose: 0.5 mg Magnesium Hydroxide (Milk Of Magnesia) 30 ml PO Q12H PRN PRN Reason: Constipation Last Admin: 09/10/17 09:07 Dose: 30 ml Montelukast Sodium (Singulair) 10 mg PO BEDTIME [facility] Last Admin: 09/12/17 20:01 Dose: 10 mg Morphine Sulfate (Morphine) 2 - 4 mg IVPUSH Q2H PRN PRN Reason: Shortness of Breath Last Admin: 09/12/17 21:46 Dose: 2 mg Ondansetron HCl (Zofran) 4 mg IV Q4H PRN PRN Reason: Nausea/Vomiting Oxycodone HCl (Oxycodone) 5 mg PO Q4H PRN PRN Reason: Pain (moderate 4-6) Last Admin: 09/06/17 15:38 Dose: 5 mg Polyethylene Glycol (Miralax) 17 gm PO DAILY PRN PRN Reason: Constipation Last Admin: 09/10/17 09:08 Dose: 17 gm Prednisone (Prednisone) 20 mg PO BIDAC [facility] Last Admin: 09/12/17 16:19 Dose: 20 mg Sertraline HCl (Zoloft) 100 mg PO DAILY [facility] Last Admin: 09/12/17 08:18 Dose: 100 mg Sodium Chloride (Saline Flush) 10 ml FLUSH ASDIRECTED PRN PRN Reason: Keep Vein Open Last Admin: 09/08/17 10:15 Dose: 10 ml Discontinued Medications Albuterol/Ipratropium (Duoneb 3.0-0.5 Mg/3 Ml) 3 ml NEB ONETIME ONE Stop: 09/03/17 16:06 Last Admin: 09/03/17 16:40 Dose: 3 ml Albuterol/Ipratropium (Duoneb 3.0-0.5 Mg/3 Ml) Confirm Administered Dose 3 ml .ROUTE .STK-MED ONE Stop: 09/03/17 16:08 Last Admin: 09/04/17 16:52 Dose: Not Given Enoxaparin Sodium (Lovenox) 40 mg SUBCUT DAILY [facility] Last Admin: 09/03/17 19:52 Dose: 40 mg Levofloxacin/Dextrose 750 mg/ (Premix) 150 mls @ 100 mls/hr IV Q24H [facility] Last Admin: 09/07/17 19:45 Dose: 100 mls/hr Sodium Chloride (Normal Saline) 1,000 mls @ 75 mls/hr IV ASDIRECTED [facility] Last Admin: 09/04/17 06:10 Dose: 75 mls/hr Sodium Chloride (Normal Saline) 1,000 mls @ 50 mls/hr IV ASDIRECTED [facility] Last Admin: 09/06/17 16:47 Dose: 50 mls/hr Doxycycline Hyclate 100 mg/ (Sodium Chloride) 100 mls @ 100 mls/hr IV Q12H [facility] Last Admin: 09/10/17 22:23 Dose: 100 mls/hr Magnesium Sulfate 2 gm/ Premix 50 mls @ 12.5 mls/hr IV ONETIME ONE Stop: 09/08/17 14:59 Last Admin: 09/08/17 10:44 Dose: 12.5 mls/hr Sodium Chloride (Normal Saline) 83 mls @ 3 mls/sec IV ONETIME ONE Stop: 09/08/17 10:00 Last Admin: 09/08/17 10:15 Dose: 3 mls/sec Iopamidol (Isovue-370 (76%)) 70 ml IV . DIRECTED [facility] Stop: 09/08/17 23:00 Last Admin: 09/08/17 10:15 Dose: 70 ml Lorazepam (Ativan) 0.5 mg IVPUSH ONETIME ONE Stop: 09/03/17 16:29 Last Admin: 09/03/17 16:40 Dose: 0.5 mg Lorazepam (Ativan) 0.5 mg IVPUSH ONETIME ONE Stop: 09/03/17 17:20 Last Admin: 09/03/17 17:35 Dose: 0.5 mg Lorazepam (Ativan) 0.5 mg IVPUSH Q2H PRN PRN Reason: Anxiety Last Admin: 09/06/17 20:02 Dose: 0.5 mg Methylprednisolone Sodium Succinate (Solu-Medrol) 125 mg IVPUSH ONETIME ONE Stop: 09/03/17 15:59 Last Admin: 09/03/17 16:40 Dose: 125 mg Methylprednisolone Sodium Succinate (Solu-Medrol) 40 mg IVPUSH Q6H [facility] Last Admin: 09/05/17 04:01 Dose: 40 mg Methylprednisolone Sodium Succinate (Solu-Medrol) 40 mg IVPUSH Q12H [facility] Last Admin: 09/07/17 21:00 Dose: 40 mg Methylprednisolone Sodium Succinate (Solu-Medrol) 62.5 mg IV Q8H [facility] Last Admin: 09/11/17 09:08 Dose: 62.5 mg Morphine Sulfate (Morphine) 4 mg IVPUSH Q2H PRN PRN Reason: Shortness of Breath Last Admin: 09/12/17 10:56 Dose: 4 mg Sodium Chloride (Saline Flush) 10 ml FLUSH ONETIME PRN PRN Reason: PER RADIOLOGY PROTOCOL Stop: 09/08/17 23:00 - Exam Quality Assessment: Supplemental Oxygen, DVT Prophylaxis General: Alert, Cooperative, Mild Distress Lungs: Decreased Breath Sounds, Wheezing. No: Crackles, Rales, Rhonchi Cardiovascular: Regular Rate, Regular Rhythm, No Murmurs GI/Abdominal Exam: Soft, Non-Tender, No Organomegaly, No Distention Extremities: Non-Tender, No Pedal Edema Skin: Warm, Dry, Intact - Problem List Review Problem List Initiated/Reviewed/Updated: Yes - My Orders Last 24 Hours: My Active Orders 09/14/17 05:00 BASIC METABOLIC PANEL,BMP [CHEM] Timed CBC WITH AUTO DIFF [HEME] Timed - Plan Plan:: ASSESSMENT AND PLAN ACUTE ON CHRONIC HYPOXIC AND HYPERCAPNIC RESPIRATORY - stable since yesterday. Did use noninvasive ventilation during the night, remains very weak and short of breath with minimal activity. Appetite remains very poor and she is extremely weak. 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 Family and patient are trying to decide if they would like additional workup at this time. Short-term goal is to get her through this infection and decide on workup versus comfort cares after the hospital stay. COPD EXACERBATION SECONDARY TO BRONCHITIS - modest improvement over the past several days -Management as above PALLIATIVE CARE - patient is adamant about not wanting aggressive interventions past what we are currently doing. She understands that she is experiencing severe respiratory compromise and current interventions may not be enough to pull her through this episode. If she becomes worse despite interventions would like to be comfortable but does not want to consider intubation or mechanical ventilation. MAINTENANCE ISSUES -DVT prophylaxis; enoxaparin 40 mg subcutaneous daily -GI prophylaxis; not indicated -Bellamy catheter; not indicated -Nutrition; regular diet DISPOSITION - anticipate discharge to senior care after the hospital stay. She is working with physical therapy but very limited in what she can do at this point. Federico Ayon M.D.
[2017-09-13] MEDS: predniSONE 20 MG Tab PO SCH ×2 (10:39→16:54)
[2017-09-13] MEDS: Doxycycline 100 MG Cap PO SCH ×2 (10:40→21:20)
[2017-09-13] MEDS: Sertraline 50 MG Tab PO SCH (10:40)
[2017-09-13] MEDS: Aspirin 81 MG Tab.EC PO SCH (10:40)
[2017-09-13] MEDS: cefTRIAXone 1 GM in Sodium Chloride 0.9% 50 ML IV SCH (10:55)
[2017-09-13] MEDS: D5 1/2 NS w/ 20 mEq/L KCl 1,000 ML IV SCH (14:42)
[2017-09-13] MEDS: Morphine 2 MG/ML Syringe IVPUSH PRN ×2 (14:42→21:48)
[2017-09-13] MEDS: Enoxaparin 40 MG/0.4 ML Syringe SUBCUT SCH (21:19)
[2017-09-13] MEDS: Montelukast 10 MG Tab PO SCH (21:20)
[2017-09-14] MEDS: Morphine 2 MG/ML Syringe IVPUSH PRN ×4 (04:21→19:38)
[2017-09-14] MEDS: Albuterol 0.083% 2.5 MG/3 ML Neb Soln NEB PRN (04:21)
[2017-09-14] MEDS: Albuterol/Ipratropium 3.0-0.5 MG/3 ML Neb Soln NEB SCH ×4 (07:27→21:36)
[2017-09-14] MEDS: Budesonide 0.5 MG/2 ML Neb Susp NEB SCH ×2 (07:27→21:36)
[2017-09-14] MEDS: Aspirin 81 MG Tab.EC PO SCH (09:31)
[2017-09-14] MEDS: cefTRIAXone 1 GM in Sodium Chloride 0.9% 50 ML IV SCH (09:31)
[2017-09-14] MEDS: predniSONE 20 MG Tab PO SCH (09:31)
[2017-09-14] MEDS: Sertraline 50 MG Tab PO SCH (09:31)
[2017-09-14] MEDS: Doxycycline 100 MG Cap PO SCH ×2 (09:31→21:36)
--- NOTE | 2017-09-14 10:45 | PCM.PN ---
- General Info Date of Service: 09/14/17 Subjective Update: Ms. Cheatham is noted no significant improvement in symptoms over the past 24 hours. Appetite does seem to be modestly improved with better oral intake of liquids and solids. Vital signs have remained stable and she has been afebrile. We did discuss ongoing management today and she is leaning towards comfort cares only but would like to discuss this further with her son. - Review of Systems General: Reports: Weakness. Denies: Fever, Chills Pulmonary: Reports: Shortness of Breath, Cough, Wheezing. Denies: Pleuritic Chest Pain, Sputum, Hemoptysis Cardiovascular: Reports: Dyspnea on Exertion. Denies: Chest Pain, Palpitations , Orthopnea, PND, Edema Gastrointestinal: Reports: No Symptoms - Patient Data Vitals - Most Recent: Last Vital Signs Temp 97.8 F 09/14/17 08:00 Pulse 100 09/14/17 08:00 Resp 16 09/14/17 08:00 BP 167/76 H 09/14/17 08:00 Pulse Ox 96 09/14/17 08:00 Weight - Most Recent: 136 lb 0.403 oz I&O - Last 24 Hours: Intake & Output 09/13/17 09/14/17 09/14/17 22:59 06:59 14:59 Intake Total 977 637 240 Output Total 400 100 500 Balance 577 537 -260 Lab Results Last 24 Hours: Laboratory Results - last 24 hr 09/14/17 09/14/17 Range/Units 05:30 05:30 WBC 12.2 H (4.5-11.0) K/uL RBC 4.29 (3.30-5.50) M/uL Hgb 12.4 (12.0-15.0) g/dL Hct 39.8 (36.0-48.0) % MCV 93 (80-98) fL MCH 29 (27-31) pg MCHC 31 L (32-36) % Plt Count 193 (150-400) K/uL Neut % (Auto) 88 H (36-66) % Lymph % (Auto) 4 L (24-44) % Branch % (Auto) 8 H (2-6) % Eos % (Auto) 0 L (2-4) % Baso % (Auto) 0 (0-1) % Sodium 140 (140-148) mmol/L Potassium 4.8 (3.6-5.2) mmol/L Chloride 102 (100-108) mmol/L Carbon Dioxide 36 H (21-32) mmol/L Anion Gap 6.8 (5.0-14.0) mmol/L BUN 16 (7-18) mg/dL Creatinine 0.4 L (0.6-1.0) mg/dL Est Cr Clr Drug Dosing 87.29 mL/min Estimated GFR (MDRD) > 60 (>60) Glucose 119 H (74-106) mg/dL Calcium 8.7 (8.5-10.1) mg/dL Med Orders - Current: Current Medications Acetaminophen (Tylenol) 650 mg PO Q4H PRN PRN Reason: Pain (Mild 1-3)/fever Acetaminophen (Tylenol) 650 mg RECTAL Q4H PRN PRN Reason: Mild pain/fever Albuterol (Proventil Neb Soln) 2.5 mg NEB Q4H PRN PRN Reason: Shortness Of Breath/wheezing Last Admin: 09/14/17 04:21 Dose: 2.5 mg Albuterol/Ipratropium (Duoneb 3.0-0.5 Mg/3 Ml) 3 ml NEB QIDRT [facility] Last Admin: 09/14/17 07:27 Dose: 3 ml Aspirin (Halfprin) 81 mg PO DAILY [facility] Last Admin: 09/14/17 09:31 Dose: 81 mg Budesonide (Pulmicort) 0.5 mg NEB BIDRT [facility] Last Admin: 09/14/17 07:27 Dose: 0.5 mg Dimethicone/Zinc Oxide (Rash Relief-Zinc Oxide [place]) 0 gm TOP ASDIRECTED PRN PRN Reason: Rash Last Admin: 09/13/17 10:40 Dose: 4 spray Docusate Sodium (Colace) 100 mg PO BID PRN PRN Reason: Constipation Last Admin: 09/10/17 09:08 Dose: 100 mg Doxycycline Hyclate (Vibramycin) 100 mg PO BID [facility] Last Admin: 09/14/17 09:31 Dose: 100 mg Enoxaparin Sodium (Lovenox) 40 mg SUBCUT Q24H [facility] Last Admin: 09/13/17 21:19 Dose: 40 mg Ceftriaxone Sodium 1 gm/ (Sodium Chloride) 50 mls @ 100 mls/hr IV Q24H [facility] Last Admin: 09/14/17 09:31 Dose: 100 mls/hr Lorazepam (Ativan) 0.5 - 1 mg IVPUSH Q2H PRN PRN Reason: Anxiety Last Admin: 09/13/17 16:54 Dose: 1 mg Magnesium Hydroxide (Milk Of Magnesia) 30 ml PO Q12H PRN PRN Reason: Constipation Last Admin: 09/10/17 09:07 Dose: 30 ml Montelukast Sodium (Singulair) 10 mg PO BEDTIME [facility] Last Admin: 09/13/17 21:20 Dose: 10 mg Morphine Sulfate (Morphine) 2 - 4 mg IVPUSH Q2H PRN PRN Reason: Shortness of Breath Last Admin: 09/14/17 04:21 Dose: 2 mg Ondansetron HCl (Zofran) 4 mg IV Q4H PRN PRN Reason: Nausea/Vomiting Oxycodone HCl (Oxycodone) 5 mg PO Q4H PRN PRN Reason: Pain (moderate 4-6) Last Admin: 09/06/17 15:38 Dose: 5 mg Polyethylene Glycol (Miralax) 17 gm PO DAILY PRN PRN Reason: Constipation Last Admin: 09/10/17 09:08 Dose: 17 gm Prednisone (Prednisone) 20 mg PO BIDAC [facility] Last Admin: 09/14/17 09:31 Dose: 20 mg Sertraline HCl (Zoloft) 100 mg PO DAILY [facility] Last Admin: 09/14/17 09:31 Dose: 100 mg Sodium Chloride (Saline Flush) 10 ml FLUSH ASDIRECTED PRN PRN Reason: Keep Vein Open Last Admin: 09/08/17 10:15 Dose: 10 ml Discontinued Medications Albuterol/Ipratropium (Duoneb 3.0-0.5 Mg/3 Ml) 3 ml NEB ONETIME ONE Stop: 09/03/17 16:06 Last Admin: 09/03/17 16:40 Dose: 3 ml Albuterol/Ipratropium (Duoneb 3.0-0.5 Mg/3 Ml) Confirm Administered Dose 3 ml .ROUTE .STK-MED ONE Stop: 09/03/17 16:08 Last Admin: 09/04/17 16:52 Dose: Not Given Enoxaparin Sodium (Lovenox) 40 mg SUBCUT DAILY [facility] Last Admin: 09/03/17 19:52 Dose: 40 mg Levofloxacin/Dextrose 750 mg/ (Premix) 150 mls @ 100 mls/hr IV Q24H [facility] Last Admin: 09/07/17 19:45 Dose: 100 mls/hr Sodium Chloride (Normal Saline) 1,000 mls @ 75 mls/hr IV ASDIRECTED [facility] Last Admin: 09/04/17 06:10 Dose: 75 mls/hr Sodium Chloride (Normal Saline) 1,000 mls @ 50 mls/hr IV ASDIRECTED [facility] Last Admin: 09/06/17 16:47 Dose: 50 mls/hr Potassium Chloride/Dextrose/Sod Cl (D5 1/2 Ns W/ 20 Meq/L Kcl) 1,000 mls @ 50 mls/hr IV ASDIRECTED [facility] Last Admin: 09/13/17 14:42 Dose: 50 mls/hr Doxycycline Hyclate 100 mg/ (Sodium Chloride) 100 mls @ 100 mls/hr IV Q12H [facility] Last Admin: 09/10/17 22:23 Dose: 100 mls/hr Magnesium Sulfate 2 gm/ Premix 50 mls @ 12.5 mls/hr IV ONETIME ONE Stop: 09/08/17 14:59 Last Admin: 09/08/17 10:44 Dose: 12.5 mls/hr Sodium Chloride (Normal Saline) 83 mls @ 3 mls/sec IV ONETIME ONE Stop: 09/08/17 10:00 Last Admin: 09/08/17 10:15 Dose: 3 mls/sec Iopamidol (Isovue-370 (76%)) 70 ml IV . DIRECTED [facility] Stop: 09/08/17 23:00 Last Admin: 09/08/17 10:15 Dose: 70 ml Lorazepam (Ativan) 0.5 mg IVPUSH ONETIME ONE Stop: 09/03/17 16:29 Last Admin: 09/03/17 16:40 Dose: 0.5 mg Lorazepam (Ativan) 0.5 mg IVPUSH ONETIME ONE Stop: 09/03/17 17:20 Last Admin: 09/03/17 17:35 Dose: 0.5 mg Lorazepam (Ativan) 0.5 mg IVPUSH Q2H PRN PRN Reason: Anxiety Last Admin: 09/06/17 20:02 Dose: 0.5 mg Methylprednisolone Sodium Succinate (Solu-Medrol) 125 mg IVPUSH ONETIME ONE Stop: 09/03/17 15:59 Last Admin: 09/03/17 16:40 Dose: 125 mg Methylprednisolone Sodium Succinate (Solu-Medrol) 40 mg IVPUSH Q6H [facility] Last Admin: 09/05/17 04:01 Dose: 40 mg Methylprednisolone Sodium Succinate (Solu-Medrol) 40 mg IVPUSH Q12H [facility] Last Admin: 09/07/17 21:00 Dose: 40 mg Methylprednisolone Sodium Succinate (Solu-Medrol) 62.5 mg IV Q8H [facility] Last Admin: 09/11/17 09:08 Dose: 62.5 mg Morphine Sulfate (Morphine) 4 mg IVPUSH Q2H PRN PRN Reason: Shortness of Breath Last Admin: 09/12/17 10:56 Dose: 4 mg Sodium Chloride (Saline Flush) 10 ml FLUSH ONETIME PRN PRN Reason: PER RADIOLOGY PROTOCOL Stop: 09/08/17 23:00 - Exam Quality Assessment: Supplemental Oxygen, DVT Prophylaxis General: Alert, Oriented, Cooperative, Moderate Distress Lungs: Decreased Breath Sounds, Wheezing. No: Crackles, Rales, Rhonchi, Rub Cardiovascular: Regular Rate, Regular Rhythm, No Murmurs GI/Abdominal Exam: Soft, Non-Tender, No Organomegaly, No Distention Extremities: Non-Tender, No Pedal Edema Skin: Warm, Dry, Intact - Problem List Review Problem List Initiated/Reviewed/Updated: Yes - My Orders Last 24 Hours: My Active Orders 09/14/17 10:40 Convert IV to Saline Lock [OM.PC] Routine 09/15/17 05:00 BASIC METABOLIC PANEL,BMP [CHEM] Timed CBC WITH AUTO DIFF [HEME] Timed 09/15/17 09:00 predniSONE 20 mg PO DAILY - Plan Plan:: ASSESSMENT AND PLAN ACUTE ON CHRONIC HYPOXIC AND HYPERCAPNIC RESPIRATORY - no significant improvement noted over the last several days. She is interested in considering comfort cares only especially in light of probable underlying lung cancer. She has not used noninvasive ventilation over the past 36 hours. -Saline lock IV -Follow-up cultures -Noninvasive positive pressure ventilation as needed, especially overnight to rest -Nebulizer therapy with albuterol, duo nebs, and Pulmicort -Discontinue antibiotic therapy -Continue prednisone, decrease dose to 20 mg by mouth daily LEFT LUNG MASS - noted on CT scan. 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 Family and patient are trying to decide if they would like additional workup at this time. Short-term goal is to get her through this infection and decide on workup versus comfort cares after the hospital stay. COPD EXACERBATION SECONDARY TO BRONCHITIS -Management as above PALLIATIVE CARE - patient is adamant about not wanting aggressive interventions past what we are currently doing. She understands that she is experiencing severe respiratory compromise and current interventions may not be enough to pull her through this episode. If she becomes worse despite interventions would like to be comfortable but does not want to consider intubation or mechanical ventilation. MAINTENANCE ISSUES -DVT prophylaxis; enoxaparin 40 mg subcutaneous daily -GI prophylaxis; not indicated -Bellamy catheter; not indicated -Nutrition; regular diet DISPOSITION - [facility]. She is working with physical therapy but very limited in what she can do at this point.
[2017-09-14] MEDS: Enoxaparin 40 MG/0.4 ML Syringe SUBCUT SCH (19:39)
[2017-09-14] MEDS: Montelukast 10 MG Tab PO SCH (21:36)
[2017-09-15] MEDS: Albuterol 0.083% 2.5 MG/3 ML Neb Soln NEB PRN (00:28)
[2017-09-15] MEDS: Morphine 2 MG/ML Syringe IVPUSH PRN ×2 (00:29→03:56)
[2017-09-15] MEDS: Budesonide 0.5 MG/2 ML Neb Susp NEB SCH ×2 (07:06→20:17)
[2017-09-15] MEDS: Albuterol/Ipratropium 3.0-0.5 MG/3 ML Neb Soln NEB SCH ×4 (07:06→20:17)
[2017-09-15] MEDS ORDERED: predniSONE 20 MG Tab PO SCH (08:00)
[2017-09-15] MEDS: Doxycycline 100 MG Cap PO SCH (10:27)
[2017-09-15] MEDS: Sertraline 50 MG Tab PO SCH (10:27)
[2017-09-15] MEDS: Aspirin 81 MG Tab.EC PO SCH (10:27)
[2017-09-15] MEDS: LORazepam 2 MG/ML MDV IVPUSH PRN (11:19)
[2017-09-15] MEDS ORDERED: predniSONE 10 MG Tab PO SCH (14:36)
[2017-09-15] MEDS ORDERED: Morphine 10 MG/0.5 ML Oral Syringe SL PRN (14:37)
--- NOTE | 2017-09-15 14:44 | PCM.PN ---
- General Info Subjective Update: Ms. Cheatham is been stable since yesterday, shortness of breath and cough significantly improved since admission. Despite this remains very compromised by her respiratory status and become short of breath with very minimal exertion. She has decided that she wants comfort cares only with no further aggressive intervention or management. She will consider hospice care after [facility] the [facility]. - Review of Systems General: Reports: Weakness. Denies: Fever, Chills Pulmonary: Reports: Shortness of Breath, Cough, Wheezing. Denies: Pleuritic Chest Pain, Sputum, Hemoptysis Cardiovascular: Reports: Dyspnea on Exertion. Denies: Chest Pain, Palpitations , Orthopnea, PND, Edema Gastrointestinal: Reports: No Symptoms Musculoskeletal: Reports: No Symptoms - Patient Data Vitals - Most Recent: Last Vital Signs Temp 97.9 F 09/15/17 07:47 Pulse 88 09/15/17 10:59 Resp 20 09/15/17 07:47 BP 106/81 09/15/17 07:47 Pulse Ox 99 09/15/17 07:47 Weight - Most Recent: 134 lb 7.712 oz I&O - Last 24 Hours: Intake & Output 09/14/17 09/15/17 09/15/17 22:59 06:59 14:59 Intake Total 340 Output Total 350 Balance -10 Lab Results Last 24 Hours: Laboratory Results - last 24 hr 09/15/17 09/15/17 Range/Units 05:43 05:43 WBC 12.2 H (4.5-11.0) K/uL RBC 4.22 (3.30-5.50) M/uL Hgb 12.5 (12.0-15.0) g/dL Hct 39.4 (36.0-48.0) % MCV 93 (80-98) fL MCH 30 (27-31) pg MCHC 32 (32-36) % Plt Count 191 (150-400) K/uL Neut % (Auto) 84 H (36-66) % Lymph % (Auto) 7 L (24-44) % [place] % (Auto) 8 H (2-6) % Eos % (Auto) 2 (2-4) % Baso % (Auto) 0 (0-1) % Sodium 140 (140-148) mmol/L Potassium 4.5 (3.6-5.2) mmol/L Chloride 102 (100-108) mmol/L Carbon Dioxide 35 H (21-32) mmol/L Anion Gap 7.5 (5.0-14.0) mmol/L BUN 19 H (7-18) mg/dL Creatinine 0.5 L (0.6-1.0) mg/dL Est Cr Clr Drug Dosing 69.83 mL/min Estimated GFR (MDRD) > 60 (>60) Glucose 96 (74-106) mg/dL Calcium 8.9 (8.5-10.1) mg/dL Med Orders - Current: Current Medications Acetaminophen (Tylenol) 650 mg PO Q4H PRN PRN Reason: Pain (Mild 1-3)/fever Acetaminophen (Tylenol) 650 mg RECTAL Q4H PRN PRN Reason: Mild pain/fever Albuterol (Proventil Neb Soln) 2.5 mg NEB Q4H PRN PRN Reason: Shortness Of Breath/wheezing Last Admin: 09/15/17 00:28 Dose: 2.5 mg Albuterol/Ipratropium (Duoneb 3.0-0.5 Mg/3 Ml) 3 ml NEB QIDRT [facility] Last Admin: 09/15/17 14:26 Dose: 3 ml Aspirin (Halfprin) 81 mg PO DAILY [facility] Last Admin: 09/15/17 10:27 Dose: 81 mg Budesonide (Pulmicort) 0.5 mg NEB BIDRT [facility] Last Admin: 09/15/17 07:06 Dose: 0.5 mg Dimethicone/Zinc Oxide (Rash Relief-Zinc Oxide [place]) 0 gm TOP ASDIRECTED PRN PRN Reason: Rash Last Admin: 09/13/17 10:40 Dose: 4 spray Docusate Sodium (Colace) 100 mg PO BID PRN PRN Reason: Constipation Last Admin: 09/10/17 09:08 Dose: 100 mg Enoxaparin Sodium (Lovenox) 40 mg SUBCUT Q24H [facility] Last Admin: 09/14/17 19:39 Dose: 40 mg Lorazepam (Ativan Oral Concentrate 1mg/0.5 Ml U/D) 0.5 mg PO Q2H PRN PRN Reason: Anxiety Magnesium Hydroxide (Milk Of Magnesia) 30 ml PO Q12H PRN PRN Reason: Constipation Last Admin: 09/10/17 09:07 Dose: 30 ml Montelukast Sodium (Singulair) 10 mg PO BEDTIME [facility] Last Admin: 09/14/17 21:36 Dose: 10 mg Morphine Sulfate (Morphine 10 Mg/0.5 Ml Oral Syringe) 5 mg SL Q1H PRN PRN Reason: Dyspnea Ondansetron HCl (Zofran) 4 mg IV Q4H PRN PRN Reason: Nausea/Vomiting Oxycodone HCl (Oxycodone) 5 mg PO Q4H PRN PRN Reason: Pain (moderate 4-6) Last Admin: 09/06/17 15:38 Dose: 5 mg Polyethylene Glycol (Miralax) 17 gm PO DAILY PRN PRN Reason: Constipation Last Admin: 09/10/17 09:08 Dose: 17 gm Prednisone (Prednisone) 10 mg PO DAILY@0800 [facility] Sertraline HCl (Zoloft) 100 mg PO DAILY [facility] Last Admin: 09/15/17 10:27 Dose: 100 mg Sodium Chloride (Saline Flush) 10 ml FLUSH ASDIRECTED PRN PRN Reason: Keep Vein Open Last Admin: 09/08/17 10:15 Dose: 10 ml Discontinued Medications Albuterol/Ipratropium (Duoneb 3.0-0.5 Mg/3 Ml) 3 ml NEB ONETIME ONE Stop: 09/03/17 16:06 Last Admin: 09/03/17 16:40 Dose: 3 ml Albuterol/Ipratropium (Duoneb 3.0-0.5 Mg/3 Ml) Confirm Administered Dose 3 ml .ROUTE .STK-MED ONE Stop: 09/03/17 16:08 Last Admin: 09/04/17 16:52 Dose: Not Given Doxycycline Hyclate (Vibramycin) 100 mg PO BID [facility] Last Admin: 09/15/17 10:27 Dose: 100 mg Enoxaparin Sodium (Lovenox) 40 mg SUBCUT DAILY [facility] Last Admin: 09/03/17 19:52 Dose: 40 mg Levofloxacin/Dextrose 750 mg/ (Premix) 150 mls @ 100 mls/hr IV Q24H [facility] Last Admin: 09/07/17 19:45 Dose: 100 mls/hr Sodium Chloride (Normal Saline) 1,000 mls @ 75 mls/hr IV ASDIRECTED [facility] Last Admin: 09/04/17 06:10 Dose: 75 mls/hr Sodium Chloride (Normal Saline) 1,000 mls @ 50 mls/hr IV ASDIRECTED [facility] Last Admin: 09/06/17 16:47 Dose: 50 mls/hr Ceftriaxone Sodium 1 gm/ (Sodium Chloride) 50 mls @ 100 mls/hr IV Q24H [facility] Last Admin: 09/14/17 09:31 Dose: 100 mls/hr Potassium Chloride/Dextrose/Sod Cl (D5 1/2 Ns W/ 20 Meq/L Kcl) 1,000 mls @ 50 mls/hr IV ASDIRECTED [facility] Last Admin: 09/13/17 14:42 Dose: 50 mls/hr Doxycycline Hyclate 100 mg/ (Sodium Chloride) 100 mls @ 100 mls/hr IV Q12H [facility] Last Admin: 09/10/17 22:23 Dose: 100 mls/hr Magnesium Sulfate 2 gm/ Premix 50 mls @ 12.5 mls/hr IV ONETIME ONE Stop: 09/08/17 14:59 Last Admin: 09/08/17 10:44 Dose: 12.5 mls/hr Sodium Chloride (Normal Saline) 83 mls @ 3 mls/sec IV ONETIME ONE Stop: 09/08/17 10:00 Last Admin: 09/08/17 10:15 Dose: 3 mls/sec Iopamidol (Isovue-370 (76%)) 70 ml IV . DIRECTED [facility] Stop: 09/08/17 23:00 Last Admin: 09/08/17 10:15 Dose: 70 ml Lorazepam (Ativan) 0.5 mg IVPUSH ONETIME ONE Stop: 09/03/17 16:29 Last Admin: 09/03/17 16:40 Dose: 0.5 mg Lorazepam (Ativan) 0.5 mg IVPUSH ONETIME ONE Stop: 09/03/17 17:20 Last Admin: 09/03/17 17:35 Dose: 0.5 mg Lorazepam (Ativan) 0.5 mg IVPUSH Q2H PRN PRN Reason: Anxiety Last Admin: 09/06/17 20:02 Dose: 0.5 mg Lorazepam (Ativan) 0.5 - 1 mg IVPUSH Q2H PRN PRN Reason: Anxiety Last Admin: 09/15/17 11:19 Dose: 0.5 mg Methylprednisolone Sodium Succinate (Solu-Medrol) 125 mg IVPUSH ONETIME ONE Stop: 09/03/17 15:59 Last Admin: 09/03/17 16:40 Dose: 125 mg Methylprednisolone Sodium Succinate (Solu-Medrol) 40 mg IVPUSH Q6H [facility] Last Admin: 09/05/17 04:01 Dose: 40 mg Methylprednisolone Sodium Succinate (Solu-Medrol) 40 mg IVPUSH Q12H [facility] Last Admin: 09/07/17 21:00 Dose: 40 mg Methylprednisolone Sodium Succinate (Solu-Medrol) 62.5 mg IV Q8H [facility] Last Admin: 09/11/17 09:08 Dose: 62.5 mg Morphine Sulfate (Morphine) 4 mg IVPUSH Q2H PRN PRN Reason: Shortness of Breath Last Admin: 09/12/17 10:56 Dose: 4 mg Morphine Sulfate (Morphine) 2 - 4 mg IVPUSH Q2H PRN PRN Reason: Shortness of Breath Last Admin: 09/15/17 03:56 Dose: 2 mg Prednisone (Prednisone) 20 mg PO BIDAC [facility] Last Admin: 09/14/17 09:31 Dose: 20 mg Prednisone (Prednisone) 20 mg PO DAILY@0800 [facility] Last Admin: 09/15/17 10:27 Dose: 20 mg Sodium Chloride (Saline Flush) 10 ml FLUSH ONETIME PRN PRN Reason: PER RADIOLOGY PROTOCOL Stop: 09/08/17 23:00 - Exam Quality Assessment: Supplemental Oxygen, DVT Prophylaxis General: Alert, Oriented, Cooperative, Mild Distress Lungs: Decreased Breath Sounds, Wheezing. No: Crackles, Rales, Rhonchi, Rub, Stridor Cardiovascular: Regular Rate, Regular Rhythm, No Murmurs GI/Abdominal Exam: Soft, Non-Tender, No Organomegaly, No Distention Extremities: Non-Tender, No Pedal Edema Skin: Warm, Dry, Intact - Problem List Review Problem List Initiated/Reviewed/Updated: Yes - My Orders Last 24 Hours: My Active Orders 09/15/17 14:36 predniSONE 10 mg PO DAILY@0800 09/15/17 14:37 LORazepam [Ativan ORAL Concentrate 1MG/0.5 ML U/D] 0.5 mg PO Q2H PRN Morphine [Morphine 10 MG/0.5 ML Oral Syringe] 5 mg SL Q1H PRN - Plan Plan:: ASSESSMENT AND PLAN ACUTE ON CHRONIC HYPOXIC AND HYPERCAPNIC RESPIRATORY - improved since admission , but still significantly compromised by her baseline COPD -Saline lock IV -Follow-up cultures -Nebulizer therapy with albuterol, duo nebs, and Pulmicort -Continue prednisone, decrease dose to 10 mg by mouth daily LEFT LUNG MASS - noted on CT scan. 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 Family and patient are trying to decide if they would like additional workup at this time. Short-term goal is to get her through this infection and decide on workup versus comfort cares after the hospital stay. COPD EXACERBATION SECONDARY TO BRONCHITIS -Management as above PALLIATIVE CARE - patient is adamant about not wanting aggressive interventions past what we are currently doing. She understands that she is experiencing severe respiratory compromise and current interventions may not be enough to pull her through this episode. If she becomes worse despite interventions would like to be comfortable but does not want to consider intubation or mechanical ventilation. She is now decided to pursue comfort cares only and is going to consider hospice admission after discharge to the [facility]. MAINTENANCE ISSUES -DVT prophylaxis; enoxaparin 40 mg subcutaneous daily -GI prophylaxis; not indicated -Bellamy catheter; not indicated -Nutrition; regular diet DISPOSITION - anticipate discharge to [facility] after the hospital stay. She is working with physical therapy but very limited in what she can do at this point.
[2017-09-15] MEDS: LORazepam ORAL Concentrate 1MG/0.5ML U/D PO PRN ×2 (14:53→17:43)
[2017-09-15] MEDS ORDERED: Ondansetron 4 MG Tab.DIS PO PRN (15:51)
[2017-09-15] MEDS: Enoxaparin 40 MG/0.4 ML Syringe SUBCUT SCH (20:16)
[2017-09-15] MEDS: Montelukast 10 MG Tab PO SCH (20:17)
[2017-09-16] MEDS: LORazepam ORAL Concentrate 1MG/0.5ML U/D PO PRN ×4 (00:06→09:53)
[2017-09-16] MEDS: Albuterol/Ipratropium 3.0-0.5 MG/3 ML Neb Soln NEB SCH ×2 (07:05→10:44)
[2017-09-16] MEDS: Budesonide 0.5 MG/2 ML Neb Susp NEB SCH (07:06)
[2017-09-16 07:53] VITALS: BP 134/68
[2017-09-16] MEDS: Aspirin 81 MG Tab.EC PO SCH (09:54)
[2017-09-16] MEDS: Sertraline 50 MG Tab PO SCH (09:55)
--- NOTE | 2017-09-16 15:19 | PCM.DCSUM1 ---
Discharge Summary - Hospital Course Brief History: Ms. Cheatham is a 76-year-old woman with a known history of COPD. Prior to admission she developed increased shortness of breath with cough and weakness. On evaluation in the emergency department chest x-ray showed no obvious infiltrates but she was found to have significant hypoxia and hypercapnia secondary to COPD exacerbation and bronchitis. - Discharge Data Discharge Date: 09/16/17 Discharge Disposition: DC/Tfer to SNF 03 Condition: Poor - Discharge Diagnosis/Problem(s) (1) COPD, very severe SNOMED Code(s): 487248948 ICD Code: J44.9 - CHRONIC OBSTRUCTIVE PULMONARY DISEASE, UNSPECIFIED Status : Acute (2) Bronchitis SNOMED Code(s): 77049413 ICD Code: J40 - BRONCHITIS, NOT SPECIFIED ACUTE OR CHRONIC Status: Acute (3) Lung cancer SNOMED Code(s): 497816903 ICD Code: C34.90 - MALIGNANT NEOPLASM OF UNSP PART OF UNSP BRONCHUS OR LUNG Status: Acute (4) COPD exacerbation SNOMED Code(s): 416570080591855 ICD Code: J44.1 - CHRONIC OBSTRUCTIVE PULMONARY DISEASE W (ACUTE) EXACERBATION Status: Chronic Priority: High (5) Acute on chronic respiratory failure with hypoxia and hypercapnia SNOMED Code(s): 20524610 ICD Code: J96.21 - ACUTE AND CHRONIC RESPIRATORY FAILURE WITH HYPOXIA; J96.22 - ACUTE AND CHRONIC RESPIRATORY FAILURE WITH HYPERCAPNIA Status: Acute (6) Palliative care status SNOMED Code(s): 153304081 ICD Code: Z51.5 - ENCOUNTER FOR PALLIATIVE CARE Status: Acute - Patient Summary/Data Consults: Consultations 09/13/17 07:00 Consult to Speech Language Pathology [SALES ASSISTANT INSTITUTIONAL SALES Evaluation and Treatment] [CONS] Routine Please Evaluate and Treat SALES ASSISTANT INSTITUTIONAL SALES Reason for Consult: Dysphagia This query below is only for informational purposes and is not editable. Admission Diagnosis/Problem: Hypoxia 09/03/17 17:39 PT Evaluation and Treatment [CONS] Routine Please Evaluate and Treat. PT Reason for Consult: Strengthening This query below is only for informational purposes and is not editable. Hospital Course: Ms. Cheatham is a 76-year-old woman with a known history of COPD and intermittent oxygen use at home. For a few days prior to admission developed cough with increased shortness of breath and weakness. On evaluation in the emergency department there was no obvious infiltrate on chest x-ray, she was experiencing obvious respiratory compromise with significant hypoxia and hypercapnia. She was felt to have probable COPD exacerbation secondary to bronchitis. Antigens for influenza A and B were found to be negative. Because of respiratory compromise she was treated with noninvasive positive pressure ventilation. She did want the late of care status as she was not interested in resuming further aggressive interventions including intubation or mechanical ventilation. She was treated with IV antibiotics and blood cultures were obtained at the time of admission. Blood cultures remain negative throughout her hospital stay. She was noted to have very slow improvement in her respiratory status, at the time of discharge was feeling somewhat better but continued to require supplemental oxygen. For a period of 72 hours prior to discharge she had not required use of the noninvasive positive pressure ventilation. Prior to discharge we did discuss options for ongoing management and she has requested comfort cares only status with no further hospitalizations or significant interventions. She would like to be comfortable and is considering hospice admission after discharge. Activity will be as tolerated and she will resume her usual diet. Follow-up with primary care will be as needed at the [place] [facility] and she will be on continuous oxygen 2 L/m via nasal cannula. Morphine and lorazepam prescriptions were written at the time of discharge for ongoing comfort management. - Patient Instructions Diet: Regular Diet as Tolerated Activity: As Tolerated Other/Special Instructions: Physical therapy and occupational therapy while at the [place] [facility]. - Discharge Plan Prescriptions/Med Rec: Albuterol [IJD: Albuterol] 2.5 mg NEB Q4H PRN #100 nebule PRN Reason: Shortness Of Breath/wheezing Albuterol/Ipratropium [DuoNeb 3.0-0.5 MG/3 ML] 3 ml NEB QIDRT #120 neb Budesonide [Pulmicort] 0.5 mg NEB BIDRT #60 neb LORazepam [Ativan ORAL Concentrate 1MG/0.5 ML U/D] 0.5 mg PO Q2H PRN #30 ml PRN Reason: Anxiety Morphine [Morphine 10 MG/0.5 ML Oral Syringe] 5 mg SL Q1H PRN #30 ml PRN Reason: Dyspnea predniSONE 10 mg PO DAILY@0800 #15 tablet Home Medications: Home Meds Albuterol [Proair HFA] 2 puff INH Q4H 05/11/15 [History] Aspirin [Adult Low Dose Aspirin EC] 81 mg PO DAILY 05/11/15 [History] Biotin 1 mg PO DAILY 05/11/15 [History] Cholecalciferol (Vitamin D3) [Vitamin D3] 1,000 unit PO DAILY 05/11/15 [History] Montelukast [Singulair] 10 mg PO BEDTIME 05/11/15 [History] Multivitamin [Multi-Vitamin Daily] 1 tab PO DAILY 05/11/15 [History] Sertraline [Zoloft] 100 mg PO DAILY 05/11/15 [History] Albuterol [IJD: Albuterol] 2.5 mg NEB Q4H PRN #100 nebule 09/16/17 [Rx] Albuterol/Ipratropium [DuoNeb 3.0-0.5 MG/3 ML] 3 ml NEB QIDRT #120 neb 09/16/17 [Rx] Budesonide [Pulmicort] 0.5 mg NEB BIDRT #60 neb 09/16/17 [Rx] LORazepam [Ativan ORAL Concentrate 1MG/0.5 ML U/D] 0.5 mg PO Q2H PRN #30 ml 07/24 [Rx] Morphine [Morphine 10 MG/0.5 ML Oral Syringe] 5 mg SL Q1H PRN #30 ml 09/16/17 [ Rx] predniSONE 10 mg PO DAILY@0800 #15 tablet 09/16/17 [Rx] - Patient Data Vitals - Most Recent: Last Vital Signs Temp 98.3 F 09/16/17 07:44 Pulse 88 09/16/17 10:44 Resp 24 H 09/16/17 07:44 BP 134/68 09/16/17 07:44 Pulse Ox 94 L 09/16/17 07:44 Weight - Most Recent: 121 lb 0.54 oz I&O - Last 24 hours: Intake & Output 09/16/17 09/16/17 09/16/17 06:59 14:59 22:59 Intake Total 100 Output Total 750 Balance -750 100 Med Orders - Current: Current Medications Discontinued Medications Acetaminophen (Tylenol) 650 mg PO Q4H PRN PRN Reason: Pain (Mild 1-3)/fever Acetaminophen (Tylenol) 650 mg RECTAL Q4H PRN PRN Reason: Mild pain/fever Albuterol (Proventil Neb Soln) 2.5 mg NEB Q4H PRN PRN Reason: Shortness Of Breath/wheezing Last Admin: 09/15/17 00:28 Dose: 2.5 mg Albuterol/Ipratropium (Duoneb 3.0-0.5 Mg/3 Ml) 3 ml NEB ONETIME ONE Stop: 09/03/17 16:06 Last Admin: 09/03/17 16:40 Dose: 3 ml Albuterol/Ipratropium (Duoneb 3.0-0.5 Mg/3 Ml) Confirm Administered Dose 3 ml .ROUTE .STK-MED ONE Stop: 09/03/17 16:08 Last Admin: 09/04/17 16:52 Dose: Not Given Albuterol/Ipratropium (Duoneb 3.0-0.5 Mg/3 Ml) 3 ml NEB QIDRT [facility] Last Admin: 09/16/17 10:44 Dose: 3 ml Aspirin (Halfprin) 81 mg PO DAILY [facility] Last Admin: 09/16/17 09:54 Dose: 81 mg Budesonide (Pulmicort) 0.5 mg NEB BIDRT [facility] Last Admin: 09/16/17 07:06 Dose: 0.5 mg Dimethicone/Zinc Oxide (Rash Relief-Zinc Oxide [place]) 0 gm TOP ASDIRECTED PRN PRN Reason: Rash Last Admin: 09/13/17 10:40 Dose: 4 spray Docusate Sodium (Colace) 100 mg PO BID PRN PRN Reason: Constipation Last Admin: 09/10/17 09:08 Dose: 100 mg Doxycycline Hyclate (Vibramycin) 100 mg PO BID [facility] Last Admin: 09/15/17 10:27 Dose: 100 mg Enoxaparin Sodium (Lovenox) 40 mg SUBCUT DAILY [facility] Last Admin: 09/03/17 19:52 Dose: 40 mg Enoxaparin Sodium (Lovenox) 40 mg SUBCUT Q24H [facility] Last Admin: 09/15/17 20:16 Dose: 40 mg Levofloxacin/Dextrose 750 mg/ (Premix) 150 mls @ 100 mls/hr IV Q24H [facility] Last Admin: 09/07/17 19:45 Dose: 100 mls/hr Sodium Chloride (Normal Saline) 1,000 mls @ 75 mls/hr IV ASDIRECTED [facility] Last Admin: 09/04/17 06:10 Dose: 75 mls/hr Sodium Chloride (Normal Saline) 1,000 mls @ 50 mls/hr IV ASDIRECTED [facility] Last Admin: 09/06/17 16:47 Dose: 50 mls/hr Ceftriaxone Sodium 1 gm/ (Sodium Chloride) 50 mls @ 100 mls/hr IV Q24H [facility] Last Admin: 09/14/17 09:31 Dose: 100 mls/hr Potassium Chloride/Dextrose/Sod Cl (D5 1/2 Ns W/ 20 Meq/L Kcl) 1,000 mls @ 50 mls/hr IV ASDIRECTED [facility] Last Admin: 09/13/17 14:42 Dose: 50 mls/hr Doxycycline Hyclate 100 mg/ (Sodium Chloride) 100 mls @ 100 mls/hr IV Q12H [facility] Last Admin: 09/10/17 22:23 Dose: 100 mls/hr Magnesium Sulfate 2 gm/ Premix 50 mls @ 12.5 mls/hr IV ONETIME ONE Stop: 09/08/17 14:59 Last Admin: 09/08/17 10:44 Dose: 12.5 mls/hr Sodium Chloride (Normal Saline) 83 mls @ 3 mls/sec IV ONETIME ONE Stop: 09/08/17 10:00 Last Admin: 09/08/17 10:15 Dose: 3 mls/sec Iopamidol (Isovue-370 (76%)) 70 ml IV . DIRECTED [facility] Stop: 09/08/17 23:00 Last Admin: 09/08/17 10:15 Dose: 70 ml Lorazepam (Ativan) 0.5 mg IVPUSH ONETIME ONE Stop: 09/03/17 16:29 Last Admin: 09/03/17 16:40 Dose: 0.5 mg Lorazepam (Ativan) 0.5 mg IVPUSH ONETIME ONE Stop: 09/03/17 17:20 Last Admin: 09/03/17 17:35 Dose: 0.5 mg Lorazepam (Ativan) 0.5 mg IVPUSH Q2H PRN PRN Reason: Anxiety Last Admin: 09/06/17 20:02 Dose: 0.5 mg Lorazepam (Ativan) 0.5 - 1 mg IVPUSH Q2H PRN PRN Reason: Anxiety Last Admin: 09/15/17 11:19 Dose: 0.5 mg Lorazepam (Ativan Oral Concentrate 1mg/0.5 Ml U/D) 0.5 mg PO Q2H PRN PRN Reason: Anxiety Last Admin: 09/16/17 09:53 Dose: 0.5 mg Magnesium Hydroxide (Milk Of Magnesia) 30 ml PO Q12H PRN PRN Reason: Constipation Last Admin: 09/10/17 09:07 Dose: 30 ml Methylprednisolone Sodium Succinate (Solu-Medrol) 125 mg IVPUSH ONETIME ONE Stop: 09/03/17 15:59 Last Admin: 09/03/17 16:40 Dose: 125 mg Methylprednisolone Sodium Succinate (Solu-Medrol) 40 mg IVPUSH Q6H [facility] Last Admin: 09/05/17 04:01 Dose: 40 mg Methylprednisolone Sodium Succinate (Solu-Medrol) 40 mg IVPUSH Q12H [facility] Last Admin: 09/07/17 21:00 Dose: 40 mg Methylprednisolone Sodium Succinate (Solu-Medrol) 62.5 mg IV Q8H [facility] Last Admin: 09/11/17 09:08 Dose: 62.5 mg Montelukast Sodium (Singulair) 10 mg PO BEDTIME [facility] Last Admin: 09/15/17 20:17 Dose: 10 mg Morphine Sulfate (Morphine) 4 mg IVPUSH Q2H PRN PRN Reason: Shortness of Breath Last Admin: 09/12/17 10:56 Dose: 4 mg Morphine Sulfate (Morphine) 2 - 4 mg IVPUSH Q2H PRN PRN Reason: Shortness of Breath Last Admin: 09/15/17 03:56 Dose: 2 mg Morphine Sulfate (Morphine 10 Mg/0.5 Ml Oral Syringe) 5 mg SL Q1H PRN PRN Reason: Dyspnea Ondansetron HCl (Zofran) 4 mg IV Q4H PRN PRN Reason: Nausea/Vomiting Ondansetron HCl (Zofran Odt) 4 mg PO Q4H PRN PRN Reason: Nausea/Vomiting Oxycodone HCl (Oxycodone) 5 mg PO Q4H PRN PRN Reason: Pain (moderate 4-6) Last Admin: 09/06/17 15:38 Dose: 5 mg Polyethylene Glycol (Miralax) 17 gm PO DAILY PRN PRN Reason: Constipation Last Admin: 09/10/17 09:08 Dose: 17 gm Prednisone (Prednisone) 20 mg PO BIDAC [facility] Last Admin: 09/14/17 09:31 Dose: 20 mg Prednisone (Prednisone) 20 mg PO DAILY@0800 [facility] Last Admin: 09/15/17 10:27 Dose: 20 mg Prednisone (Prednisone) 10 mg PO DAILY@0800 [facility] Last Admin: 09/16/17 09:54 Dose: 10 mg Sertraline HCl (Zoloft) 100 mg PO DAILY [facility] Last Admin: 09/16/17 09:55 Dose: 100 mg Sodium Chloride (Saline Flush) 10 ml FLUSH ASDIRECTED PRN PRN Reason: Keep Vein Open Last Admin: 09/08/17 10:15 Dose: 10 ml Sodium Chloride (Saline Flush) 10 ml FLUSH ONETIME PRN PRN Reason: PER RADIOLOGY PROTOCOL Stop: 09/08/17 23:00 *Q Meaningful Use (DIS) - VTE *Q VTE Criteria *Q: - Stroke *Q Stroke Criteria *Q: - AMI *Q AMI Criteria *Q:
== END 2017-09-16 11:44 | DRG 190 ==
LOC: JP.ED 15:56 → JP.ICU 17:21 → JP.MS 09-15 08:45
PROVIDERS: ADMIT Hospitalist; ATTEND Hospitalist
DX: J44.1 Chronic obstructive pulmonary disease with (acute) exacerbation (principal); J96.21 Acute and chronic respiratory failure with hypoxia; J96.22 Acute and chronic respiratory failure with hypercapnia; C34.90 Malignant neoplasm of unspecified part of unspecified bronchus or lung; F41.9 Anxiety disorder, unspecified; Z99.81 Dependence on supplemental oxygen; Z87.891 Personal history of nicotine dependence; R06.02 Shortness of breath; R05 Cough; R53.1 Weakness; H81.10 Benign paroxysmal vertigo, unspecified ear; F32.9 Major depressive disorder, single episode, unspecified; Z66 Do not resuscitate; Z51.5 Encounter for palliative care; Z90.01 Acquired absence of eye; Z79.82 Long term (current) use of aspirin; Z88.1 Allergy status to other antibiotic agents; Z88.2 Allergy status to sulfonamides; Z88.8 Allergy status to other drugs, medicaments and biological substances
CPT/HCPCS: 36415; 36600; 70450 ×2; 71010 ×2; 80053; 82803; 84484; 85025; 94640; 94660; 96374; 96375; 99283; 99284 ×2; 99285; A9270; J2060; J2930; J7620; 71275; 71275-26; 80048; 83605; 83735; 85027; 85379; 87040; 87804; 92610-GN; 97110-GP; 97162-GP; J0696; J1650; J1956; J2270; J2920; J3475; J3480; J7030; J7040; J7050; J7626; Q9967